=== PATIENT | male | born 1955 | race Caucasian/White ===

== ENCOUNTER → 2016-05-29 | Outpatient (REF) | payer OTHER | LOC: M SFHCCLAY 06:46 | PROVIDERS: ATTEND Nurse Practitioner | DX: Z53.8 Procedure and treatment not carried out for other reasons (principal); E11.8 Type 2 diabetes mellitus with unspecified complications ==

== ENCOUNTER → 2016-06-03 | Outpatient (REF) | payer OTHER ==
[2016-06-03 19:04] LABS: ALBUMIN 3.5 GM/DL (3.2-5.2); ALBUMIN/GLOBULIN RATIO 0.92 (1.00-1.93); ALKALINE PHOSPHATASE 83 U/L (45-117); ALT/SGPT 17 U/L (12-78); ANION GAP 11 MEQ/L (8-16); AST/SGOT 9 U/L (15-37); BILIRUBIN,TOTAL 0.4 MG/DL (0.2-1.0); BLOOD UREA NITROGEN 16 MG/DL (7-18); CALCIUM LEVEL 9.2 MG/DL (8.5-10.1); CARBON DIOXIDE LEVEL 23 MEQ/L (21-32); CHLORIDE LEVEL 102 MEQ/L (98-107); CHOLESTEROL LEVEL 173 MG/DL (<200); CREATININE FOR GFR 0.86 MG/DL (0.70-1.30); GLOMERULAR FILTRATION RATE > 60.0 (>56); GLUCOSE, FASTING 256 MG/DL (70-105); POTASSIUM SERUM 4.4 MEQ/L (3.5-5.1); SODIUM LEVEL 136 MEQ/L (136-145); TOTAL PROTEIN 7.3 GM/DL (6.4-8.2); TRIGLYCERIDES LEVEL 125 MG/DL (<150)
== END ==
LOC: M SFHCCLAY 07:27
PROVIDERS: ATTEND Nurse Practitioner
DX: E11.8 Type 2 diabetes mellitus with unspecified complications (principal)

== ENCOUNTER → 2016-08-21 | Outpatient (CLI) | payer OTHER ==
--- NOTE | 2016-08-21 15:26 | REP ---
UNILATERAL LEFT RIBS, PA CHEST, SIX VIEWS: HISTORY: Contusion. The lungs are clear. The heart is upper limits of normal in size. The pulmonary vasculature is normal in appearance. The bony structure is intact. IMPRESSION: No acute disease. Signed by Blas Jarrell MD 08/21/2016 03:29 P
== END ==
LOC: M WUC 14:01
PROVIDERS: ATTEND Physician Assistant
DX: S20.212A Contusion of left front wall of thorax, initial encounter (principal); X58.XXXA Exposure to other specified factors, initial encounter; Y92.89 Other specified places as the place of occurrence of the external cause; Y93.89 Activity, other specified; Y99.8 Other external cause status

== ENCOUNTER → 2016-08-28 | Outpatient (REF) | payer OTHER ==
[2016-08-28 17:30] LABS: ALBUMIN 3.6 GM/DL (3.2-5.2); ALBUMIN/GLOBULIN RATIO 1.09 (1.00-1.93); ALKALINE PHOSPHATASE 114 U/L (45-117); ALT/SGPT 19 U/L (12-78); ANION GAP 6 MEQ/L (8-16); AST/SGOT 10 U/L (15-37); BILIRUBIN,TOTAL 0.4 MG/DL (0.2-1.0); BLOOD UREA NITROGEN 17 MG/DL (7-18); CALCIUM LEVEL 9.1 MG/DL (8.5-10.1); CARBON DIOXIDE LEVEL 27 MEQ/L (21-32); CHLORIDE LEVEL 103 MEQ/L (98-107); CREATININE FOR GFR 0.93 MG/DL (0.70-1.30); GLOMERULAR FILTRATION RATE > 60.0 (>56); GLUCOSE, FASTING 193 MG/DL (70-105); SODIUM LEVEL 136 MEQ/L (136-145); TOTAL PROTEIN 6.9 GM/DL (6.4-8.2)
== END ==
LOC: M SFHCCLAY 09:02
PROVIDERS: ATTEND Nurse Practitioner
DX: E11.8 Type 2 diabetes mellitus with unspecified complications (principal)

== ENCOUNTER → 2016-12-04 | Outpatient (REF) | payer OTHER ==
[2016-12-04 18:15] LABS: ALBUMIN 3.7 GM/DL (3.2-5.2); ALBUMIN/GLOBULIN RATIO 1.09 (1.00-1.93); ALKALINE PHOSPHATASE 104 U/L (45-117); ALT/SGPT 19 U/L (12-78); ANION GAP 9 MEQ/L (8-16); AST/SGOT 10 U/L (15-37); BILIRUBIN,TOTAL 0.5 MG/DL (0.2-1.0); BLOOD UREA NITROGEN 24 MG/DL (7-18); CALCIUM LEVEL 9.1 MG/DL (8.8-10.2); CARBON DIOXIDE LEVEL 25 MEQ/L (21-32); CHLORIDE LEVEL 101 MEQ/L (98-107); CHOLESTEROL LEVEL 187 MG/DL (<200); CREATININE FOR GFR 1.12 MG/DL (0.70-1.30); GLOMERULAR FILTRATION RATE > 60.0 (>49); GLUCOSE, FASTING 225 MG/DL (80-110); POTASSIUM SERUM 4.3 MEQ/L (3.5-5.1); SODIUM LEVEL 135 MEQ/L (136-145); TOTAL PROTEIN 7.1 GM/DL (6.4-8.2); TRIGLYCERIDES LEVEL 161 MG/DL (<150)
== END ==
LOC: M SFHCCLAY 07:08
PROVIDERS: ATTEND Nurse Practitioner
DX: E11.8 Type 2 diabetes mellitus with unspecified complications (principal)

== ENCOUNTER → 2016-12-04 | Outpatient (REF) | payer OTHER | LOC: M LABDRAWC 16:17 | PROVIDERS: ATTEND Physician Assistant Medical | DX: G40.909 Epilepsy, unspecified, not intractable, without status epilepticus (principal) ==

== ENCOUNTER 2017-08-23 12:13 | Inpatient (IN) | payer OTHER ==
[2017-08-23] MEDS: ONDANSETRON 4MG/2ML VIAL (J2405) IV (12:54)
[2017-08-23] MEDS: NS 1,000 ML IV ×2 (12:54→18:30)
[2017-08-23] MEDS: MORPHINE 4 MG/ML 1ML VIAL/SYRINGE (J2270) IV ×3 (12:54→15:38)
[2017-08-23 12:55] LABS: BASO # 0.1 10^3/uL (0.0-0.2); BASO % 0.3 % (0.0-1.0); EOS # 0.1 10^3/uL (0.0-0.50); EOS % 0.2 % (0.0-3.0); HEMATOCRIT 51.5 % (42.0-52.0); HEMOGLOBIN 16.8 g/dl (13.5-17.5); IMMATURE GRANULOCYTE % 0.8 % (0-3.0); LYMPH # 2.2 10^3/uL (1.5-4.5); LYMPH % 8.6 % (24.0-44.0); MEAN CORPUSCULAR HEMOGLOBIN 27.8 pg (27.0-33.0); MEAN CORPUSCULAR HGB CONC 32.6 g/dl (32.0-36.5); MEAN CORPUSCULAR VOLUME 85.3 fl (80.0-96.0); MONO # 1.8 10^3/uL (0.0-0.8); MONO % 7.1 % (0.0-5.0); NEUTROPHILS # 21.5 10^3/uL (1.8-7.7); PLATELET COUNT, AUTOMATED 363 10^3/uL (150-450); RED BLOOD COUNT 6.04 10^6/uL (4.30-6.10); WHITE BLOOD COUNT 25.9 10^3/uL (4.0-10.0)
[2017-08-23 13:04] LABS: INR 1.08; PROTHROMBIN TIME 14.2 SECONDS (12.4-14.5)
[2017-08-23 13:20] LABS: ALBUMIN 3.4 GM/DL (3.2-5.2); ALBUMIN/GLOBULIN RATIO 0.94 (1.00-1.93); ALKALINE PHOSPHATASE 95 U/L (45-117); ALT/SGPT 14 U/L (12-78); ANION GAP 7 MEQ/L (8-16); AST/SGOT 12 U/L (7-37); BILIRUBIN,DIRECT < 0.1 MG/DL (0.0-0.2); BILIRUBIN,TOTAL 0.4 MG/DL (0.2-1.0); BLOOD UREA NITROGEN 12 MG/DL (7-18); CALCIUM LEVEL 8.5 MG/DL (8.8-10.2); CARBON DIOXIDE LEVEL 27 MEQ/L (21-32); CHLORIDE LEVEL 107 MEQ/L (98-107); CREATININE FOR GFR 1.19 MG/DL (0.70-1.30); GLOMERULAR FILTRATION RATE > 60.0 (>49); GLUCOSE, FASTING 226 MG/DL (70-100); LIPASE 250 U/L (73-393); POTASSIUM SERUM 4.1 MEQ/L (3.5-5.1); SODIUM LEVEL 141 MEQ/L (136-145)
[2017-08-23 13:21] LABS: CK-MB VALUE MASS < 1.0 NG/ML (<3.6); CPK CREATINE PHOSPHOKINASE 52 U/L (39-308); MB/CK RELATIVE INDEX 1.92 (< OR =4); TROPONIN I < 0.02 NG/ML (< 0.10)
[2017-08-23] MEDS ORDERED: ISOVUE-370 76% 100ML VIAL (Q9967) As Ordered (14:15)
[2017-08-23] MEDS: AMPICILLIN SOD/SULBACTAM SOD 3 GM in D5W MINI-BAG PLUS 100 ML IV ×2 (15:38→22:00)
[2017-08-23] MEDS ORDERED: SUCCINYLCHOLINE 100 MG/5 ML SYRINGE (J0330) As Ordered ×2 (16:42)
[2017-08-23] MEDS ORDERED: LIDOCAINE 2% INJ 100 MG/5 ML SDV (FOR ANES.) As Ordered (16:42)
[2017-08-23] MEDS ORDERED: MIDAZOLAM INJ 2 MG/2 ML VIAL (J2250) As Ordered (16:42)
[2017-08-23] MEDS ORDERED: ROCURONIUM BROMIDE 50 MG/5 ML VIAL As Ordered (16:42)
[2017-08-23] MEDS ORDERED: fentaNYL 250 MCG/5 ML INJECTION (J3010) As Ordered (16:42)
[2017-08-23] MEDS ORDERED: PROPOFOL 200 MG/20 ML VIAL As Ordered (16:42)
[2017-08-23] MEDS ORDERED: dexameTHASONE 4 MG/ML 1ML VIAL (J1100) As Ordered (17:02)
[2017-08-23] MEDS: BUPIVACAINE HCL 0.25% 30 ML VIAL As Ordered (17:10)
[2017-08-23] MEDS: BUPIVACAINE LIPOSOME/PF 1.3% 20 ML VIAL (13.3MG/ML)(EXPAREL) As Ordered (17:10)
[2017-08-23] MEDS ORDERED: ONDANSETRON 4MG/2ML VIAL (J2405) As Ordered (17:41)
[2017-08-23] MEDS ORDERED: GLYCOPYRROLATE INJ 0.2 MG/ML 2 ML VIAL As Ordered (17:41)
[2017-08-23] MEDS ORDERED: NEOSTIGMINE 10 MG/10 ML VIAL (J2710) As Ordered (17:41)
[2017-08-23] MEDS ORDERED: KETOROLAC 60 MG/2 ML VIAL (J1885) As Ordered (17:42)
[2017-08-23] MEDS ORDERED: MORPHINE 1MG/ML IN 0.9% NACL 100ML IV BAG As Ordered (17:56)
[2017-08-23] MEDS ORDERED: NS 1,000 ML IV (17:59)
[2017-08-23] MEDS ORDERED: EPIDURAL/PCA KEYS XX (18:00)
[2017-08-23] MEDS ORDERED: NALBUPHINE HCL 10 MG/ML AMP (J2300) IV (18:00)
[2017-08-23] MEDS ORDERED: MORPHINE 1MG/ML IN 0.9% NACL 100ML IV BAG IV (18:00)
[2017-08-23] MEDS ORDERED: IPRATROPIUM 0.5MG/ALBUTEROL 2.5MG INH SOL UD 3ML (DUONEB)(J7620) NEB (18:00)
[2017-08-23] MEDS ORDERED: METOCLOPRAMIDE INJ 10MG/2ML VIAL (J2765) IV (18:00)
[2017-08-23] MEDS ORDERED: NALOXONE INJ 0.4 MG/1 ML VIAL (J2310) IV (18:00)
[2017-08-23] MEDS: HumaLOG INSULIN (NovoLOG) PER UNIT SC (18:00)
[2017-08-23] MEDS ORDERED: ONDANSETRON 4MG/2ML VIAL (J2405) IV ×3 (18:00→18:30)
[2017-08-23] MEDS ORDERED: PROMETHAZINE INJ 25 MG/ML VIAL (J2550) IV (18:00)
[2017-08-23] MEDS ORDERED: diphenhydrAMINE INJ 50MG/ML VIAL (J1200) IV (18:00)
[2017-08-23] MEDS: LR 1,000 ML IV (18:14)
[2017-08-23] MEDS ORDERED: fentaNYL 100 MCG/2 ML INJECTION (J3010) IV (18:30)
[2017-08-23] MEDS ORDERED: PERCOCET 5MG/325MG TAB PO (18:30)
[2017-08-23] MEDS ORDERED: HYDROmorphone HCL 1 MG/ML SYRINGE (J1170) IV (18:30)
[2017-08-23 18:32] LABS: BEDSIDE GLUCOSE 205 MG/DL (80-115)
[2017-08-23] MEDS ORDERED: PILL CRUSHER/CUTTER 1 EACH XX (21:15)
[2017-08-23] MEDS: PANTOPRAZOLE 40MG INJ (PROTONIX) (C9113) IV (21:42)
[2017-08-23] MEDS: levETIRAcetam 250MG TABLET (KEPPRA) PO (21:42)
[2017-08-23] MEDS: lamoTRIgine 100MG TAB PO (21:42)
[2017-08-24 01:58] LABS: BEDSIDE GLUCOSE 202 MG/DL (80-115)
[2017-08-24] MEDS: NS 1,000 ML IV ×4 (02:30→22:18)
[2017-08-24] MEDS: AMPICILLIN SOD/SULBACTAM SOD 3 GM in D5W MINI-BAG PLUS 100 ML IV ×4 (04:00→22:19)
[2017-08-24 05:19] LABS: HEMATOCRIT 48.2 % (42.0-52.0); HEMOGLOBIN 15.6 g/dl (13.5-17.5); MEAN CORPUSCULAR HEMOGLOBIN 27.1 pg (27.0-33.0); MEAN CORPUSCULAR HGB CONC 32.4 g/dl (32.0-36.5); MEAN CORPUSCULAR VOLUME 83.8 fl (80.0-96.0); PLATELET COUNT, AUTOMATED 312 10^3/uL (150-450); RED BLOOD COUNT 5.75 10^6/uL (4.30-6.10); WHITE BLOOD COUNT 25.9 10^3/uL (4.0-10.0)
[2017-08-24 05:45] LABS: ALBUMIN 2.4 GM/DL (3.2-5.2); ALBUMIN/GLOBULIN RATIO 0.63 (1.00-1.93); ALKALINE PHOSPHATASE 69 U/L (45-117); ALT/SGPT 13 U/L (12-78); ANION GAP 6 MEQ/L (8-16); AST/SGOT 11 U/L (7-37); BILIRUBIN,TOTAL 0.5 MG/DL (0.2-1.0); BLOOD UREA NITROGEN 18 MG/DL (7-18); CALCIUM LEVEL 8.1 MG/DL (8.8-10.2); CARBON DIOXIDE LEVEL 23 MEQ/L (21-32); CHLORIDE LEVEL 111 MEQ/L (98-107); CREATININE FOR GFR 1.38 MG/DL (0.70-1.30); GLUCOSE, FASTING 193 MG/DL (70-100); POTASSIUM SERUM 4.3 MEQ/L (3.5-5.1); SODIUM LEVEL 140 MEQ/L (136-145); TOTAL PROTEIN 6.2 GM/DL (6.4-8.2)
[2017-08-24] MEDS: IPRATROPIUM 0.5MG/ALBUTEROL 2.5MG INH SOL UD 3ML (DUONEB)(J7620) NEB ×5 (05:58→18:12)
[2017-08-24] MEDS: HumaLOG INSULIN (NovoLOG) PER UNIT SC ×4 (06:00→18:00)
[2017-08-24] MEDS: PANTOPRAZOLE 40MG INJ (PROTONIX) (C9113) IV ×2 (08:33→20:44)
[2017-08-24] MEDS: levETIRAcetam 250MG TABLET (KEPPRA) PO ×2 (08:34→20:43)
[2017-08-24] MEDS: lamoTRIgine 100MG TAB PO ×2 (08:34→20:43)
[2017-08-24] MEDS: LOSARTAN 50 MG TAB PO (08:34)
[2017-08-24] MEDS: MORPHINE 4 MG/ML 1ML VIAL/SYRINGE (J2270) IV ×3 (10:42→21:22)
[2017-08-24 11:49] LABS: BEDSIDE GLUCOSE 184 MG/DL (80-115)
[2017-08-24] MEDS: ALVIMOPAN 12 MG CAPSULE (ENTEREG) PO ×2 (12:14→20:44)
[2017-08-24 12:48] LABS: BEDSIDE GLUCOSE 152 MG/DL (80-115)
[2017-08-24 18:19] LABS: BEDSIDE GLUCOSE 119 MG/DL (80-115)
[2017-08-24] MEDS: amLODIPine 5 MG TAB PO (21:22)
[2017-08-25] MEDS: HumaLOG INSULIN (NovoLOG) PER UNIT SC ×4 (01:29→18:00)
[2017-08-25] MEDS: MORPHINE 4 MG/ML 1ML VIAL/SYRINGE (J2270) IV ×4 (01:30→12:33)
[2017-08-25] MEDS: IPRATROPIUM 0.5MG/ALBUTEROL 2.5MG INH SOL UD 3ML (DUONEB)(J7620) NEB ×6 (02:00→19:32)
[2017-08-25] MEDS: AMPICILLIN SOD/SULBACTAM SOD 3 GM in D5W MINI-BAG PLUS 100 ML IV ×4 (04:29→21:24)
[2017-08-25] MEDS: NS 1,000 ML IV ×3 (04:30→16:59)
[2017-08-25] MEDS: amLODIPine 5 MG TAB PO (04:57)
[2017-08-25 05:26] LABS: HEMOGLOBIN 14.8 g/dl (13.5-17.5); MEAN CORPUSCULAR HEMOGLOBIN 27.8 pg (27.0-33.0); MEAN CORPUSCULAR HGB CONC 32.2 g/dl (32.0-36.5); MEAN CORPUSCULAR VOLUME 86.5 fl (80.0-96.0); PLATELET COUNT, AUTOMATED 275 10^3/uL (150-450); RED BLOOD COUNT 5.32 10^6/uL (4.30-6.10); RED CELL DISTRIBUTION WIDTH 14.2 % (11.5-14.5); WHITE BLOOD COUNT 21.6 10^3/uL (4.0-10.0)
[2017-08-25 05:46] LABS: ALKALINE PHOSPHATASE 64 U/L (45-117); ALT/SGPT 12 U/L (12-78); ANION GAP 7 MEQ/L (8-16); AST/SGOT 7 U/L (7-37); BILIRUBIN,TOTAL 0.3 MG/DL (0.2-1.0); BLOOD UREA NITROGEN 16 MG/DL (7-18); CALCIUM LEVEL 8.1 MG/DL (8.8-10.2); CARBON DIOXIDE LEVEL 25 MEQ/L (21-32); CHLORIDE LEVEL 112 MEQ/L (98-107); CREATININE FOR GFR 0.94 MG/DL (0.70-1.30); GLOMERULAR FILTRATION RATE > 60.0 (>49); GLUCOSE, FASTING 91 MG/DL (70-100); POTASSIUM SERUM 3.6 MEQ/L (3.5-5.1); SODIUM LEVEL 144 MEQ/L (136-145)
[2017-08-25] MEDS: lamoTRIgine 100MG TAB PO ×2 (09:28→21:25)
[2017-08-25] MEDS: LOSARTAN 50 MG TAB PO (09:28)
[2017-08-25] MEDS: PANTOPRAZOLE 40MG INJ (PROTONIX) (C9113) IV ×2 (09:29→21:24)
[2017-08-25] MEDS: levETIRAcetam 250MG TABLET (KEPPRA) PO ×2 (09:29→21:25)
[2017-08-25] MEDS: ALVIMOPAN 12 MG CAPSULE (ENTEREG) PO ×2 (09:47→21:25)
[2017-08-25 11:53] LABS: BEDSIDE GLUCOSE 87 MG/DL (80-115)
[2017-08-25 16:36] LABS: BEDSIDE GLUCOSE 85 MG/DL (80-115)
[2017-08-25 17:54] LABS: BEDSIDE GLUCOSE 77 MG/DL (80-115)
[2017-08-26 00:50] LABS: BEDSIDE GLUCOSE 88 MG/DL (80-115)
[2017-08-26] MEDS: IPRATROPIUM 0.5MG/ALBUTEROL 2.5MG INH SOL UD 3ML (DUONEB)(J7620) NEB ×4 (02:00→20:00)
[2017-08-26] MEDS: NS 1,000 ML IV ×3 (02:21→16:12)
[2017-08-26] MEDS: MORPHINE 4 MG/ML 1ML VIAL/SYRINGE (J2270) IV ×5 (02:27→21:24)
[2017-08-26] MEDS: AMPICILLIN SOD/SULBACTAM SOD 3 GM in D5W MINI-BAG PLUS 100 ML IV ×4 (04:51→21:53)
[2017-08-26] MEDS: HumaLOG INSULIN (NovoLOG) PER UNIT SC ×5 (06:27→23:49)
[2017-08-26 06:31] LABS: BEDSIDE GLUCOSE 78 MG/DL (80-115)
[2017-08-26 06:44] LABS: HEMATOCRIT 45.3 % (42.0-52.0); HEMOGLOBIN 14.6 g/dl (13.5-17.5); MEAN CORPUSCULAR HEMOGLOBIN 27.7 pg (27.0-33.0); MEAN CORPUSCULAR HGB CONC 32.2 g/dl (32.0-36.5); MEAN CORPUSCULAR VOLUME 85.8 fl (80.0-96.0); PLATELET COUNT, AUTOMATED 298 10^3/uL (150-450); RED BLOOD COUNT 5.28 10^6/uL (4.30-6.10); RED CELL DISTRIBUTION WIDTH 13.8 % (11.5-14.5); WHITE BLOOD COUNT 18.9 10^3/uL (4.0-10.0)
[2017-08-26 07:05] LABS: ALBUMIN 2.1 GM/DL (3.2-5.2); ALBUMIN/GLOBULIN RATIO 0.47 (1.00-1.93); ALKALINE PHOSPHATASE 67 U/L (45-117); ALT/SGPT 7 U/L (12-78); ANION GAP 9 MEQ/L (8-16); AST/SGOT 7 U/L (7-37); BILIRUBIN,TOTAL 0.4 MG/DL (0.2-1.0); BLOOD UREA NITROGEN 13 MG/DL (7-18); CALCIUM LEVEL 8.4 MG/DL (8.8-10.2); CARBON DIOXIDE LEVEL 24 MEQ/L (21-32); CHLORIDE LEVEL 112 MEQ/L (98-107); CREATININE FOR GFR 0.88 MG/DL (0.70-1.30); GLOMERULAR FILTRATION RATE > 60.0 (>49); GLUCOSE, FASTING 87 MG/DL (70-100); POTASSIUM SERUM 3.6 MEQ/L (3.5-5.1); SODIUM LEVEL 145 MEQ/L (136-145); TOTAL PROTEIN 6.6 GM/DL (6.4-8.2)
[2017-08-26] MEDS: levETIRAcetam 250MG TABLET (KEPPRA) PO ×2 (09:18→21:24)
[2017-08-26] MEDS: lamoTRIgine 100MG TAB PO ×2 (09:19→21:25)
[2017-08-26] MEDS: ALVIMOPAN 12 MG CAPSULE (ENTEREG) PO ×2 (09:19→21:24)
[2017-08-26] MEDS: LOSARTAN 50 MG TAB PO (09:19)
[2017-08-26] MEDS: PANTOPRAZOLE 40MG INJ (PROTONIX) (C9113) IV ×2 (09:23→21:24)
[2017-08-26 11:44] LABS: BEDSIDE GLUCOSE 104 MG/DL (80-115)
[2017-08-26 17:37] LABS: BEDSIDE GLUCOSE 89 MG/DL (80-115)
[2017-08-26 23:54] LABS: BEDSIDE GLUCOSE 90 MG/DL (80-115)
[2017-08-27] MEDS: IPRATROPIUM 0.5MG/ALBUTEROL 2.5MG INH SOL UD 3ML (DUONEB)(J7620) NEB ×4 (02:00→20:00)
[2017-08-27] MEDS: AMPICILLIN SOD/SULBACTAM SOD 3 GM in D5W MINI-BAG PLUS 100 ML IV ×4 (03:37→22:03)
[2017-08-27] MEDS: NS 1,000 ML IV ×3 (03:37→12:17)
[2017-08-27] MEDS: MORPHINE 4 MG/ML 1ML VIAL/SYRINGE (J2270) IV ×5 (05:49→22:06)
[2017-08-27] MEDS: HumaLOG INSULIN (NovoLOG) PER UNIT SC ×5 (06:00→21:00)
[2017-08-27 06:36] LABS: BEDSIDE GLUCOSE 88 MG/DL (80-115)
[2017-08-27 07:18] LABS: HEMOGLOBIN 14.3 g/dl (13.5-17.5); MEAN CORPUSCULAR HEMOGLOBIN 28.1 pg (27.0-33.0); MEAN CORPUSCULAR HGB CONC 33.3 g/dl (32.0-36.5); MEAN CORPUSCULAR VOLUME 84.5 fl (80.0-96.0); PLATELET COUNT, AUTOMATED 304 10^3/uL (150-450); RED BLOOD COUNT 5.09 10^6/uL (4.30-6.10); RED CELL DISTRIBUTION WIDTH 13.9 % (11.5-14.5); WHITE BLOOD COUNT 14.7 10^3/uL (4.0-10.0)
[2017-08-27 07:39] LABS: ALBUMIN 1.9 GM/DL (3.2-5.2); ALBUMIN/GLOBULIN RATIO 0.44 (1.00-1.93); ALKALINE PHOSPHATASE 60 U/L (45-117); ALT/SGPT 7 U/L (12-78); ANION GAP 11 MEQ/L (8-16); AST/SGOT 7 U/L (7-37); BILIRUBIN,TOTAL 0.3 MG/DL (0.2-1.0); BLOOD UREA NITROGEN 12 MG/DL (7-18); CALCIUM LEVEL 8.2 MG/DL (8.8-10.2); CARBON DIOXIDE LEVEL 22 MEQ/L (21-32); CHLORIDE LEVEL 110 MEQ/L (98-107); CREATININE FOR GFR 0.61 MG/DL (0.70-1.30); GLOMERULAR FILTRATION RATE > 60.0 (>49); GLUCOSE, FASTING 92 MG/DL (70-100); POTASSIUM SERUM 3.3 MEQ/L (3.5-5.1); SODIUM LEVEL 143 MEQ/L (136-145); TOTAL PROTEIN 6.2 GM/DL (6.4-8.2)
[2017-08-27] MEDS ORDERED: E-Z-PAQUE 96% w/w SUSP 176GM BTL As Ordered (09:37)
[2017-08-27] MEDS ORDERED: E-Z-HD 98% w/w 340GM SUSP BTL As Ordered (09:37)
[2017-08-27] MEDS ORDERED: E-Z-GAS II EFFERVESCENT PACKET (SODIUM BICARB./CITRIC ACID/SIMETHICONE) As Ordered (09:37)
[2017-08-27] MEDS ORDERED: GASTROGRAFIN SOLUTION 30ML (Q9963) As Ordered (10:10)
[2017-08-27] MEDS: levETIRAcetam 250MG TABLET (KEPPRA) PO ×2 (11:32→22:07)
[2017-08-27] MEDS: lamoTRIgine 100MG TAB PO ×2 (11:33→22:07)
[2017-08-27] MEDS: ALVIMOPAN 12 MG CAPSULE (ENTEREG) PO ×2 (11:35→22:07)
[2017-08-27] MEDS: LOSARTAN 50 MG TAB PO (11:35)
[2017-08-27] MEDS: amLODIPine 5 MG TAB PO (11:36)
[2017-08-27] MEDS: PANTOPRAZOLE 40MG INJ (PROTONIX) (C9113) IV ×2 (11:48→22:06)
[2017-08-27 12:00] LABS: BEDSIDE GLUCOSE 87 MG/DL (80-115)
[2017-08-27] MEDS ORDERED: GLUCOSE 4 GM CHEW TABLET PO (12:00)
[2017-08-27] MEDS ORDERED: DEXTROSE 50% 50 ML SYRINGE IV (12:00)
[2017-08-27] MEDS ORDERED: GLUCAGON FOR INJ 1 MG VIAL (J1610) SC (12:00)
[2017-08-27 17:07] LABS: BEDSIDE GLUCOSE 125 MG/DL (80-115)
[2017-08-27 20:19] LABS: BEDSIDE GLUCOSE 132 MG/DL (80-115)
[2017-08-27] MEDS: POTASSIUM CHLORIDE 10 MEQ SR TABLET PO (22:06)
[2017-08-27] MEDS: hydroCHLOROthiazide 25 MG TAB PO (22:07)
[2017-08-28] MEDS: IPRATROPIUM 0.5MG/ALBUTEROL 2.5MG INH SOL UD 3ML (DUONEB)(J7620) NEB ×4 (02:00→20:00)
[2017-08-28] MEDS: AMPICILLIN SOD/SULBACTAM SOD 3 GM in D5W MINI-BAG PLUS 100 ML IV ×4 (04:11→21:33)
[2017-08-28] MEDS: MORPHINE 4 MG/ML 1ML VIAL/SYRINGE (J2270) IV ×4 (04:39→19:30)
[2017-08-28 06:27] LABS: HEMATOCRIT 43.5 % (42.0-52.0); HEMOGLOBIN 14.3 g/dl (13.5-17.5); MEAN CORPUSCULAR HEMOGLOBIN 27.4 pg (27.0-33.0); MEAN CORPUSCULAR HGB CONC 32.9 g/dl (32.0-36.5); MEAN CORPUSCULAR VOLUME 83.3 fl (80.0-96.0); PLATELET COUNT, AUTOMATED 315 10^3/uL (150-450); RED BLOOD COUNT 5.22 10^6/uL (4.30-6.10); RED CELL DISTRIBUTION WIDTH 13.9 % (11.5-14.5); WHITE BLOOD COUNT 12.3 10^3/uL (4.0-10.0)
[2017-08-28 06:59] LABS: ALBUMIN 2.1 GM/DL (3.2-5.2); ALBUMIN/GLOBULIN RATIO 0.48 (1.00-1.93); ALKALINE PHOSPHATASE 70 U/L (45-117); ALT/SGPT 12 U/L (12-78); ANION GAP 11 MEQ/L (8-16); AST/SGOT 13 U/L (7-37); BILIRUBIN,TOTAL 0.4 MG/DL (0.2-1.0); BLOOD UREA NITROGEN 10 MG/DL (7-18); CALCIUM LEVEL 8.4 MG/DL (8.8-10.2); CARBON DIOXIDE LEVEL 24 MEQ/L (21-32); CHLORIDE LEVEL 106 MEQ/L (98-107); CREATININE FOR GFR 1.04 MG/DL (0.70-1.30); GLUCOSE, FASTING 162 MG/DL (70-100); POTASSIUM SERUM 3.3 MEQ/L (3.5-5.1); SODIUM LEVEL 141 MEQ/L (136-145); TOTAL PROTEIN 6.5 GM/DL (6.4-8.2)
[2017-08-28 07:08] LABS: GLOMERULAR FILTRATION RATE > 60.0 (>49)
[2017-08-28] MEDS: HumaLOG INSULIN (NovoLOG) PER UNIT SC ×4 (08:04→21:00)
[2017-08-28] MEDS ORDERED: hydroCHLOROthiazide 25 MG TAB PO (09:00)
[2017-08-28] MEDS: lamoTRIgine 100MG TAB PO ×2 (10:01→19:30)
[2017-08-28] MEDS: levETIRAcetam 250MG TABLET (KEPPRA) PO ×2 (10:02→19:30)
[2017-08-28] MEDS: ALVIMOPAN 12 MG CAPSULE (ENTEREG) PO ×2 (10:03→19:30)
[2017-08-28] MEDS: LOSARTAN 50 MG TAB PO (10:03)
[2017-08-28] MEDS: amLODIPine 5 MG TAB PO (10:04)
[2017-08-28] MEDS: hydroCHLOROthiazide 25 MG TAB PO (10:04)
[2017-08-28] MEDS: PANTOPRAZOLE 40MG TAB (PROTONIX) PO ×2 (10:05→19:30)
[2017-08-28] MEDS: POTASSIUM CHLORIDE 10 MEQ SR TABLET PO (11:14)
[2017-08-28 12:17] LABS: BEDSIDE GLUCOSE 105 MG/DL (80-115)
[2017-08-28 17:21] LABS: BEDSIDE GLUCOSE 143 MG/DL (80-115)
[2017-08-28] MEDS ORDERED: ISOVUE-370 76% 100ML VIAL (Q9967) As Ordered (17:52)
[2017-08-28 21:20] LABS: BEDSIDE GLUCOSE 138 MG/DL (80-115)
[2017-08-29] MEDS: IPRATROPIUM 0.5MG/ALBUTEROL 2.5MG INH SOL UD 3ML (DUONEB)(J7620) NEB ×3 (02:00→20:00)
[2017-08-29] MEDS: MORPHINE 4 MG/ML 1ML VIAL/SYRINGE (J2270) IV ×3 (02:23→21:30)
[2017-08-29] MEDS: AMPICILLIN SOD/SULBACTAM SOD 3 GM in D5W MINI-BAG PLUS 100 ML IV ×4 (04:09→21:30)
[2017-08-29 06:51] LABS: HEMATOCRIT 43.5 % (42.0-52.0); HEMOGLOBIN 14.2 g/dl (13.5-17.5); MEAN CORPUSCULAR HEMOGLOBIN 27.8 pg (27.0-33.0); MEAN CORPUSCULAR HGB CONC 32.6 g/dl (32.0-36.5); MEAN CORPUSCULAR VOLUME 85.1 fl (80.0-96.0); PLATELET COUNT, AUTOMATED 300 10^3/uL (150-450); RED BLOOD COUNT 5.11 10^6/uL (4.30-6.10); RED CELL DISTRIBUTION WIDTH 14.1 % (11.5-14.5); WHITE BLOOD COUNT 10.1 10^3/uL (4.0-10.0)
[2017-08-29 07:14] LABS: ALBUMIN 2.1 GM/DL (3.2-5.2); ALKALINE PHOSPHATASE 62 U/L (45-117); ALT/SGPT 12 U/L (12-78); ANION GAP 6 MEQ/L (8-16); AST/SGOT 16 U/L (7-37); BILIRUBIN,TOTAL 0.3 MG/DL (0.2-1.0); BLOOD UREA NITROGEN 9 MG/DL (7-18); CALCIUM LEVEL 8.6 MG/DL (8.8-10.2); CARBON DIOXIDE LEVEL 32 MEQ/L (21-32); CHLORIDE LEVEL 103 MEQ/L (98-107); CREATININE FOR GFR 0.99 MG/DL (0.70-1.30); GLOMERULAR FILTRATION RATE > 60.0 (>49); GLUCOSE, FASTING 121 MG/DL (70-100); POTASSIUM SERUM 3.5 MEQ/L (3.5-5.1); SODIUM LEVEL 141 MEQ/L (136-145); TOTAL PROTEIN 6.3 GM/DL (6.4-8.2)
[2017-08-29] MEDS: LOSARTAN 50 MG TAB PO (08:38)
[2017-08-29] MEDS: hydroCHLOROthiazide 25 MG TAB PO (08:38)
[2017-08-29] MEDS: lamoTRIgine 100MG TAB PO ×2 (08:38→21:15)
[2017-08-29] MEDS: ALVIMOPAN 12 MG CAPSULE (ENTEREG) PO ×2 (08:38→21:14)
[2017-08-29] MEDS: amLODIPine 5 MG TAB PO (08:38)
[2017-08-29] MEDS: levETIRAcetam 250MG TABLET (KEPPRA) PO ×2 (08:38→21:15)
[2017-08-29] MEDS: PANTOPRAZOLE 40MG TAB (PROTONIX) PO ×2 (08:38→21:14)
[2017-08-29] MEDS: HumaLOG INSULIN (NovoLOG) PER UNIT SC ×4 (08:39→21:15)
[2017-08-29] MEDS: POTASSIUM CHLORIDE 10 MEQ SR TABLET PO (08:39)
[2017-08-29 12:07] LABS: BEDSIDE GLUCOSE 172 MG/DL (80-115)
[2017-08-29 16:47] LABS: BEDSIDE GLUCOSE 154 MG/DL (80-115)
[2017-08-29 21:05] LABS: BEDSIDE GLUCOSE 143 MG/DL (80-115)
[2017-08-30] MEDS: IPRATROPIUM 0.5MG/ALBUTEROL 2.5MG INH SOL UD 3ML (DUONEB)(J7620) NEB ×2 (02:00→20:00)
[2017-08-30] MEDS: MORPHINE 4 MG/ML 1ML VIAL/SYRINGE (J2270) IV (04:27)
[2017-08-30] MEDS: AMPICILLIN SOD/SULBACTAM SOD 3 GM in D5W MINI-BAG PLUS 100 ML IV ×4 (04:27→21:20)
[2017-08-30 06:16] LABS: HEMOGLOBIN 13.7 g/dl (13.5-17.5); MEAN CORPUSCULAR HEMOGLOBIN 27.5 pg (27.0-33.0); MEAN CORPUSCULAR HGB CONC 32.6 g/dl (32.0-36.5); MEAN CORPUSCULAR VOLUME 84.3 fl (80.0-96.0); PLATELET COUNT, AUTOMATED 298 10^3/uL (150-450); RED BLOOD COUNT 4.98 10^6/uL (4.30-6.10)
[2017-08-30 06:37] LABS: ALBUMIN/GLOBULIN RATIO 0.49 (1.00-1.93); ALKALINE PHOSPHATASE 58 U/L (45-117); ALT/SGPT 12 U/L (12-78); ANION GAP 7 MEQ/L (8-16); AST/SGOT 13 U/L (7-37); BILIRUBIN,TOTAL 0.2 MG/DL (0.2-1.0); BLOOD UREA NITROGEN 13 MG/DL (7-18); CALCIUM LEVEL 8.4 MG/DL (8.8-10.2); CARBON DIOXIDE LEVEL 32 MEQ/L (21-32); CHLORIDE LEVEL 101 MEQ/L (98-107); CREATININE FOR GFR 1.03 MG/DL (0.70-1.30); GLOMERULAR FILTRATION RATE > 60.0 (>49); GLUCOSE, FASTING 137 MG/DL (70-100); POTASSIUM SERUM 3.3 MEQ/L (3.5-5.1); SODIUM LEVEL 140 MEQ/L (136-145); TOTAL PROTEIN 6.1 GM/DL (6.4-8.2)
[2017-08-30] MEDS: ALVIMOPAN 12 MG CAPSULE (ENTEREG) PO ×2 (08:20→21:20)
[2017-08-30] MEDS: amLODIPine 5 MG TAB PO (08:20)
[2017-08-30] MEDS: PANTOPRAZOLE 40MG TAB (PROTONIX) PO ×2 (08:20→21:20)
[2017-08-30] MEDS: LOSARTAN 50 MG TAB PO (08:21)
[2017-08-30] MEDS: POTASSIUM CHLORIDE 10 MEQ SR TABLET PO (08:21)
[2017-08-30] MEDS: hydroCHLOROthiazide 25 MG TAB PO (08:21)
[2017-08-30] MEDS: HumaLOG INSULIN (NovoLOG) PER UNIT SC ×4 (08:22→21:20)
[2017-08-30] MEDS: lamoTRIgine 100MG TAB PO ×2 (08:22→21:20)
[2017-08-30] MEDS: levETIRAcetam 250MG TABLET (KEPPRA) PO ×2 (08:22→21:20)
[2017-08-30] MEDS ORDERED: NORCO, ANEXSIA 5/325MG TABLET (HYDROcodone/ACETAMINOPHEN) PO (11:00)
[2017-08-30 11:59] LABS: BEDSIDE GLUCOSE 178 MG/DL (80-115)
[2017-08-30] MEDS: NORCO, ANEXSIA 5/325MG TABLET (HYDROcodone/ACETAMINOPHEN) PO ×2 (13:54→21:26)
[2017-08-30 16:45] LABS: BEDSIDE GLUCOSE 150 MG/DL (80-115)
[2017-08-30] MEDS: ENOXAPARIN 40 MG/0.4 ML SYRINGE (J1650) SC (16:56)
[2017-08-30 21:51] LABS: BEDSIDE GLUCOSE 187 MG/DL (80-115)
[2017-08-31] MEDS: IPRATROPIUM 0.5MG/ALBUTEROL 2.5MG INH SOL UD 3ML (DUONEB)(J7620) NEB ×2 (02:00→07:39)
[2017-08-31] MEDS: AMPICILLIN SOD/SULBACTAM SOD 3 GM in D5W MINI-BAG PLUS 100 ML IV ×2 (03:45→10:00)
[2017-08-31] MEDS: NORCO, ANEXSIA 5/325MG TABLET (HYDROcodone/ACETAMINOPHEN) PO ×2 (03:45→08:49)
[2017-08-31 05:53] LABS: BEDSIDE GLUCOSE 119 MG/DL (80-115)
[2017-08-31] MEDS: HumaLOG INSULIN (NovoLOG) PER UNIT SC (08:47)
[2017-08-31] MEDS: hydroCHLOROthiazide 25 MG TAB PO (08:47)
[2017-08-31] MEDS: levETIRAcetam 250MG TABLET (KEPPRA) PO (08:47)
[2017-08-31] MEDS: PANTOPRAZOLE 40MG TAB (PROTONIX) PO (08:47)
[2017-08-31] MEDS: amLODIPine 5 MG TAB PO (08:48)
[2017-08-31] MEDS: LOSARTAN 50 MG TAB PO (08:48)
[2017-08-31] MEDS: lamoTRIgine 100MG TAB PO (08:48)
[2017-08-31] MEDS: POTASSIUM CHLORIDE 10 MEQ SR TABLET PO (08:48)
[2017-08-31] MEDS: ENOXAPARIN 40 MG/0.4 ML SYRINGE (J1650) SC (08:49)
== END 2017-08-31 11:05 | disposition home or self-care (01) | DRG 223 ==
LOC: M MS5PR 08-25 17:14 → M ED 12:13 → M ED INP 15:27 → M PCU 18:53
PROC: 0DU907Z Supplement Duodenum with Autologous Tissue Substitute, Open Approach (ICD-10-PCS; principal; 2017-08-23 15:42)
PROC: 0WQF0ZZ Repair Abdominal Wall, Open Approach (ICD-10-PCS; 2017-08-23 15:42)
DX: K26.1 Acute duodenal ulcer with perforation (principal); E11.40 Type 2 diabetes mellitus with diabetic neuropathy, unspecified; E66.01 Morbid (severe) obesity due to excess calories; G40.409 Other generalized epilepsy and epileptic syndromes, not intractable, without status epilepticus; K56.7 Ileus, unspecified; J44.9 Chronic obstructive pulmonary disease, unspecified; J98.11 Atelectasis; K42.9 Umbilical hernia without obstruction or gangrene; I10 Essential (primary) hypertension; G47.33 Obstructive sleep apnea (adult) (pediatric); F17.210 Nicotine dependence, cigarettes, uncomplicated; Z68.38 Body mass index [BMI] 38.0-38.9, adult

== ENCOUNTER → 2017-12-07 | Outpatient (REF) | payer OTHER ==
[2017-12-10 15:06] LABS: LEVETIRACETAM (KEPPRA) 18.9 ug/mL (10.0-40.0)
[2017-12-10 15:06] LABS: LAMOTRIGINE (LAMICTAL) 3.4 ug/mL (2.0-20.0)
== END ==
LOC: M LABNEURO 10:33
DX: G40.909 Epilepsy, unspecified, not intractable, without status epilepticus (principal)

== ENCOUNTER → 2018-10-20 | Outpatient (REF) | payer OTHER ==
[~2018-10-20] MED LIST: ASPI1TAB15 PO; HYDR-3715 PO; KEPP10002 PO; LAMO100T80 PO; LAMO200T2 PO; LEVE250T5 PO; LOSA100T50 PO; METF500T13 PO; PANT40TA3 PO; TOUJ1.2I SC
[2018-10-20 14:17] LABS: BASO # 0.1 10^3/uL (0.0-0.2); BASO % 0.6 % (0.0-1.0); EOS # 0.4 10^3/uL (0.0-0.50); EOS % 2.7 % (0.0-3.0); HEMATOCRIT 48.8 % (42.0-52.0); LYMPH # 3.5 10^3/uL (1.5-4.5); LYMPH % 25.8 % (24.0-44.0); MEAN CORPUSCULAR HEMOGLOBIN 28.1 pg (27.0-33.0); MEAN CORPUSCULAR HGB CONC 32.8 g/dl (32.0-36.5); MEAN CORPUSCULAR VOLUME 85.6 fl (80.0-96.0); MONO % 7.4 % (0.0-5.0); NEUTROPHILS # 8.3 10^3/uL (1.8-7.7); NEUTROPHILS % 62.2 % (36.0-66.0); PLATELET COUNT, AUTOMATED 298 10^3/uL (150-450); WHITE BLOOD COUNT 13.4 10^3/uL (4.0-10.0)
[2018-10-20 15:36] LABS: HEMOGLOBIN A1c 10.3 %
[2018-10-20 15:56] LABS: ALBUMIN 2.3 GM/DL (3.2-5.2); BILIRUBIN,TOTAL 0.2 MG/DL (0.2-1.0); CALCIUM LEVEL 8.4 MG/DL (8.8-10.2); CREATININE FOR GFR 1.59 MG/DL (0.70-1.30); GLOMERULAR FILTRATION RATE 47.2 (>49); POTASSIUM SERUM 4.2 MEQ/L (3.5-5.1)
[2018-10-20 15:57] LABS: MAU/CREAT RATIO 7727.2 MCG/MG (0.0-30.0)
[2018-10-20 19:57] LABS: TOTAL 25(OH) VITAMIN D 11.8 NG/ML (30.0-100.0)
== END ==
LOC: M SFHCSACK 10:44
PROVIDERS: ATTEND Physician Assistant
DX: R10.12 Left upper quadrant pain (principal); I10 Essential (primary) hypertension; E11.8 Type 2 diabetes mellitus with unspecified complications; Z12.5 Encounter for screening for malignant neoplasm of prostate; E55.9 Vitamin D deficiency, unspecified

== ENCOUNTER → 2018-11-30 | Outpatient (CLI) | payer OTHER ==
[~2018-11-30] MED LIST changes: +EPIP0.3I2 IM; +HYDR12.55 PO; +KEFL250C11 PO; +LEVE500T5 PO; +MOBI4TAB PO; +NICO14DI24 TD; +SIMV20TA2 PO
--- NOTE | 2018-11-30 10:56 | REP ---
Left hand four views: There is a comminuted intra-articular nondisplaced fracture at the base of the thumb distal phalange. There is diffuse demineralization. Joint spaces are unremarkable. There are no calcifications or foreign bodies. Impression: Nondisplaced comminuted interarticular fracture at the base of the thumb distal phalange. Demineralization. Electronically Signed by El Felix MD 11/30/2018 10:47 A
== END ==
LOC: M WUC 09:46
PROVIDERS: ATTEND Physician Assistant
DX: S62.525A Nondisplaced fracture of distal phalanx of left thumb, initial encounter for closed fracture (principal); M80.042A Age-related osteoporosis with current pathological fracture, left hand, initial encounter for fracture; X58.XXXA Exposure to other specified factors, initial encounter; Y92.9 Unspecified place or not applicable; Y93.9 Activity, unspecified; Y99.9 Unspecified external cause status

== ENCOUNTER 2018-12-09 13:36 | Inpatient (IN) | payer OTHER ==
[~2018-12-09] VITALS: Ht 177.8 cm; Wt 119.1 kg
[~2018-12-09 13:36] MED LIST changes: -EPIP0.3I2 IM; -HYDR12.55 PO; -KEFL250C11 PO; -LAMO200T2 PO; +LAMO200T3 PO; -LEVE500T5 PO; -MOBI4TAB PO; -NICO14DI24 TD; -SIMV20TA2 PO
[2018-12-09] MEDS ORDERED: SIMV20TA22 PO (13:50)
[2018-12-09] MEDS ORDERED: MOBI4TAB PO (13:50)
[2018-12-09] MEDS ORDERED: KEFL250C11 PO (13:50)
[2018-12-09] MEDS ORDERED: HYDR12.55 PO (13:50)
[2018-12-09] MEDS ORDERED: NS 1,000 ML IV ONE ×2 (14:15→16:00)
[2018-12-09] MEDS ORDERED: MECLIZINE 25 MG TABLET PO ONE (15:00)
--- NOTE | 2018-12-09 15:10 | REP ---
CT BRAIN WITHOUT CONTRAST: REASON: Trauma. PRIORS: None. TECHNIQUE: 4.5 mm contiguous transaxial sections were obtained from the skull base to the cerebral convexities with thin cuts through the posterior fossa without the administration of intravenous contrast. FINDINGS: The ventricles and sulci are consistent with the patient's age. There are no extra-axial fluid collections. There is no mass effect. The deep cerebral white matter is consistent with the patient's age. The orbital and petrous structures, cerebellopontine angles, and posterior fossa are unremarkable. The sella turcica, cavernous, and paracavernous structures are essentially unremarkable. The visualized portions of the paranasal sinuses and mastoid air cells are clear. Images of the skull base show no gross abnormality. IMPRESSION: Essentially unremarkable CT examination of the brain. Electronically Signed by Napoleon Sands DO 12/09/2018 04:20 P
--- NOTE | 2018-12-09 15:13 | REP ---
REASON: Pain in the neck. PRIORS: None. Vertebral body height and alignment is within normal limits. The disc spaces are symmetric throughout. There is mild disc space narrowing at every level. There is no evidence of an acute fracture. The facet joints are well aligned bilaterally. Degenerative facet and uncovertebral joint changes are seen bilaterally at every level. There is no evidence of an acute fracture. There is no evidence of abnormal paraspinal soft tissue swelling. IMPRESSION: Chronic changes, as described above. Electronically Signed by Napoleon Sands DO 12/09/2018 04:20 P
[2018-12-09 15:17] LABS: ALBUMIN 2.6 GM/DL (3.2-5.2); BILIRUBIN,DIRECT 0.1 MG/DL (0.0-0.2); BILIRUBIN,TOTAL 0.2 MG/DL (0.2-1.0); TOTAL PROTEIN 6.2 GM/DL (6.4-8.2)
--- NOTE | 2018-12-09 15:18 | REP ---
HISTORY: Pain after trauma. COMPARISON: 08/28/2017 The lack of intravenous contrast decreases the sensitivity of the exam. There is mediastinal and hilar adenopathy, status quo. There are no pleural or pericardial effusions. The imaged upper abdomen again shows cholelithiasis and a partially imaged right renal cyst. Note is again made of benign bilateral adrenal gland thickening. Bone window technique throughout the examination shows no evidence of a fracture. Evaluation of the lung kaufman shows them to be stable without interim development of an abnormal nodule, mass or opacity. IMPRESSION: Stable CT findings. There is adenopathy as described above. There is cholelithiasis. There is a partially imaged right renal cyst. There is benign bilateral adrenal gland thickening. Electronically Signed by Napoleon Sands DO 12/09/2018 04:20 P
--- NOTE | 2018-12-09 15:30 | REP ---
Right ankle four views: I suspect there is circumferential soft tissue edema. This should be confirmed clinically. There is no fracture or dislocation. Mineralization joint spaces are normal. There are no calcifications or foreign bodies. There is a calcaneal Achilles spur. Impression: Probable circumferential soft tissue edema. This should be confirmed clinically. Otherwise, essentially negative right ankle. Electronically Signed by El Felix MD 12/09/2018 03:21 P
--- NOTE | 2018-12-09 15:33 | REP ---
Right foot two views: There is widening of the space between the great toe and second digit metatarsals compatible with Lisfranc fracture. There is soft tissue edema over the dorsum. Impression: Probable Lisfranc fracture. Electronically Signed by El Felix MD 12/09/2018 03:24 P
[2018-12-09 15:35] LABS: C REACTIVE PROTEIN QUANTITATIV 1.96 MG/DL (0.00-0.30); CK-MB VALUE MASS 1.6 NG/ML (<3.6); CPK CREATINE PHOSPHOKINASE 190 U/L (39-308); ETHYL ALCOHOL (ETHANOL) < 0.003 % (0.000-0.010); MB/CK RELATIVE INDEX 0.84 (< OR =4); TROPONIN I < 0.02 NG/ML (< 0.10)
[2018-12-09] MEDS ORDERED: MORPHINE 2 MG/ML 1ML VIAL (J2270) IV PRN (16:00)
[2018-12-09 17:40] LABS: HEMATOCRIT 47.5 % (42.0-52.0); HEMOGLOBIN 15.6 g/dl (13.5-17.5); MEAN CORPUSCULAR HEMOGLOBIN 28.1 pg (27.0-33.0); MEAN CORPUSCULAR HGB CONC 32.8 g/dl (32.0-36.5); MEAN CORPUSCULAR VOLUME 85.6 fl (80.0-96.0); PLATELET COUNT, AUTOMATED 390 10^3/uL (150-450); RED BLOOD COUNT 5.55 10^6/uL (4.30-6.10); WHITE BLOOD COUNT 15.7 10^3/uL (4.0-10.0)
--- NOTE | 2018-12-09 18:14 | REPVR ---
EXAM: CT Right Lower Extremity Without Contrast, Foot EXAM DATE/TIME: 12/09/2018 5:36 PM CLINICAL HISTORY: 63 years old, male; Injury or trauma; Fall; Initial encounter; Blunt trauma; Foot; Right; Additional info: Fracture TECHNIQUE: Imaging protocol: CT of the Right lower extremity without contrast was performed. Exam focused on the foot. Coronal and sagittal reformatted images were created and reviewed. Radiation optimization: All CT scans at this facility use at least one of these dose optimization techniques: automated exposure control; mA and/or kV adjustment per patient size (includes targeted exams where dose is matched to clinical indication); or iterative reconstruction. COMPARISON: CR Foot, Ap, Lat 12/09/2018 2:33 PM FINDINGS: Bones/joints: Fractures of the medial and intermediate cuneiforms. Lateral subluxation of the second through fifth proximal metatarsals relative to the tarsal bones consistent with disruption of Lisfranc joints. Several small fracture fragments demonstrated between the proximal metatarsals and proximal to the base of the fourth metatarsal. Fracture medial aspect of the tarsal navicular bone. Plantar calcaneal spur. Retrocalcaneal insertional enthesophyte. Soft tissues: Diffuse soft tissue edema in the foot and visualized ankle. IMPRESSION: 1. Fractures of the medial and intermediate cuneiforms. Lateral subluxation of the second through fifth proximal metatarsals relative to the tarsal bones consistent with disruption of Lisfranc joints. Fracture medial aspect of the tarsal navicular bone. 2. Diffuse soft tissue edema in the foot and visualized ankle. Electronically signed by: Tin Pak On 12/09/2018 18:13:51 PM
[2018-12-09] MEDS ORDERED: EPIP0.3I2 IM (19:04)
[2018-12-09] MEDS ORDERED: LEVE500T5 PO (19:04)
[2018-12-09] MEDS ORDERED: LAMO100T80 PO (19:04)
[2018-12-09] MEDS ORDERED: NICO14DI24 TD (19:06)
[2018-12-09] MEDS ORDERED: ACETAMINOPHEN TAB 650MG DOSE (2X325MG) PO PRN (20:00)
[2018-12-09] MEDS ORDERED: NICOTINE 14 MG/24 HR TRANSDERMAL TD PRN (20:00)
--- NOTE | 2018-12-09 20:14 | HPEPDOC ---
General Date of Admission 12/09/18 Date of Service: Dec 09, 2018 Attending Physician: QUOC SIMON MD Chief Complaint The patient is a 63-year-old male admitted with a reason for visit of Fall /Rib Pain. Source: Patient Exam Limitations: No limitations, Physical impairment Timing/Duration: Day(s) Severity: Moderate Associated Symptoms: Other (dizziness) History of Present Illness 63 years old white male who uses walker for ambulation, was in usual state of health and then about 2 days ago when he fell and broke his right foot. Patient does not remember the mechanism of fall. He denies loss of consciousness, dizziness before falls are any seizures. Patient at the present time complaining of some dizziness, but otherwise no chest pain, no nausea, vomiting, diarrhea or shortness of breath. Patient is being admitted to medical floor for possible placement and he lives alone and is unable to take care of his daily ADLs Home Medications Scheduled Cephalexin (Keflex) 250 Mg Capsule, 250 MG PO TID, (Reported) STARTED 12/06 X 10 DAY SUPPLY Hydrochlorothiazide (Hydrochlorothiazide) 12.5 Mg Tablet, 12.5 MG PO DAILY, (Reported) Lamotrigine (Lamotrigine) 200 Mg Tab, 200 MG PO BID, (Reported) AM,QHS Lamotrigine (Lamotrigine) 100 Mg Tablet, 100 MG PO QHS, (Reported) TAKE WITH 200MG FOR 300MG QHS Losartan Potassium (Losartan Potassium) 100 Mg Tab, 100 MG PO DAILY, (Reported) Meloxicam (Mobic) 7.5 Mg Tablet, 7.5 MG PO DAILY, (Reported) Metformin HCl (Metformin HCl) 500 Mg Tab, 1,000 MG PO BIDWM, (Reported) Simvastatin (Simvastatin) 20 Mg Tablet, 20 MG PO QHS, (Reported) levETIRAcetam (levETIRAcetam) 500 Mg Tablet, 1,000 MG PO BID, (Reported) Scheduled PRN Epinephrine (Epipen 2-Dinh) 0.3 Mg/0.3 Ml Auto.injct, 1 SYRINGE IM ONCE PRN for ALLERGIC REACTION, (Reported) Nicotine (Nicotine Patch) 14 Mg Patch.td24, 14 MG TD DAILY PRN for SMOKING CESSATION, (Reported) Allergies Coded Allergies: bee pollen (Verified Allergy, Unknown, 12/09/18) Past Medical History Medical History Hypertension, diabetes mellitus, epilepsy Surgical History Hernia repair. He does not remember what kind of hernia are what part of the body Family History Significant Family History: Other Mother with a stroke Social History * Smoker: current smoker Alcohol: Denies Drugs: denies A-FIB/CHADSVASC A-FIB History Current/History of A-Fib/PAF?: No Review of Systems Constitutional: Denies: Chills, Fever, Malaise, Night Sweats, Weakness, Fatigue, Weight Loss, Lethargy, Other Eyes: Denies: Pain, Vision change, Conjunctivae inflammation, Eyelid inflammation, Redness, Other ENT: Denies: Head Aches, Ear Pain, Dysphagia, Sinus Congestion, Post Nasal Drip, Sore Throat, Epistaxis, Other Symptoms Skin: Denies: Rash, Lesions, Jaundice, Bruising, Itching, Dry, Breakdown, Nail Changes, Other Pulmonary: Denies: Dyspnea, Cough, Pleuritic Chest Pain, Other Symptoms Cardiovascular: Denies: Chest Pain, Palpitations, Orthopnea, Paroxysmal Noc. Dyspnea, Edema, Lt Headedness, Other Symptoms Gastrointestinal: Denies: Nausea, Vomiting, Abdominal Pain, Diarrhea, Constipation, Melena, Hematochezia, Other Symptoms Genitourinary: Denies: Dysuria, Frequency, Incontinence, Hematuria, Retention, Other Symptoms Hematologic: Denies: Bruising, Bleeding Excessively, Petecchia, Purpura, Enlarged Lymph Nodes, Other Hematologic Endocrine: Denies: Polydipsia, Polyphagia, Polyuria, Heat Intolerance, Cold Intolerance, Other Endocrine Sx Musculoskeletal: Reports: Other Symptoms (. The right foot pain); Denies: Neck Pain, Back Pain, Shoulder Pain, Arm Pain, Hand Pain, Leg Pain, Foot Pain, Joint Pain, Muscle Pain, Spasms Neurological: Reports: Other Symptoms (, dizziness); Denies: Weakness, Numbness, Incoordination, Change in speech, Confusion, Seizures Psych: Denies: Mood Normal, Anxiety, Depression, Memory Issues, Thoughts of Self Harm, Anger, Thoughts of Harming Other, Other Psych Physical Examination General Exam: Positive: Alert, Cooperative Eye Exam: Positive: PERRLA, Conjunctiva & lids normal ENT Exam: Positive: Atraumatic, Mucous membr. moist/pink Neck Exam: Positive: Supple Chest Exam: Positive: Clear to auscultation, Normal air movement Heart Exam: Positive: Rate Normal, Normal S1, Normal S2 Abdomen Exam: Positive: Normal bowel sounds, Soft Extremity Exam: Positive: Normal pulses Skin Exam: Positive: Nl turgor and temperature Neuro Exam: Positive: Other (. No focal motor or sensory deficit) Psych Exam: Positive: Mental status NL, Mood NL Vital Signs Vital Signs Date Time Temp Pulse Resp B/P (MAP) Pulse Ox O2 Delivery O2 Flow Rate FiO2 12/09/18 19:46 86 16 175/75 (108) 95 Room Air 12/09/18 13:56 98.2 Laboratory Data Labs 24H Laboratory Tests 2 12/09/18 14:23: Nucleated Red Blood Cells % (auto) 0.0, Erythrocyte Sedimentation Rate 22H, Aspartate Amino Transf (AST/SGOT) 17, Alanine Aminotransferase (ALT/SGPT) 15, Alkaline Phosphatase 108, Total Bilirubin 0.2, Direct Bilirubin 0.1, Total Creatine Kinase 190, Creatine Kinase MB 1.6, Creatine Kinase MB Relative Index 0.84, Troponin I < 0.02, C-Reactive Protein, Quantitative 1.96H, Total Protein 6.2L, Albumin 2.6L, Albumin/Globulin Ratio 0.72L, Ethyl Alcohol Level < 0.003 12/09/18 14:40: POC Glucose (Misc Panel) 231H, POC Sodium (Misc Panel) 141, POC Potassium (Misc Panel) 4.2, POC Chloride (Misc Panel) 104, POC Total CO2 (Misc Panel) 24.0, POC Blood Urea Nitrogen (Misc Panel 26, POC Ionized Calcium (Misc Panel) 4.6, POC Creatinine (Misc Panel) 2.5H, POC Hematocrit (Misc Panel) 45.0 CBC/BMP Laboratory Tests 12/09/18 14:23 Red Blood Count 5.55, Mean Corpuscular Volume 85.6, Mean Corpuscular Hemoglobin 28.1, Mean Corpuscular Hemoglobin Concent 32.8, Red Cell Distribution Width 13.4 Problems (1) Fall Status: Acute Problem Text: Etiology unknown but most likely mechanical in nature Patient uses walker at home and will continue using the same Physical therapy evaluation has been called Stable transfer to subacute rehabilitation facility until patient is able to take care of his basic ADLs before his transfer back home (2) Acute renal failure Status: Acute Problem Text: Creatinine is 2.5. Patient is on multiple medications which can increase serum creatinine level such as metformin, NSAIDs, RAFAEL inhibitor Will hold RAFAEL inhibitor and metformin Repeat labs in a.m. Increased creatinine, most likely secondary to chronic medication intake. I do not have the baseline creatinine at the present time (3) Orthostatic hypotension Status: Acute Problem Text: Gentle hydration with normal saline at 70 mL per hour Continue monitoring blood pressure , Most likely causes secondary to patient's antihypertensive meds (4) DM2 (diabetes mellitus, type 2) Status: Chronic Problem Text: Under control Hold Glucophage Metastatic blood sugar every before meals and at bedtime with coverage Myoglobin A1c ordered (5) Hypertension Status: Chronic Problem Text: Hold Rafael inhibitors and diuretics secondary to worsening kidney function Monitored on current medications Had not nephrogenic meds if needed (6) Morbid obesity Status: Chronic Problem Text: Diet and exercise counseling was done (7) Foot fracture, right Problem Text: Dressing done for Dr. Houser in ED Pain management with Tylenol when necessary Follow with podiatry as an outpatient once discharged Plan / VTE VTE Prophylaxis Ordered?: Yes QUOC SIMON MD Dec 09, 2018 20:14
[2018-12-09] MEDS ORDERED: DEXTROSE 50% 50 ML SYRINGE IV PRN (20:15)
[2018-12-09] MEDS ORDERED: GLUCAGON FOR INJ 1 MG VIAL (J1610) SC PRN (20:15)
[2018-12-09] MEDS ORDERED: GLUCOSE 4 GM CHEW TABLET PO PRN (20:15)
[2018-12-09] MEDS: HumaLOG INSULIN (NovoLOG) PER UNIT SC SCH (21:00)
[2018-12-09 21:01] LABS: HEMOGLOBIN A1c 8.9 %
[2018-12-09 21:45] VITALS: BP 188/99
[2018-12-09] MEDS: SIMVASTATIN 20 MG TAB PO SCH (21:57)
[2018-12-09] MEDS: lamoTRIgine 100MG TAB PO SCH (21:57)
[2018-12-09 23:15] VITALS: BP_SYST 158; BP_SYST 162; BP_SYST 184; BP_DIAS 80; BP_DIAS 82; BP_DIAS 90
[2018-12-10] MEDS ORDERED: traMADol 50 MG TAB PO ONE (02:00)
[2018-12-10 06:00] VITALS: BP 162/93
[2018-12-10] MEDS ORDERED: ENOXAPARIN 40 MG/0.4 ML SYRINGE (J1650) SC SCH (06:00)
[2018-12-10 06:01] LABS: HEMATOCRIT 43.8 % (42.0-52.0); HEMOGLOBIN 14.2 g/dl (13.5-17.5); MEAN CORPUSCULAR HEMOGLOBIN 28.1 pg (27.0-33.0); MEAN CORPUSCULAR HGB CONC 32.4 g/dl (32.0-36.5); MEAN CORPUSCULAR VOLUME 86.7 fl (80.0-96.0); PLATELET COUNT, AUTOMATED 318 10^3/uL (150-450); RED BLOOD COUNT 5.05 10^6/uL (4.30-6.10); WHITE BLOOD COUNT 14.1 10^3/uL (4.0-10.0)
[2018-12-10 06:31] LABS: ALBUMIN 2.3 GM/DL (3.2-5.2); ALT/SGPT 11 U/L (12-78); BILIRUBIN,TOTAL 0.3 MG/DL (0.2-1.0); BLOOD UREA NITROGEN 22 MG/DL (7-18); CALCIUM LEVEL 8.2 MG/DL (8.8-10.2); CARBON DIOXIDE LEVEL 26 MEQ/L (21-32); CHLORIDE LEVEL 111 MEQ/L (98-107); CREATININE FOR GFR 2.28 MG/DL (0.70-1.30); GLOMERULAR FILTRATION RATE 31.1 (>49); GLUCOSE, FASTING 148 MG/DL (70-100); POTASSIUM SERUM 3.6 MEQ/L (3.5-5.1); SODIUM LEVEL 142 MEQ/L (136-145); TOTAL PROTEIN 6.6 GM/DL (6.4-8.2)
[2018-12-10] MEDS: lamoTRIgine 100MG TAB PO SCH ×2 (08:51→21:21)
[2018-12-10] MEDS: HumaLOG INSULIN (NovoLOG) PER UNIT SC SCH ×4 (08:52→21:00)
[2018-12-10] MEDS: NS 1,000 ML IV SCH ×2 (08:53→18:54)
[2018-12-10] MEDS ORDERED: PANTOPRAZOLE 40MG INJ (PROTONIX) (C9113) IV SCH (09:00)
[2018-12-10] MEDS ORDERED: MELOXICAM (MOBIC) 7.5 MG TAB PO SCH (09:00)
[2018-12-10 09:03] LABS: BASO # 0.1 10^3/uL (0.0-0.2); BASO % 0.6 % (0.0-1.0); EOS # 0.7 10^3/uL (0.0-0.50); EOS % 4.8 % (0.0-3.0); LYMPH # 2.7 10^3/uL (1.5-4.5); LYMPH % 18.3 % (24.0-44.0); MONO # 1.2 10^3/uL (0.0-0.8); MONO % 8.6 % (0.0-5.0); NEUTROPHILS # 9.7 10^3/uL (1.8-7.7); NEUTROPHILS % 66.9 % (36.0-66.0)
[2018-12-10 10:32] LABS: CK-MB VALUE MASS 1.4 NG/ML (<3.6); CPK CREATINE PHOSPHOKINASE 164 U/L (39-308); MB/CK RELATIVE INDEX 0.85 (< OR =4); TROPONIN I < 0.02 NG/ML (< 0.10)
[2018-12-10] MEDS: PANTOPRAZOLE 40MG TAB (PROTONIX) PO SCH (10:34)
[2018-12-10] MEDS: levETIRAcetam 250MG TABLET (KEPPRA) PO SCH ×2 (10:34→21:21)
[2018-12-10 13:56] VITALS: BP_SYST 157; BP_SYST 158; BP_SYST 159; BP_DIAS 82; BP_DIAS 90; BP_DIAS 91
--- NOTE | 2018-12-10 14:42 | IPNPDOC ---
Subjective Date Seen The patient was seen on 12/10/18. Subjective Chief Complaint/HPI Carlo was seen and examined this morning while lying upright in bed. He states his only pain at this time is along his left flank overlying his ribs; deep inspiration and palpation illicit the greatest pain. He is complaining of dyspnea with accompanying nonproductive cough. Pertaining to his epilepsy, patient states he has not had a seizure in a while. Patient is eating and drinking without any issues. States that he ambulates to bathroom with the assistance of his walker and nursing staff for urination. He has not had a bowel movement since admission. General: Denies: Chills, Night Sweats Constitutional: Reports: Fever, Other (lightheaded) ENT: Reports: Head Aches; Denies: Dysphagia Pulmonary: Reports: Dyspnea, Cough (, nonproductive) Cardiovascular: Denies: Chest Pain, Palpitations Gastrointestinal: Denies: Nausea, Vomiting, Abdominal Pain Genitourinary: Denies: Dysuria Musculoskeletal: Reports: Other Symptoms (left flank/rib pain); Denies: Neck Pain, Back Pain Neurological: Denies: Weakness, Numbness Objective Physical Examination General Exam: Positive: Alert, Cooperative Eye Exam: Positive: PERRLA, Conjunctiva & lids normal, EOMI; Negative: Sclera icteric ENT Exam: Positive: Atraumatic, Mucous membr. moist/pink, Tongue Midline Neck Exam: Positive: Supple; Negative: thyromegaly Chest Exam: Positive: Rales (crackles right lower lung base), Wheezing (end expiratory wheeze), Diminished (due to inability to fully set up an body habitus) Heart Exam: Positive: Rate Normal, Normal S1, Normal S2; Negative: Gallops, Rubs Abdomen Exam: Positive: Normal bowel sounds, Soft Extremity Exam: Positive: Edema (pitting, bilateral lower extremities), Normal pulses (2+ radial pulses bilaterally and 2+ left posterior tibial pulse), Other (splint on right distal lower extremity moving to foot) Skin Exam: Positive: Nl turgor and temperature, Other skin issue (Toenail onychomycosis both feet) Neuro Exam: Positive: Strength at 5/5 X4 ext, Cranial Nerves 3-12 NL, Other (. No focal motor or sensory deficit); Negative: Sensation Intact (No sensation to fine touch on plantar surface of feet) Psych Exam: Positive: Mental status NL, Mood NL, Oriented x 3 Assessment /Plan Problems (1) Fall Status: Acute Problem Text: -Etiology unknown but most likely mechanical in nature. Fall occurred at home on Thursday, 12/06 onto linoleum surface. Patient was down on ground for 3 hours. -Patient had extensive imaging done which had only remarkable findings of right foot fracture -Patient on fall risk precautions while in hospital -Patient has positive orthostatics -Patient ambulates with a walker at home and will continue using the same -Physical therapy evaluation ordered -Patient receiving 5000 units heparin -Stable transfer to subacute rehabilitation facility until patient is able to take care of his basic ADLs before his transfer back home (2) Acute renal failure Status: Acute Problem Text: -Likely secondary to poor oral intake, home medications, and deconditioning. Prior to admission, patient had not had fluids in a few days and remained on the floor for 3 hours post fall. -Patient's creatinine this morning was elevated over 2 times his baseline -Current GFR significantly decreased from baseline (which is usually greater than 60%) -We will encourage patient to increase PO intake and continue IV fluids -Patient is on multiple medications which can increase serum creatinine level such as metformin, NSAIDs, RAFAEL inhibitor -We will hold RAFAEL inhibitor and metformin and all other nephrotoxic drugs -Continue to monitor on repeat CMP (3) Orthostatic hypotension Status: Acute Problem Text: -Patient receiving IV fluids -Patient on fall risk precautions -Continue monitoring blood pressure -Possibly secondary to patient's anti-hypertensive medications (4) DM2 (diabetes mellitus, type 2) Status: Chronic Problem Text: -Elevated A1c, fasting and vcdrd-il-odut serum glucose all elevated -Patient on sliding scale insulin -diabetic neuropathy present of feet, bilaterally. -Patient was to have appointment on 12/06 as outpatient with podiatry. Patient should still follow-up with podiatry upon discharge. -Patient is encouraged to increase PO intake (5) Hypertension Status: Chronic Problem Text: -c/w telemetry -Hold Rafael inhibitors and diuretics secondary to worsening kidney function -Continue to monitor on current medications -Hold nephrogenic meds if needed (6) Morbid obesity Status: Chronic Problem Text: -BMI 37.7 -Diet and exercise counseling was done (7) Foot fracture, right Problem Text: -. Extremities CT and foot x-rays show probable right foot Lisfranc fracture of medial cuneiform and tarsal bones -Splint dressing done for Dr. Houser in ED on 12/09 -PRN Tylenol for pain -Hospitalist team spoke with orthopedics regarding patient. Outpatient follow-up is warranted at this time. Patient should make appointment with [facility] orthopedics. Patient is to remain non-weightbearing and to elevate right lower extremity in the meantime. -Patient was to have appointment on 12/06 as outpatient with podiatry. Patient should still follow-up with podiatry upon discharge. Plan/VTE VTE Prophylaxis Ordered?: Yes Disposition I saw and evaluated the patient. I agree with the findings and plan of care as documented in the above note VS, I&O, 24H, Fishbone Vital Signs/I&O Vital Signs Date Time Temp Pulse Resp B/P (MAP) Pulse Ox O2 Delivery O2 Flow Rate FiO2 12/10/18 06:00 97.3 91 20 162/93 (116) 95 12/09/18 21:15 Room Air I&O- Last 24 Hours up to 6 AM 12/10/18 06:00 Intake Total 2300 ml Output Total 0 ml Balance 2300 ml Laboratory Data 24H LABS Laboratory Tests 2 12/09/18 14:23: Nucleated Red Blood Cells % (auto) 0.0, Erythrocyte Sedimentation Rate 22H, Estimated Mean Plasma Glucose 209H, Hemoglobin A1c 8.9, Aspartate Amino Transf (AST/SGOT) 17, Alanine Aminotransferase (ALT/SGPT) 15, Alkaline Phosphatase 108, Total Bilirubin 0.2, Direct Bilirubin 0.1, Total Creatine Kinase 190, Creatine Kinase MB 1.6, Creatine Kinase MB Relative Index 0.84, Troponin I < 0.02, C- Reactive Protein, Quantitative 1.96H, Total Protein 6.2L, Albumin 2.6L, Albumin/Globulin Ratio 0.72L, Ethyl Alcohol Level < 0.003 12/09/18 14:40: POC Glucose (Misc Panel) 231H, POC Sodium (Misc Panel) 141, POC Potassium (Misc Panel) 4.2, POC Chloride (Misc Panel) 104, POC Total CO2 (Misc Panel) 24.0, POC Blood Urea Nitrogen (Misc Panel 26, POC Ionized Calcium (Misc Panel) 4.6, POC Creatinine (Misc Panel) 2.5H, POC Hematocrit (Misc Panel) 45.0 12/09/18 21:49: Bedside Glucose (Misc Panel) 127H 12/10/18 05:37: Nucleated Red Blood Cells % (auto) 0.0, Aspartate Amino Transf (AST/SGOT) 11, Alanine Aminotransferase (ALT/SGPT) 11L, Alkaline Phosphatase 98, Total Bilirubin 0.3, Total Creatine Kinase 164, Creatine Kinase MB 1.4, Creatine Kinase MB Relative Index 0.85, Troponin I < 0.02, Total Protein 6.6, Albumin 2.3L, Albumin/Globulin Ratio 0.53L, Immature Granulocyte % (Auto) 0.8, Neutroph ils (%) (Auto) 66.9H, Lymphocytes (%) (Auto) 18.3L, Monocytes (%) (Auto) 8.6H, Eosinophils (%) (Auto) 4.8H, Basophils (%) (Auto) 0.6, Immature Granulocyte # (Auto) 0.1H, Neutrophils # (Auto) 9.7H, Lymphocytes # (Auto) 2.7, Monocytes # (Auto) 1.2H, Eosinophils # (Auto) 0.7H, Basophils # (Auto) 0.1, Platelet Estimate , Anion Gap 5L, Glomerular Filtration Rate 31.1L, Blood Urea Nitrogen 22H, Creatinine 2.28H, Sodium Level 142, Potassium Level 3.6, Chloride Level 111H, Carbon Dioxide Level 26, Calcium Level 8.2L, Magnesium Level 2.0 12/10/18 11:22: Bedside Glucose (Misc Panel) 155H CBC/BMP Laboratory Tests 12/09/18 14:23 Red Blood Count 5.55, Mean Corpuscular Volume 85.6, Mean Corpuscular Hemoglobin 28.1, Mean Corpuscular Hemoglobin Concent 32.8, Red Cell Distribution Width 13.4 12/10/18 05:37 Red Blood Count 5.05, Mean Corpuscular Volume 86.7, Mean Corpuscular Hemoglobin 28.1, Mean Corpuscular Hemoglobin Concent 32.4, Red Cell Distribution Width 13.4, Calcium Level 8.2 L, Aspartate Amino Transf (AST/SGOT) 11, Alanine Amino transferase (ALT/SGPT) 11 L, Total Creatine Kinase 164, Alkaline Phosphatase 98, Total Bilirubin 0.3, Total Protein 6.6, Albumin 2.3 L DUC MARTÍNEZ PGY-1 Dec 10, 2018 13:08 ANA DOWNEY MD Dec 11, 2018 17:48
[2018-12-10 18:09] LABS: AMORPHOUS SEDIMENT SMALL (NEGATIVE); APPEARANCE, URINE CLOUDY (CLEAR); BACTERIA, URINE AUTO NEGATIVE (NEGATIVE); BILIRUBIN, URINE AUTO NEGATIVE (NEGATIVE); BLOOD, URINE BLOOD 1+ (NEGATIVE); COLOR, URINE YELLOW (YELLOW); GLUCOSE, URINE (UA) AUTO 2+ mg/dL (NEGATIVE); KETONE, URINE AUTO TRACE mg/dL (NEGATIVE); LEUKOCYTE ESTERASE, URINE AUTO NEGATIVE (NEGATIVE); MUCUS, URINE SMALL (NEGATIVE); NITRITE, URINE AUTO NEGATIVE (NEGATIVE); PROTEIN, URINE AUTO 3+ mg/dL (NEGATIVE); RBC, URINE AUTO 2 /HPF (0-3); SPECIFIC GRAVITY URINE AUTO 1.026 (1.002-1.035); SQUAMOUS EPITHELIAL CELL UR AU 1 /HPF (0-6); UROBILINOGEN, URINE AUTO 0.2 mg/dL (0.0-2.0); WBC, URINE AUTO 2 /HPF (0-3)
[2018-12-10] MEDS: traMADol 50 MG TAB PO PRN (21:23)
[2018-12-10] MEDS: SIMVASTATIN 20 MG TAB PO SCH (21:23)
[2018-12-10 22:00] VITALS: BP 168/82
[2018-12-11 01:35] VITALS: BP 204/104
[2018-12-11 01:50] VITALS: BP 204/104
[2018-12-11] MEDS ORDERED: amLODIPine 10 MG TAB PO ONE (02:00)
[2018-12-11] MEDS ORDERED: cloNIDine 0.1 MG TAB PO ONE (04:30)
[2018-12-11 06:00] VITALS: BP 151/87
[2018-12-11 06:40] LABS: HEMATOCRIT 41.8 % (42.0-52.0); HEMOGLOBIN 13.4 g/dl (13.5-17.5); MEAN CORPUSCULAR HEMOGLOBIN 27.2 pg (27.0-33.0); MEAN CORPUSCULAR HGB CONC 32.1 g/dl (32.0-36.5); MEAN CORPUSCULAR VOLUME 84.8 fl (80.0-96.0); PLATELET COUNT, AUTOMATED 313 10^3/uL (150-450); RED BLOOD COUNT 4.93 10^6/uL (4.30-6.10); WHITE BLOOD COUNT 14.1 10^3/uL (4.0-10.0)
[2018-12-11 06:58] LABS: CALCIUM LEVEL 8.4 MG/DL (8.8-10.2); CREATININE FOR GFR 1.77 MG/DL (0.70-1.30); GLOMERULAR FILTRATION RATE 41.7 (>49); POTASSIUM SERUM 3.8 MEQ/L (3.5-5.1)
[2018-12-11] MEDS: lamoTRIgine 100MG TAB PO SCH ×2 (08:20→20:35)
[2018-12-11] MEDS: HumaLOG INSULIN (NovoLOG) PER UNIT SC SCH ×4 (08:20→20:27)
[2018-12-11] MEDS: levETIRAcetam 250MG TABLET (KEPPRA) PO SCH ×2 (08:21→20:37)
[2018-12-11] MEDS: PANTOPRAZOLE 40MG TAB (PROTONIX) PO SCH (08:21)
[2018-12-11] MEDS: HEPARIN SOD (PORCINE) 5000 UNITS/ML VIAL SQ SCH ×2 (08:21→20:38)
[2018-12-11] MEDS ORDERED: LOSARTAN 50 MG TAB PO SCH (09:00)
[2018-12-11] MEDS ORDERED: hydroCHLOROthiazide 12.5 MG CAPSULE PO SCH (09:00)
[2018-12-11] MEDS: METOPROLOL TART 25 MG TABLET PO SCH ×2 (09:51→20:40)
[2018-12-11 14:00] VITALS: BP 140/60
--- NOTE | 2018-12-11 18:26 | IPNPDOC ---
Subjective Date Seen The patient was seen on 12/11/18. Subjective Chief Complaint/HPI Carlo was seen and examined this morning while sitting comfortably upright in a chair. He was straight cathed last night, but is now allowed to ambulate out of bed with assistance.. He is aware of the importance to keep heavy weight off of his fractured right foot. His blood pressure peaked overnight reaching greater than 200 systolic and in the 190s systolic. He was given onetime 0.1 mg clonidine PO and amlodipine 10 mg PO. His blood pressure is now in the 150s and he is currently receiving 25 mg PO bid of Lopressor. General: Reports: Chills (Patient states he had chills overnight); Denies: Night Sweats Constitutional: Denies: Fever ENT: Denies: Head Aches Pulmonary: Denies: Dyspnea, Cough Cardiovascular: Denies: Chest Pain, Palpitations Gastrointestinal: Denies: Nausea, Vomiting, Abdominal Pain Genitourinary: Denies: Dysuria Musculoskeletal: Reports: Other Symptoms (Left flank/rib pain) Neurological: Denies: Weakness, Numbness Objective Physical Examination General Exam: Positive: Alert (Patient is significantly more alert, lucid, and articulate today versus yesterday), Cooperative Eye Exam: Positive: PERRLA, Conjunctiva & lids normal, EOMI; Negative: Sclera icteric ENT Exam: Positive: Atraumatic, Mucous membr. moist/pink, Tongue Midline Neck Exam: Positive: Supple; Negative: thyromegaly Chest Exam: Positive: Clear to auscultation; Negative: Rales, Rhonchi Heart Exam: Positive: Rate Normal, Normal S1, Normal S2; Negative: Gallops, Rubs Abdomen Exam: Positive: Normal bowel sounds, Soft; Negative: Tenderness Extremity Exam: Positive: Edema (pitting edema, bilateral lower extremities), Normal pulses (2+ radial pulses bilaterally and 2+ left posterior tibial pulse), Other (splint on right distal lower extremity moving to foot) Skin Exam: Positive: Nl turgor and temperature, Other skin issue (Toenail onychomycosis both feet) Neuro Exam: Positive: Strength at 5/5 X4 ext, Cranial Nerves 3-12 NL, Other (No focal motor or sensory deficit); Negative: Sensation Intact (sensation to light touch on plantar side of feet (bilaterally) is moderately improved today versus yesterday) Psych Exam: Positive: Mental status NL, Mood NL, Oriented x 3 Assessment /Plan Problems (1) Fall Status: Acute Problem Text: -Fall occurred at home on Thursday, 12/06 onto linoleum surface. Patient was down on the ground for 3 hours. Patient's was likely mechanical and due to vertigo. Patient was seen by physical therapy and Kendall maneuver was negative. -Patient had extensive imaging done with only remarkable finding being right foot fracture -Patient on fall risk precautions while in hospital. Patient is currently on out of bed with assistance orders. Patient usually ambulates with walker when at home. -Patient has positive orthostatics -c/w 5000 units heparin q12h sc -Patient had elevated CRP and ESR on day of admission (12/09) (2) Acute renal failure Status: Acute Problem Text: -Likely secondary to poor oral intake, home medications, and deconditioning. Prior to admission, patient had not had fluids in a few days and remained on the floor for 3 hours post mechanical fall on 12/06. -Patient's creatinine, while still abnormally elevated, decreased by over 0.5 today versus yesterday from 2.28 to 1.77 -Current GFR improved over 10% from yesterday but still decreased from patient's baseline (which is usually greater than 60%) -We will encourage patient to increase PO intake and he is now off IVF -Patient is on multiple medications which can increase serum creatinine level such as metformin, NSAIDs, RAFAEL inhibitor -Continue to hold patient's RAFAEL inhibitor and metformin and all other nephrotoxic drugs -Continue to monitor on repeat CMP (3) Orthostatic hypotension Status: Acute Problem Text: -Patient on fall risk precautions and orders for out of bed with assistance only. -Positive orthostats possibly secondary to patient's anti-hypertensive medications. Patient was examined by PT and likely cause of his 12/06 mechanical fall leading to be vertigo. Kendall maneuver testing was negative. -Patient's blood pressure peaked twice into the high 190s and low 200s overnight. He was given one-time doses of clonidine and Norvasc. His blood pressure soon returned to previous levels and he currently in the 150s. He is now receiving 25 mg, Lopressor bid po. We will continue monitoring blood pressure -Possibly secondary to patient's anti-hypertensive medications (4) DM2 (diabetes mellitus, type 2) Status: Chronic Problem Text: -A1c, fasting and [id number] serum glucose all elevated on 12/10. His fasting glucose decreased marginally from yesterday to today -c/w sliding scale insulin -Patient was to have appointment on 12/06 as outpatient with podiatry. Patient should still follow-up with podiatry upon discharge. -Patient is encouraged to increase PO intake (5) Hypertension Status: Chronic Problem Text: -Patient's blood pressure peaked twice into the high 190s and low 200s overnight. He was given one-time doses of clonidine and Norvasc. His blood pressure soon returned to previous levels and he currently in the 150s. He is now receiving 25 mg, Lopressor bid po. -c/w telemetry -Continue to Rafael inhibitors and diuretics secondary to worsening kidney function -Continue to monitor on current medications -Hold nephrogenic meds if needed (6) Morbid obesity Status: Chronic Problem Text: -BMI 37.7 -Continue with sliding scale insulin. Patient off IV fluids, but still encouraged increased by mouth intake -Diet and exercise counseling was done (7) Foot fracture, right Problem Text: -Extremities CT and foot x-rays show probable right foot Lisfranc fracture of medial cuneiform and tarsal bones -Splint dressing done for Dr. Houser in ED on 12/09 -PRN Tylenol for pain -Hospitalist team spoke with orthopedics regarding patient. Outpatient follow-up is warranted at this time. Patient should make appointment with [facility] orthopedics. Patient is to remain non-weightbearing and to elevate right lower extremity in the meantime. Today (12/11). Sees patient stated that since orthopedics chose not to see him as inpatient, he will not set up an outpatient appointment. -Patient was to have appointment on 12/06 as outpatient with podiatry. Patient should still follow-up with podiatry upon discharge. Plan/VTE VTE Prophylaxis Ordered?: Yes Plan I saw and evaluated the patient. I agree with the findings and plan of care as documented in the above note VS, I&O, 24H, Fishbone Vital Signs/I&O Vital Signs Date Time Temp Pulse Resp B/P (MAP) Pulse Ox O2 Delivery O2 Flow Rate FiO2 12/11/18 14:00 96.8 68 17 140/60 (86) 96 12/10/18 11:00 Room Air I&O- Last 24 Hours up to 6 AM 12/11/18 06:00 Intake Total 1460 ml Output Total 925 ml Balance 535 ml Laboratory Data 24H LABS Laboratory Tests 2 12/10/18 17:44: Urine Appearance CLOUDYH, Urine Color YELLOW, Urine pH 5.0, Urine Specific [place] 1.026, Urine Protein 3+H, Urine Glucose (UA) 2+H, Urine Ketones TRACEH, Urine Urobilinogen 0.2, Urine Bilirubin NEGATIVE, Urine Leukocyte Esterase NEGATIVE, Urine Blood 1+H, Urine Nitrite NEGATIVE, Urine WBC (Auto) 2, Urine RBC (Auto) 2, Urine Hyaline Casts (Auto) 1, Urine Bacteria (Auto) NEGATIVE, Urine Squamous Epithelial Cells 1, Urine Amorphous Sediment SMALLH, Urine Mucus (Auto) SMALL, Urine Sperm (Auto) 12/10/18 20:21: Bedside Glucose (Misc Panel) 129H 12/11/18 06:19: Nucleated Red Blood Cells % (auto) 0.0, Anion Gap 4L, Glomerular Filtration Rate 41.7L, Blood Urea Nitrogen 22H, Creatinine 1.77H, Sodium Level 140, Potassium Level 3.8, Chloride Level 111H, Carbon Dioxide Level 25, Calcium Level 8.4L 12/11/18 11:33: Bedside Glucose (Misc Panel) 214H 12/11/18 16:51: Bedside Glucose (Misc Panel) 159H CBC/BMP Laboratory Tests 12/11/18 06:19 Red Blood Count 4.93, Mean Corpuscular Volume 84.8, Mean Corpuscular Hemoglobin 27.2, Mean Corpuscular Hemoglobin Concent 32.1, Red Cell Distribution Width 13.2, Calcium Level 8.4 L DUC MARTÍNEZ PGY-1 Dec 11, 2018 18:26 ANA DOWNEY MD Dec 13, 2018 16:37
[2018-12-11] MEDS: traMADol 50 MG TAB PO PRN (20:38)
[2018-12-11] MEDS: SIMVASTATIN 20 MG TAB PO SCH (20:39)
[2018-12-11 22:00] VITALS: BP 178/84
[2018-12-11 23:13] VITALS: BP_SYST 146; BP_SYST 156; BP_DIAS 84; BP_DIAS 88
[2018-12-12 06:00] VITALS: BP 179/91
[2018-12-12 06:31] LABS: HEMATOCRIT 42.5 % (42.0-52.0); HEMOGLOBIN 13.7 g/dl (13.5-17.5); MEAN CORPUSCULAR HEMOGLOBIN 27.4 pg (27.0-33.0); MEAN CORPUSCULAR HGB CONC 32.2 g/dl (32.0-36.5); PLATELET COUNT, AUTOMATED 354 10^3/uL (150-450); WHITE BLOOD COUNT 13.3 10^3/uL (4.0-10.0)
[2018-12-12 07:00] LABS: CALCIUM LEVEL 8.9 MG/DL (8.8-10.2); CREATININE FOR GFR 2.05 MG/DL (0.70-1.30); GLOMERULAR FILTRATION RATE 35.2 (>49); POTASSIUM SERUM 4.5 MEQ/L (3.5-5.1)
[2018-12-12] MEDS: levETIRAcetam 250MG TABLET (KEPPRA) PO SCH ×2 (08:38→21:14)
[2018-12-12] MEDS: HumaLOG INSULIN (NovoLOG) PER UNIT SC SCH ×4 (08:38→20:59)
[2018-12-12] MEDS: lamoTRIgine 100MG TAB PO SCH ×2 (08:39→21:15)
[2018-12-12] MEDS: PANTOPRAZOLE 40MG TAB (PROTONIX) PO SCH (08:39)
[2018-12-12] MEDS: HEPARIN SOD (PORCINE) 5000 UNITS/ML VIAL SQ SCH ×2 (08:39→21:16)
[2018-12-12] MEDS: METOPROLOL TART 25 MG TABLET PO SCH ×2 (08:39→21:16)
[2018-12-12] MEDS ORDERED: ONDANSETRON 4MG/2ML VIAL (J2405) IV SCH (11:00)
[2018-12-12 14:00] VITALS: BP 160/80
--- NOTE | 2018-12-12 14:13 | IPNPDOC ---
Date Seen The patient was seen on 12/12/18. Progress Note SUBJECTIVE: Patient tells me that he has minimal pain in his right foot he tells me that his vertigo symptoms of completely resolve any longer feels dizzy when standing up to use the commode otherwise patient denies chest pain, shortness breath, nausea, vomiting, fevers, chills OBJECTIVE PHYSICAL EXAMINATION: VITAL SIGNS: Please see below. GENERAL: Pleasant elderly man sitting up in bed awake alert oriented speaking in complete sentences no acute distress HEENT: Moist mucous membranes no elevation in CVP CARDIOVASCULAR: S1 S2 regular no additional heart sounds appreciated. RESPIRATORY: Clear to auscultation bilaterally. ABDOMINAL: Bowel sounds present abdomen soft and nontender, obese EXTREMITIES: No clubbing cyanosis or edema, his right lower extremity is in a soft cast NEUROLOGICAL: Spontaneously moves all 4 extremities, decreased in the right lower extremity secondary to a soft cast, cranial 2 through 12 grossly intact no gross focal deficits appreciated PSYCHOLOGICAL: Appropriate LABORATORY DATA, MICROBIOLOGY: Please see below. IMAGING STUDIES: Head CT:Essentially unremarkable CT examination of the brain. Chest CT:Stable CT findings. There is adenopathy as described above. There is cholelithiasis. There is a partially imaged right renal cyst. There is benign bilateral adrenal gland thickening. Cervical spine CT:Chronic changes, as described above. Foot x-ray:Probable Lisfranc fracture Ankle x-rays:Probable circumferential soft tissue edema. This should be confirmed clinically. Otherwise, essentially negative right ankle. CT extremity:1. Fractures of the medial and intermediate cuneiforms. Lateral subluxation of the second through fifth proximal metatarsals relative to the tarsal bones consistent with disruption of Lisfranc joints. Fracture medial aspect of the tarsal navicular bone. 2. Diffuse soft tissue edema in the foot and visualized ankle. She only uses them only ASSESSMENT AND PLAN: This is a 63-year-old man with right foot fracture secondary to a fall related to orthostasis. PROBLEMS: 1. Fall: Patient presented with symptoms of vertigo and describes orthostasis upon standing. He did receive IV fluid resuscitation at this time his symptoms have resolved PT did work with him and attempted vestibular maneuvers which were negative. His nystagmus has resolved on previous days he did have a left left nystagmus that to distinguish with significant time. At this time he has a right foot fracture orthopedic surgery and been notified about it. Recommended outpatient follow-up only in soft cast as well as pain control. I'll have him work with PT OT I place an ARU screen 2. Orthostasis: Possibly secondary to dehydration had been taking poor and prior to his hospitalization. We'll monitor his blood pressure and medications closely checking orthostatics before titrating up. His symptoms appear to have been abated. 3. Urinary retention: Patient has not had a bowel movement in 3 days he has been in bed he had difficulty using a bedpan and this having great difficulty getting to the commode. I'll provide with a bowel regimen finasteride after having a bowel regimen and a bowel movement could consider voiding trial with the next 24-48 hours. 4. Diabetes mellitus: Fingersticks controlled. 5. Hypertension: As above 6. Morbid obesity:, Dictating care 7. Gastroesophageal reflux disease: Continue with pantoprazole 8. Seizure disorder: Continue with Keppra problem rectal 9. Dyslipidemia: Continue his Zocor 10. Nicotine dependence: Continue his NicoDerm cessation counseling provided DVT prophylaxis: Heparin DISPOSITION: I suspect rehabilitation. VS, I&O, 24H, [facility] Vital Signs/I&O Vital Signs Date Time Temp Pulse Resp B/P (MAP) Pulse Ox O2 Delivery O2 Flow Rate FiO2 12/12/18 08:39 67 179/91 12/12/18 06:00 97.1 18 97 12/10/18 11:00 Room Air I&O- Last 24 Hours up to 6 AM 12/12/18 06:00 Intake Total 700 ml Output Total 500 ml Balance 200 ml Laboratory Data 24H LABS Laboratory Tests 2 12/11/18 16:51: Bedside Glucose (Misc Panel) 159H 12/11/18 20:24: Bedside Glucose (Misc Panel) 201H 12/12/18 06:06: Nucleated Red Blood Cells % (auto) 0.0, Anion Gap 6L, Glomerular Filtration Rate 35.2L, Blood Urea Nitrogen 25H, Creatinine 2.05H, Sodium Level 142, Potassium Level 4.5, Chloride Level 110H, Carbon Dioxide Level 26, Calcium Level 8.9 12/12/18 11:33: Bedside Glucose (Misc Panel) 197H CBC/BMP Laboratory Tests 12/12/18 06:06 Red Blood Count 5.00, Mean Corpuscular Volume 85.0, Mean Corpuscular Hemoglobin 27.4, Mean Corpuscular Hemoglobin Concent 32.2, Red Cell Distribution Width 13.3, Calcium Level 8.9 ANA DOWNEY MD Dec 12, 2018 14:13
[2018-12-12] MEDS ORDERED: zolPIDEM TARTRATE 5 MG TAB PO PRN (14:30)
[2018-12-12] MEDS: SENOKOT S TAB PO PRN (17:08)
[2018-12-12] MEDS: MOM 30ML SUSPENSION UDC PO PRN (17:08)
[2018-12-12 21:13] VITALS: BP 190/90
[2018-12-12] MEDS: SIMVASTATIN 20 MG TAB PO SCH (21:15)
[2018-12-12] MEDS: FINASTERIDE 5 MG TAB PO SCH (21:15)
[2018-12-12 22:00] VITALS: BP 144/74
[2018-12-12 22:15] VITALS: BP 156/72
[2018-12-13 05:39] VITALS: BP_SYST 158; BP_SYST 194; BP_SYST 198; BP_DIAS 92; BP_DIAS 94; BP_DIAS 97
[2018-12-13 07:38] LABS: HEMOGLOBIN 14.4 g/dl (13.5-17.5); MEAN CORPUSCULAR HEMOGLOBIN 27.6 pg (27.0-33.0); MEAN CORPUSCULAR VOLUME 86.2 fl (80.0-96.0); PLATELET COUNT, AUTOMATED 386 10^3/uL (150-450); RED BLOOD COUNT 5.22 10^6/uL (4.30-6.10); WHITE BLOOD COUNT 11.4 10^3/uL (4.0-10.0)
[2018-12-13 07:58] LABS: CALCIUM LEVEL 9.1 MG/DL (8.8-10.2); CREATININE FOR GFR 1.97 MG/DL (0.70-1.30); GLOMERULAR FILTRATION RATE 36.9 (>49); POTASSIUM SERUM 4.4 MEQ/L (3.5-5.1)
[2018-12-13] MEDS: HEPARIN SOD (PORCINE) 5000 UNITS/ML VIAL SQ SCH ×2 (08:11→20:34)
[2018-12-13] MEDS: PANTOPRAZOLE 40MG TAB (PROTONIX) PO SCH (08:11)
[2018-12-13] MEDS: HumaLOG INSULIN (NovoLOG) PER UNIT SC SCH ×4 (08:11→20:32)
[2018-12-13] MEDS: levETIRAcetam 250MG TABLET (KEPPRA) PO SCH ×2 (08:12→20:33)
[2018-12-13] MEDS: lamoTRIgine 100MG TAB PO SCH ×2 (08:12→20:33)
[2018-12-13] MEDS: METOPROLOL TART 25 MG TABLET PO SCH ×2 (08:14→20:34)
[2018-12-13 14:00] VITALS: BP 178/90
[2018-12-13 15:57] VITALS: BP_SYST 158; BP_SYST 160; BP_SYST 178; BP_DIAS 80; BP_DIAS 90; BP_DIAS 97
--- NOTE | 2018-12-13 16:13 | IPNPDOC ---
Date Seen The patient was seen on 12/13/18. Progress Note SUBJECTIVE: Patient is a 63-year-old male sitting up in chair answering questions. States that he has minimal pain in his right foot is tolerable with current pain regimen. He states he does feel a little lightheaded when he stands up but it resolves and he sits down. His blood pressure has been slightly elevated with systolic in the 180s -190s. His home losartan have been held due to his XAVI. Is tolerating his meals well and continues to work PT and OT. He has no other complaints at this time no other overnight events reported. OBJECTIVE: PHYSICAL EXAMINATION: VITAL SIGNS: Please see below. GENERAL: 63-year-old pleasant male sitting up in his chair, no acute distress and answering questions. HEENT: Atraumatic normocephalic pupils are equal round and reactive moist mucous membranes with no JVD noted CARDIOVASCULAR: S1-S2 sounds present no audible murmurs rubs or gallops noted. RESPIRATORY: Clear to auscultate bilaterally no audible wheezing rhonchi or rales noted. ABDOMINAL: Morbidly obese abdomen soft nontender with positive bowel sounds in all 4 quadrants EXTREMITIES: No lower extremity edema. soft cast noted in his right lower extremity. LABORATORY DATA, IMAGING STUDIES, MICROBIOLOGY: Please see below. Head CT: Essentially unremarkable CT examination of the brain. Chest CT: Stable CT findings. There is adenopathy as described above. There is cholelithiasis. There is a partially imaged right renal cyst. There is benign bilateral adrenal gland thickening. Cervical spine CT: Chronic changes, as described above. Foot x-ray: Probable Lisfranc fracture Ankle x-rays: Probable circumferential soft tissue edema. This should be confirmed clinically. Otherwise, essentially negative right ankle. CT extremity: 1. Fractures of the medial and intermediate cuneiforms. Lateral subluxation of the second through fifth proximal metatarsals relative to the tarsal bones consistent with disruption of Lisfranc joints. Fracture medial aspect of the tarsal navicular bone. 2. Diffuse soft tissue edema in the foot and visualized ankle. She only uses them only DVT prophylaxis ordered?: Yes Heparin ASSESSMENT AND PLAN: This is a 63-year-old male with right foot fracture secondary to fall related to orthostasis. PROBLEMS: Fall possibly secondary to syncope/ Orthostasis - presented with symptoms of vertigo and describes orthostasis upon standing - PT attempted vestibular maneuvers but were negative - monitor his blood pressure and medications -will obtain EKG. Hypertension -c/w metoprolol 25 mg PO BID -HOLD home losartan 100mg daily because of XAVI. -START amlodipine 10MG DAILY. -continue to monitor orthostats Acute kidney injury -Possibly secondary to urinary retention -continue to hold nephrotoxin drugs -Discontinue Ballard and do voiding trial today -continue to monitor. Right foot fracture -orthopedic surgery consulted: follow-up only in soft cast -pain control- Ultram -continue to work with PT and OT, non-weight bearing on right foot Diabetes mellitus -c/w ISS -HOLD home metformin because of XAVI Morbid obesity -Complicates care Gastroesophageal reflux disease c/w pantoprazole Seizure disorder: -c/w with home Keppra, lamictal Dyslipidemia c/w Zocor Nicotine dependence c/w NicoDerm cessation counseling provided DVT ppx: Heparin I saw and evaluated the patient. I agree with the findings and plan of care as documented in the above note VS, I&O, 24H, Fishbone Vital Signs/I&O Vital Signs Date Time Temp Pulse Resp B/P (MAP) Pulse Ox O2 Delivery O2 Flow Rate FiO2 12/13/18 08:14 74 189/95 12/13/18 06:00 97.6 19 98 12/10/18 11:00 Room Air I&O- Last 24 Hours up to 6 AM 12/13/18 05:59 Intake Total 1620 ml Output Total 2525 ml Balance -905 ml Laboratory Data 24H LABS Laboratory Tests 2 12/12/18 16:39: Bedside Glucose (Misc Panel) 139H 12/12/18 20:53: Bedside Glucose (Misc Panel) 161H 12/13/18 07:02: Nucleated Red Blood Cells % (auto) 0.0, Anion Gap 7L, Glomerular Filtration Rate 36.9L, Blood Urea Nitrogen 23H, Creatinine 1.97H, Sodium Level 142, Potassium Level 4.4, Chloride Level 107, Carbon Dioxide Level 28, Calcium Level 9.1 12/13/18 11:32: Bedside Glucose (Misc Panel) 193H CBC/BMP Laboratory Tests 12/13/18 07:02 Red Blood Count 5.22, Mean Corpuscular Volume 86.2, Mean Corpuscular Hemoglobin 27.6, Mean Corpuscular Hemoglobin Concent 32.0, Red Cell Distribution Width 13.2, Calcium Level 9.1 PB SOUZA DO Dec 13, 2018 16:13 ANA DOWNEY MD Dec 24, 2018 11:54
[2018-12-13] MEDS: amLODIPine 10 MG TAB PO SCH (16:15)
[2018-12-13 18:00] VITALS: BP 140/70
[2018-12-13] MEDS: FINASTERIDE 5 MG TAB PO SCH (20:33)
[2018-12-13] MEDS: SIMVASTATIN 20 MG TAB PO SCH (20:33)
[2018-12-13 22:00] VITALS: BP 192/96
[2018-12-13 23:55] VITALS: BP_SYST 178; BP_SYST 184; BP_DIAS 80; BP_DIAS 88
[2018-12-14] VITALS (7 sets, daily range): BP systolic 147–190; BP diastolic 80–92
[2018-12-14] MEDS: ONDANSETRON 4MG/2ML VIAL (J2405) IV PRN ×2 (00:39→12:03)
[2018-12-14 06:32] LABS: HEMATOCRIT 40.1 % (42.0-52.0); MEAN CORPUSCULAR HEMOGLOBIN 27.2 pg (27.0-33.0); MEAN CORPUSCULAR HGB CONC 32.4 g/dl (32.0-36.5); MEAN CORPUSCULAR VOLUME 83.9 fl (80.0-96.0); PLATELET COUNT, AUTOMATED 349 10^3/uL (150-450); RED BLOOD COUNT 4.78 10^6/uL (4.30-6.10); WHITE BLOOD COUNT 12.7 10^3/uL (4.0-10.0)
[2018-12-14 06:54] LABS: CALCIUM LEVEL 8.8 MG/DL (8.8-10.2); CREATININE FOR GFR 1.75 MG/DL (0.70-1.30); GLOMERULAR FILTRATION RATE 42.3 (>49); POTASSIUM SERUM 4.2 MEQ/L (3.5-5.1)
[2018-12-14] MEDS: amLODIPine 10 MG TAB PO SCH (08:39)
[2018-12-14] MEDS: HEPARIN SOD (PORCINE) 5000 UNITS/ML VIAL SQ SCH ×2 (08:39→21:18)
[2018-12-14] MEDS: HumaLOG INSULIN (NovoLOG) PER UNIT SC SCH ×4 (08:39→20:32)
[2018-12-14] MEDS: PANTOPRAZOLE 40MG TAB (PROTONIX) PO SCH (08:39)
[2018-12-14] MEDS: levETIRAcetam 250MG TABLET (KEPPRA) PO SCH ×2 (08:39→21:18)
[2018-12-14] MEDS: lamoTRIgine 100MG TAB PO SCH ×2 (08:39→21:18)
[2018-12-14] MEDS: METOPROLOL TART 25 MG TABLET PO SCH ×2 (08:40→21:19)
--- NOTE | 2018-12-14 08:52 | ECGEPIP ---
[facility] Test Date: 2018-12-13 Pat Name: CARLO CHAVEZ Department: Room: [place] [address] Gender: Male [employer] Supervisor: : [id number] Requested By: QUANG MARIE PGY-1 Order Number: [id number] Reading MD: Carlo Houser Measurements Intervals [place] Rate: 67 P: 37 OR: 152 QRS: -11 QRSD: 86 T: 78 QT: 388 QTc: 412 Interpretive Statements SINUS RHYTHM WITH SINUS ARRHYTHMIA NONSPECIFIC T-WAVE ABNORMALITY Similar to tracing done 08-23-17 Electronically Signed on 12-14-2018 8:52:30 EDT by Carlo Houser
--- NOTE | 2018-12-14 15:12 | IPNPDOC ---
Date Seen The patient was seen on 12/14/18. Progress Note SUBJECTIVE: Patient is a 63-year-old male sitting up in chair answering questions. States that he has minimal pain in his right foot is tolerable with current pain regimen. Has been working with PT and has not been nonweightbearing as recommended on the right foot. Orthostats last night were stopped when the patient had to stand up for he felt a little nauseous and dizzy. He states that the dizziness episode happened after he had large volume urine output. He has no other complaints at this time. His XAVI is improving and his blood pressure has been improved with the amlodipine 10 mg. OBJECTIVE: PHYSICAL EXAMINATION: VITAL SIGNS: Please see below. GENERAL: 63-year-old pleasant male sitting up in his chair, no acute distress and answering questions. HEENT: Atraumatic normocephalic pupils are equal round and reactive moist mucous membranes with no JVD noted CARDIOVASCULAR: S1-S2 sounds present no audible murmurs rubs or gallops noted. RESPIRATORY: Clear to auscultate bilaterally no audible wheezing rhonchi or rales noted. ABDOMINAL: Morbidly obese abdomen soft nontender with positive bowel sounds in all 4 quadrants EXTREMITIES: No lower extremity edema. soft cast noted in his right lower extremity. with minimal swelling on the left lower leg. LABORATORY DATA, IMAGING STUDIES, MICROBIOLOGY: Please see below. Head CT: Essentially unremarkable CT examination of the brain. Chest CT: Stable CT findings. There is adenopathy as described above. There is cholelithiasis. There is a partially imaged right renal cyst. There is benign bilateral adrenal gland thickening. Cervical spine CT: Chronic changes, as described above. Foot x-ray: Probable Lisfranc fracture Ankle x-rays: Probable circumferential soft tissue edema. This should be confirmed clinically. Otherwise, essentially negative right ankle. CT extremity: 1. Fractures of the medial and intermediate cuneiforms. Lateral subluxation of the second through fifth proximal metatarsals relative to the tarsal bones consistent with disruption of Lisfranc joints. Fracture medial aspect of the tarsal navicular bone. 2. Diffuse soft tissue edema in the foot and visualized ankle. She only uses th em only DVT prophylaxis ordered?: Yes Heparin ASSESSMENT AND PLAN: This is a 63-year-old male with right foot fracture secondary to fall related to orthostasis. PROBLEMS: Fall possibly secondary to syncope/ Orthostasis - presented with symptoms of vertigo and describes orthostasis upon standing - PT attempted vestibular maneuvers but were negative - monitor his blood pressure and medications -ekg -HI interval <200ms may continue metoprolol. Hypertension -c/w metoprolol 25 mg PO BID -HOLD home losartan 100mg daily because of XAVI. -c/w amlodipine 10MG DAILY (there is a known side effect of lower extermity edema, will monitor) -continue to monitor orthostats Acute kidney injury (improving) -Possibly secondary to urinary retention -continue to hold nephrotoxin drugs -continue to monitor. s/p Urinary retention - s/p Ballard Catheter; has been urinating without difficulty - Has experienced an incontinence event yesterday evening Right foot fracture -orthopedic surgery consulted: follow-up only in soft cast -pain control- Ultram -continue to work with PT and OT, non-weight bearing on right foot for 4-6 weeks. Diabetes mellitus -c/w ISS -HOLD home metformin because of XAVI Morbid obesity -Complicates care Gastroesophageal reflux disease c/w pantoprazole Seizure disorder: -c/w with home Keppra, lamictal Dyslipidemia c/w Zocor Nicotine dependence c/w NicoDerm cessation counseling provided DVT ppx: Heparin VS, I&O, 24H, Fishbone Vital Signs/I&O Vital Signs Date Time Temp Pulse Resp B/P (MAP) Pulse Ox O2 Delivery O2 Flow Rate FiO2 12/14/18 12:11 98.1 67 154/90 (111) 94 12/14/18 06:00 20 12/10/18 11:00 Room Air I&O- Last 24 Hours up to 6 AM 12/14/18 06:00 Intake Total 2290 ml Output Total 1375 ml Balance 915 ml Laboratory Data 24H LABS Laboratory Tests 2 12/13/18 16:47: Bedside Glucose (Misc Panel) 161H 12/13/18 20:24: Bedside Glucose (Misc Panel) 188H 12/13/18 20:48: Bedside Glucose (Misc Panel) 196H 12/14/18 06:03: Nucleated Red Blood Cells % (auto) 0.0, Anion Gap 5L, Glomerular Filtration Rate 42.3L, Blood Urea Nitrogen 23H, Creatinine 1.75H, Sodium Level 140, Potassium Level 4.2, Chloride Level 108H, Carbon Dioxide Level 27, Calcium Level 8.8 12/14/18 11:26: Bedside Glucose (Misc Panel) 179H CBC/BMP Laboratory Tests 12/14/18 06:03 Red Blood Count 4.78, Mean Corpuscular Volume 83.9, Mean Corpuscular Hemoglobin 27.2, Mean Corpuscular Hemoglobin Concent 32.4, Red Cell Distribution Width 13.2, Calcium Level 8.8 GME ATTESTATION GME ATTESTATION My faculty preceptor for this patient encounter was physically present during the encounter and was fully available. All aspects of the patient interview, examination, medical decision making process, and medical care plan development were reviewed and approved by the faculty preceptor. The faculty preceptor is aware and concurs with the plan as stated in the body of this note and will attest to such by his/her cosignature. ATTENDING NOTE I, Miguelangel Fang, have independently examined this patient and performed my own physical exam, as well as reviewed the documentation and edited where necessary. I have discussed in detail with the resident / student the findings and plan of treatment as documented by the resident / student and edited their note. I agree with their findings and treatment plan and have edited their documentation. I will continue to follow the patient during this hospital stay. PB SOUZA DO Dec 14, 2018 15:12 MIGUELANGEL FANG MD Dec 14, 2018 16:12
[2018-12-14] MEDS: SIMVASTATIN 20 MG TAB PO SCH (21:18)
[2018-12-14] MEDS: FINASTERIDE 5 MG TAB PO SCH (21:18)
[2018-12-15 00:48] VITALS: BP_SYST 181; BP_SYST 190; BP_DIAS 65; BP_DIAS 93; BP_DIAS 94
[2018-12-15 06:00] VITALS: BP 149/89
[2018-12-15 06:15] LABS: HEMATOCRIT 42.5 % (42.0-52.0); HEMOGLOBIN 13.8 g/dl (13.5-17.5); MEAN CORPUSCULAR HEMOGLOBIN 27.8 pg (27.0-33.0); MEAN CORPUSCULAR HGB CONC 32.5 g/dl (32.0-36.5); MEAN CORPUSCULAR VOLUME 85.7 fl (80.0-96.0); PLATELET COUNT, AUTOMATED 345 10^3/uL (150-450); RED BLOOD COUNT 4.96 10^6/uL (4.30-6.10); WHITE BLOOD COUNT 13.1 10^3/uL (4.0-10.0)
[2018-12-15 06:32] LABS: CALCIUM LEVEL 8.9 MG/DL (8.8-10.2); CREATININE FOR GFR 1.72 MG/DL (0.70-1.30); GLOMERULAR FILTRATION RATE 43.1 (>49); POTASSIUM SERUM 4.5 MEQ/L (3.5-5.1)
[2018-12-15] MEDS: HumaLOG INSULIN (NovoLOG) PER UNIT SC SCH ×4 (07:34→21:00)
[2018-12-15] MEDS: levETIRAcetam 250MG TABLET (KEPPRA) PO SCH ×2 (09:06→21:54)
[2018-12-15] MEDS: HEPARIN SOD (PORCINE) 5000 UNITS/ML VIAL SQ SCH ×2 (09:06→21:58)
[2018-12-15] MEDS: lamoTRIgine 100MG TAB PO SCH ×2 (09:07→21:54)
[2018-12-15] MEDS: PANTOPRAZOLE 40MG TAB (PROTONIX) PO SCH (09:07)
[2018-12-15] MEDS: METOPROLOL TART 25 MG TABLET PO SCH ×2 (09:12→21:57)
[2018-12-15] MEDS: amLODIPine 10 MG TAB PO SCH (09:13)
[2018-12-15] MEDS: LOSARTAN 50 MG TAB PO SCH (12:24)
[2018-12-15] MEDS: FAMOTIDINE 20 MG TAB PO SCH ×2 (12:25→21:59)
--- NOTE | 2018-12-15 13:24 | IPNPDOC ---
Date Seen The patient was seen on 12/15/18. Progress Note SUBJECTIVE: Patient is a 63-year-old male sitting up in chair answering questions. States that he has minimal pain in his right foot is tolerable with current pain regimen. Has been working with PT and has not been nonweightbearing as recommended on the right foot. Still continue to deny pain in his foot and continue to have vomiting episodes out of random, which are NBNB in nature. Denies dizziness, lightheadedness, abdominal pain. admits to passing gas without problem. He has no other complaint at this time. OBJECTIVE: PHYSICAL EXAMINATION: VITAL SIGNS: Please see below. GENERAL: 63-year-old pleasant male sitting up in his chair, no acute distress and answering questions. HEENT: Atraumatic normocephalic pupils are equal round and reactive moist mucous membranes with no JVD noted CARDIOVASCULAR: S1-S2 sounds present no audible murmurs rubs or gallops noted. RESPIRATORY: Clear to auscultate bilaterally no audible wheezing rhonchi or rales noted. ABDOMINAL: Morbidly obese abdomen soft nontender with positive bowel sounds in all 4 quadrants EXTREMITIES: No lower extremity edema. soft cast noted in his right lower extremity. with minimal swelling on the left lower leg. LABORATORY DATA, IMAGING STUDIES, MICROBIOLOGY: Please see below. Head CT: Essentially unremarkable CT examination of the brain. Chest CT: Stable CT findings. There is adenopathy as described above. There is cholelithiasis. There is a partially imaged right renal cyst. There is benign bilateral adrenal gland thickening. Cervical spine CT: Chronic changes, as described above. Foot x-ray: Probable Lisfranc fracture Ankle x-rays: Probable circumferential soft tissue edema. This should be confirmed clinically. Otherwise, essentially negative right ankle. CT extremity: 1. Fractures of the medial and intermediate cuneiforms. Lateral subluxation of the second through fifth proximal metatarsals relative to the tarsal bones consistent with disruption of Lisfranc joints. Fracture medial aspect of the tarsal navicular bone. 2. Diffuse soft tissue edema in the foot and visualized ankle. She only uses them only DVT prophylaxis ordered?: Yes Heparin ASSESSMENT AND PLAN: This is a 63-year-old male with right foot fracture secondary to fall related to orthostasis. PROBLEMS: Fall possibly secondary to syncope/ Orthostasis - presented with symptoms of vertigo and describes orthostasis upon standing - PT attempted vestibular maneuvers but were negative - monitor his blood pressure and medications -ekg -IL interval <200ms may continue metoprolol. -lamictal has a known side effect of syncope Leukocytosis -WBC is fluctuating since admission. -afebrile, wNL heart rate, clinically appears stable not septic. -unsure if this reactive when the patient ambulates with his broke ankle -Not on antibiotics, do not believe is indicated at this time -continue to monitor. NBNB vomitting -hx of hernia repair and perforated duodenal ulcer 08/2017 -patient denies abdominal discomfort but also denies pain in his fractured foot. -obtain abdominal xray to evaluate if there is partial SBO? Hypertension -c/w metoprolol 25 mg PO BID -continue amlodipine 10MG DAILY (there is a known side effect of lower extermity edema, will monitor) -continue to monitor orthostats -restart 1/2 dose of home losartan monitor XAVI Acute kidney injury (improving) -Possibly secondary to urinary retention -continue to hold nephrotoxin drugs (restarted 1/2 dose of home losartan due to hypertension) -continue to monitor. s/p Urinary retention - s/p Ballard Catheter; has been urinating without difficulty Right foot fracture -orthopedic surgery consulted: follow-up only in soft cast -pain control- Ultram -continue to work with PT and OT, non-weight bearing on right foot for 4-6 weeks. Diabetes mellitus -c/w ISS -HOLD home metformin because of XAVI Morbid obesity -Complicates care Gastroesophageal reflux disease c/w pantoprazole Seizure disorder: -c/w with home Keppra, lamictal Dyslipidemia c/w Zocor Nicotine dependence c/w NicoDerm cessation counseling provided DVT ppx: Heparin VS, I&O, 24H, Fishbone Vital Signs/I&O Vital Signs Date Time Temp Pulse Resp B/P (MAP) Pulse Ox O2 Delivery O2 Flow Rate FiO2 12/15/18 12:24 173/83 12/15/18 09:13 69 12/15/18 06:00 99.0 19 96 12/10/18 11:00 Room Air I&O- Last 24 Hours up to 6 AM 12/15/18 06:00 Intake Total 2400 ml Output Total 1475 ml Balance 925 ml Laboratory Data 24H LABS Laboratory Tests 2 12/14/18 16:35: Bedside Glucose (Misc Panel) 186H 12/14/18 20:00: Bedside Glucose (Misc Panel) 197H 12/15/18 05:23: Nucleated Red Blood Cells % (auto) 0.0, Anion Gap 6L, Glomerular Filtration Rate 43.1L, Blood Urea Nitrogen 22H, Creatinine 1.72H, Sodium Level 140, Potassium Level 4.5, Chloride Level 106, Carbon Dioxide Level 28, Calcium Level 8.9 CBC/BMP Laboratory Tests 12/15/18 05:23 Red Blood Count 4.96, Mean Corpuscular Volume 85.7, Mean Corpuscular Hemoglobin 27.8, Mean Corpuscular Hemoglobin Concent 32.5, Red Cell Distribution Width 13.2, Calcium Level 8.9 GME ATTESTATION GME ATTESTATION My faculty preceptor for this patient encounter was physically present during the encounter and was fully available. All aspects of the patient interview, examination, medical decision making process, and medical care plan development were reviewed and approved by the faculty preceptor. The faculty preceptor is aware and concurs with the plan as stated in the body of this note and will attest to such by his/her cosignature. ATTENDING NOTE I, Miguelangel Fang, have independently examined this patient and performed my own physical exam, as well as reviewed the documentation and edited where necessary. I have discussed in detail with the resident / student the findings and plan of treatment as documented by the resident / student and edited their note. I agree with their findings and treatment plan and have edited their documentation. I will continue to follow the patient during this hospital stay. PB SOUZA DO Dec 15, 2018 13:24 MIGUELANGEL FANG MD Dec 15, 2018 15:24
[2018-12-15 14:00] VITALS: BP 168/84
[2018-12-15 14:11] LABS: LAMOTRIGINE (LAMICTAL) 8.7 ug/mL (2.0-20.0); LEVETIRACETAM (KEPPRA) 23.4 ug/mL (10.0-40.0)
[2018-12-15] MEDS: SIMVASTATIN 20 MG TAB PO SCH (21:54)
[2018-12-15 22:00] VITALS: BP 168/90
[2018-12-16] MEDS: ONDANSETRON 4MG/2ML VIAL (J2405) IV PRN (04:43)
[2018-12-16 05:56] LABS: HEMATOCRIT 40.9 % (42.0-52.0); HEMOGLOBIN 13.6 g/dl (13.5-17.5); MEAN CORPUSCULAR HEMOGLOBIN 27.8 pg (27.0-33.0); MEAN CORPUSCULAR HGB CONC 33.3 g/dl (32.0-36.5); MEAN CORPUSCULAR VOLUME 83.5 fl (80.0-96.0); PLATELET COUNT, AUTOMATED 358 10^3/uL (150-450); WHITE BLOOD COUNT 11.3 10^3/uL (4.0-10.0)
[2018-12-16 06:00] VITALS: BP 159/81
[2018-12-16 06:23] LABS: CALCIUM LEVEL 8.8 MG/DL (8.8-10.2); CREATININE FOR GFR 1.65 MG/DL (0.70-1.30); GLOMERULAR FILTRATION RATE 45.2 (>49); POTASSIUM SERUM 4.2 MEQ/L (3.5-5.1)
[2018-12-16] MEDS: HEPARIN SOD (PORCINE) 5000 UNITS/ML VIAL SQ SCH ×2 (09:19→22:20)
[2018-12-16] MEDS: HumaLOG INSULIN (NovoLOG) PER UNIT SC SCH ×4 (09:19→21:00)
[2018-12-16] MEDS: levETIRAcetam 250MG TABLET (KEPPRA) PO SCH ×2 (09:20→22:20)
[2018-12-16] MEDS: LOSARTAN 50 MG TAB PO SCH (09:21)
[2018-12-16] MEDS: METOPROLOL TART 25 MG TABLET PO SCH ×2 (09:21→22:21)
[2018-12-16] MEDS: PANTOPRAZOLE 40MG TAB (PROTONIX) PO SCH (09:21)
[2018-12-16] MEDS: lamoTRIgine 100MG TAB PO SCH ×2 (09:22→22:21)
[2018-12-16] MEDS: amLODIPine 10 MG TAB PO SCH (09:23)
[2018-12-16] MEDS: FAMOTIDINE 20 MG TAB PO SCH ×2 (09:23→22:21)
--- NOTE | 2018-12-16 11:25 | IPNPDOC ---
Date Seen The patient was seen on 12/16/18. Progress Note SUBJECTIVE: Patient is a 63-year-old male sitting up in chair answering questions. States that he has minimal pain in his right foot is tolerable with current pain regimen. Has been working with PT and has not been nonweightbearing as recommended on the right foot. Still continue to deny pain in his foot and continue to have vomiting and states it occurs in the middle of the night. continues to be NBNB in nature. He admits to eating food prior to going to bed and eating while laying on the bed. He denies dizziness, lightheadedness, abdominal pain. admits to passing gas without problem. Blood pressure is getting better controlled but still continues to be elevated. He has no other complaint at this time. OBJECTIVE: PHYSICAL EXAMINATION: VITAL SIGNS: Please see below. GENERAL: 63-year-old pleasant male sitting up in his chair, no acute distress and answering questions. HEENT: Atraumatic normocephalic pupils are equal round and reactive moist mucous membranes with no JVD noted CARDIOVASCULAR: S1-S2 sounds present no audible murmurs rubs or gallops noted. RESPIRATORY: Clear to auscultate bilaterally no audible wheezing rhonchi or rales noted. ABDOMINAL: Morbidly obese abdomen soft nontender with positive bowel sounds in all 4 quadrants EXTREMITIES: No lower extremity edema. soft cast noted in his right lower extremity. with minimal swelling on the left lower leg. LABORATORY DATA, IMAGING STUDIES, MICROBIOLOGY: Please see below. Head CT: Essentially unremarkable CT examination of the brain. Chest CT: Stable CT findings. There is adenopathy as described above. There is cholelithiasis. There is a partially imaged right renal cyst. There is benign bilateral adrenal gland thickening. Cervical spine CT: Chronic changes, as described above. Foot x-ray: Probable Lisfranc fracture Ankle x-rays: Probable circumferential soft tissue edema. This should be confirmed clinically. Otherwise, essentially negative right ankle. CT extremity: 1. Fractures of the medial and intermediate cuneiforms. Lateral subluxation of the second through fifth proximal metatarsals relative to the tarsal bones consistent with disruption of Lisfranc joints. Fracture medial aspect of the tarsal navicular bone. 2. Diffuse soft tissue edema in the foot and visualized ankle. She only uses them only DVT prophylaxis ordered?: Yes Heparin ASSESSMENT AND PLAN: This is a 63-year-old male with right foot fracture secondary to fall related to orthostasis. PROBLEMS: Fall possibly secondary to syncope/ Orthostasis - presented with symptoms of vertigo and describes orthostasis upon standing - PT attempted vestibular maneuvers but were negative - monitor his blood pressure and medications -ekg -DC interval <200ms may continue metoprolol. -lamictal has a known side effect of syncope Leukocytosis -WBC is fluctuating since admission. -afebrile, wNL heart rate, clinically appears stable not septic. -unsure if this reactive when the patient ambulates with his broke ankle -Not on antibiotics, do not believe is indicated at this time -continue to monitor. NBNB vomitting -hx of hernia repair and perforated duodenal ulcer 08/2017 -patient denies abdominal discomfort but also denies pain in his fractured foot. -obtain abdominal xray to evaluate if there is partial SBO? -adviced not to eat prior to going to sleep and must sit up while eating and wait minimum 30 minutes after eating before laying down Hypertension -c/w metoprolol 25 mg PO BID -continue amlodipine 10MG DAILY (there is a known side effect of lower extermity edema, will monitor) -continue to monitor orthostats -increas losartan to 75mg daily (home dose 100mg daily) monitor XAVI Acute kidney injury (improving) -Possibly secondary to urinary retention -continue to hold nephrotoxin drugs, except restarted 3/4 losartan due to hypertension -continue to monitor. s/p Urinary retention - s/p Ballard Catheter; has been urinating without difficulty Right foot fracture -orthopedic surgery consulted: follow-up outpatient only, continue in soft cast -pain control- Ultram -continue to work with PT and OT, non-weight bearing on right foot for 4-6 weeks. Diabetes mellitus -c/w ISS -HOLD home metformin because of XAVI Morbid obesity -Complicates care Gastroesophageal reflux disease c/w pantoprazole Seizure disorder: -c/w with home Keppra, lamictal Dyslipidemia c/w Zocor Nicotine dependence c/w NicoDerm cessation counseling provided DVT ppx: Heparin VS, I&O, 24H, Fishbone Vital Signs/I&O Vital Signs Date Time Temp Pulse Resp B/P (MAP) Pulse Ox O2 Delivery O2 Flow Rate FiO2 12/16/18 09:21 67 159/81 12/16/18 06:00 97.1 20 95 12/10/18 11:00 Room Air I&O- Last 24 Hours up to 6 AM 12/16/18 05:59 Intake Total 1965 ml Output Total 925 ml Balance 1040 ml Laboratory Data 24H LABS Laboratory Tests 2 12/15/18 16:22: Bedside Glucose (Misc Panel) 205H 12/15/18 20:18: Bedside Glucose (Misc Panel) 153H 12/16/18 05:25: Nucleated Red Blood Cells % (auto) 0.0, Anion Gap 6L, Glomerular Filtration Rate 45.2L, Blood Urea Nitrogen 21H, Creatinine 1.65H, Sodium Level 140, Potassium Level 4.2, Chloride Level 106, Carbon Dioxide Level 28, Calcium Level 8.8 CBC/BMP Laboratory Tests 12/16/18 05:25 Red Blood Count 4.90, Mean Corpuscular Volume 83.5, Mean Corpuscular Hemoglobin 27.8, Mean Corpuscular Hemoglobin Concent 33.3, Red Cell Distribution Width 13.2, Calcium Level 8.8 GME ATTESTATION GME ATTESTATION My faculty preceptor for this patient encounter was physically present during the encounter and was fully available. All aspects of the patient interview, examination, medical decision making process, and medical care plan development were reviewed and approved by the faculty preceptor. The faculty preceptor is aware and concurs with the plan as stated in the body of this note and will attest to such by his/her cosignature. ATTENDING NOTE I, Miguelangel Fang, have independently examined this patient and performed my own physical exam, as well as reviewed the documentation and edited where necessary. I have discussed in detail with the resident / student the findings and plan of treatment as documented by the resident / student and edited their note. I agree with their findings and treatment plan and have edited their documentation. I will continue to follow the patient during this hospital stay. PB SOUZA DO Dec 16, 2018 11:25 MIGUELANGEL FANG MD Dec 16, 2018 16:04
[2018-12-16] MEDS ORDERED: LOSARTAN 25 MG TAB PO ONE (13:00)
[2018-12-16 14:00] VITALS: BP 156/70
[2018-12-16] MEDS: SENOKOT S TAB PO PRN (15:04)
[2018-12-16 20:00] VITALS: BP 168/90
[2018-12-16] MEDS: SIMVASTATIN 20 MG TAB PO SCH (22:21)
[2018-12-17] MEDS: ONDANSETRON 4MG/2ML VIAL (J2405) IV PRN (03:50)
[2018-12-17 04:08] VITALS: BP 139/58
[2018-12-17 05:46] LABS: HEMATOCRIT 41.9 % (42.0-52.0); HEMOGLOBIN 13.8 g/dl (13.5-17.5); MEAN CORPUSCULAR HEMOGLOBIN 27.4 pg (27.0-33.0); MEAN CORPUSCULAR HGB CONC 32.9 g/dl (32.0-36.5); MEAN CORPUSCULAR VOLUME 83.3 fl (80.0-96.0); PLATELET COUNT, AUTOMATED 351 10^3/uL (150-450); RED BLOOD COUNT 5.03 10^6/uL (4.30-6.10); WHITE BLOOD COUNT 13.9 10^3/uL (4.0-10.0)
[2018-12-17 06:00] VITALS: BP 133/71
[2018-12-17 06:14] LABS: CALCIUM LEVEL 9.3 MG/DL (8.8-10.2); CREATININE FOR GFR 1.68 MG/DL (0.70-1.30); GLOMERULAR FILTRATION RATE 44.3 (>49); POTASSIUM SERUM 4.1 MEQ/L (3.5-5.1)
[2018-12-17] MEDS: levETIRAcetam 250MG TABLET (KEPPRA) PO SCH ×2 (08:42→20:40)
[2018-12-17] MEDS: LOSARTAN 25 MG TAB PO SCH (08:43)
[2018-12-17] MEDS: amLODIPine 10 MG TAB PO SCH (08:43)
[2018-12-17] MEDS: lamoTRIgine 100MG TAB PO SCH ×2 (08:43→20:40)
[2018-12-17] MEDS: FAMOTIDINE 20 MG TAB PO SCH ×2 (08:43→20:40)
[2018-12-17] MEDS: PANTOPRAZOLE 40MG TAB (PROTONIX) PO SCH (08:43)
[2018-12-17] MEDS: traMADol 50 MG TAB PO PRN (08:45)
[2018-12-17] MEDS: HumaLOG INSULIN (NovoLOG) PER UNIT SC SCH ×4 (08:45→20:41)
[2018-12-17] MEDS: METOPROLOL TART 25 MG TABLET PO SCH ×2 (08:45→20:40)
[2018-12-17] MEDS: HEPARIN SOD (PORCINE) 5000 UNITS/ML VIAL SQ SCH ×2 (08:46→20:41)
--- NOTE | 2018-12-17 08:56 | REP ---
Clinical: Abdominal pain with vomiting. Technique: Axial noncontrast images from the lung bases to the pubic symphysis with coronal and sagittal re-formations. Comparison: 08/23/2017 Findings: Lung bases are relatively clear. Liver, spleen, pancreas, bilateral adrenal glands are normal. Kidneys demonstrate hypodense and hyperdense rounded lesions likely representing simple and complex cysts similar to prior examination. Cholelithiasis noted without evidence for acute cholecystitis. The enteric system is without obstruction or acute inflammatory process. Normal terminal ileum and appendix are identified in the right lower quadrant. Pelvis demonstrates normal bladder and age appropriate prostate/seminal vesicles. No ascites. No free air. No adenopathy. Atherosclerotic changes of the aorta and vasculature noted without aneurysm. Musculoskeletal structures demonstrate age-related degenerative changes. Impression: 1. No acute abdominopelvic pathology appreciated. 2. Cholelithiasis. 3. Hypo and hyperdense round renal lesions likely representing simple and complex cysts similar to prior examination. 4. No ascites. No focal inflammatory stranding. No adenopathy. Electronically Signed by Anuj Bautista MD 12/17/2018 08:47 A
[2018-12-17 14:00] VITALS: BP 133/71
--- NOTE | 2018-12-17 14:12 | IPNPDOC ---
Date Seen The patient was seen on 12/17/18. Progress Note SUBJECTIVE: Patient is a 63-year-old male sitting up in chair answering questions. He has no complaints at this time likely he does not want to work with PT for he doesn't want to go to rehabilitation. He would like to go home is opened getting places via wheelchair. He states that his house is one floor and is wheelchair accessible. He understands that he doesn't have the strength to get around places but he has his brother will help him if he does fall. Patient is not agreeable to any further PT recommendations. Blood pressure is getting more controlled with the increase of his lisinopril back to his home dose. He continues to have vomiting episodes at night only. No other reported events. OBJECTIVE: PHYSICAL EXAMINATION: VITAL SIGNS: Please see below. GENERAL: 63-year-old pleasant male sitting up in his chair, no acute distress and answering questions. HEENT: Atraumatic normocephalic pupils are equal round and reactive moist mucous membranes with no JVD noted CARDIOVASCULAR: S1-S2 sounds present no audible murmurs rubs or gallops noted. RESPIRATORY: Clear to auscultate bilaterally no audible wheezing rhonchi or rales noted. ABDOMINAL: Morbidly obese abdomen soft nontender with positive bowel sounds in all 4 quadrants EXTREMITIES: No lower extremity edema. soft cast noted in his right lower extremity. with minimal swelling on the left lower leg. LABORATORY DATA, IMAGING STUDIES, MICROBIOLOGY: Please see below. Head CT: Essentially unremarkable CT examination of the brain. Chest CT: Stable CT findings. There is adenopathy as described above. There is cholelithiasis. There is a partially imaged right renal cyst. There is benign bilateral adrenal gland thickening. Cervical spine CT: Chronic changes, as described above. Foot x-ray: Probable Lisfranc fracture Ankle x-rays: Probable circumferential soft tissue edema. This should be confirmed clinically. Otherwise, essentially negative right ankle. CT extremity: 1. Fractures of the medial and intermediate cuneiforms. Lateral subluxation of the second through fifth proximal metatarsals relative to the tarsal bones consistent with disruption of Lisfranc joints. Fracture medial aspect of the tarsal navicular bone. 2. Diffuse soft tissue edema in the foot and visualized ankle. She only uses them only 12/17/18 CT abdomen Impression: 1. No acute abdominopelvic pathology appreciated. 2. Cholelithiasis. 3. Hypo and hyperdense round renal lesions likely representing simple and complex cysts similar to prior examination. 4. No ascites. No focal inflammatory stranding. No adenopathy. DVT prophylaxis ordered?: Yes Heparin ASSESSMENT AND PLAN: This is a 63-year-old male with right foot fracture secondary to fall related to orthostasis. PROBLEMS: Fall possibly secondary to syncope/ Orthostasis - presented with symptoms of vertigo and describes orthostasis upon standing - PT attempted vestibular maneuvers but were negative - monitor his blood pressure and medications -ekg -HI interval <200ms may continue metoprolol. -lamictal has a known side effect of syncope Leukocytosis (Stable) -WBC is fluctuating since admission. -afebrile, wNL heart rate, clinically appears stable not septic. -Not on antibiotics, do not believe is indicated at this time -continue to monitor. NBNB vomitting -hx of hernia repair and perforated duodenal ulcer 08/2017 -patient denies abdominal discomfort but also denies pain in his fractured foot. -CT abdomen negative -Need to sit up while eating and wait minimum 30 minutes after eating before laying down Hypertension (improving) -c/w metoprolol 25 mg PO BID -continue amlodipine 10MG DAILY (there is a known side effect of lower extermity edema, will monitor) -continue to monitor orthostats -increase losartan to 75mg daily (home dose 100mg daily) monitor XAVI Acute kidney injury (improving) -Possibly secondary to urinary retention -continue to hold nephrotoxin drugs, except restarted 3/4 losartan due to hypertension -continue to monitor. s/p Urinary retention - s/p Ballard Catheter; has been urinating without difficulty Right foot fracture -orthopedic surgery consulted: follow-up outpatient only, continue in soft cast -pain control- Ultram -continue to work with PT and OT, non-weight bearing on right foot for 4-6 weeks. Diabetes mellitus -c/w ISS -HOLD home metformin Morbid obesity -Complicates care Gastroesophageal reflux disease c/w pantoprazole Seizure disorder: -c/w with home Keppra, lamictal Dyslipidemia c/w Zocor Nicotine dependence c/w NicoDerm cessation counseling provided DVT ppx: Heparin PT/OT -continue to work with PT/OT for clearance prior to going home Disposition: - ALC status, awaiting PT clearance. VS, I&O, 24H, Fishbone Vital Signs/I&O Vital Signs Date Time Temp Pulse Resp B/P (MAP) Pulse Ox O2 Delivery O2 Flow Rate FiO2 12/17/18 09:15 18 12/17/18 08:43 189/72 12/17/18 08:43 74 12/17/18 06:00 97.5 97 12/16/18 20:50 Room Air I&O- Last 24 Hours up to 6 AM 12/17/18 05:59 Intake Total 990 ml Output Total 1370 ml Balance -380 ml Laboratory Data 24H LABS Laboratory Tests 2 12/16/18 16:38: Bedside Glucose (Misc Panel) 162H 12/16/18 21:31: Bedside Glucose (Misc Panel) 189H 12/17/18 05:32: Nucleated Red Blood Cells % (auto) 0.0, Anion Gap 5L, Glomerular Filtration Rate 44.3L, Blood Urea Nitrogen 20H, Creatinine 1.68H, Sodium Level 139, Potassium Level 4.1, Chloride Level 105, Carbon Dioxide Level 29, Calcium Level 9.3 12/17/18 11:48: Bedside Glucose (Misc Panel) 186H CBC/BMP Laboratory Tests 12/17/18 05:32 Red Blood Count 5.03, Mean Corpuscular Volume 83.3, Mean Corpuscular Hemoglobin 27.4, Mean Corpuscular Hemoglobin Concent 32.9, Red Cell Distribution Width 13.2, Calcium Level 9.3 GME ATTESTATION GME ATTESTATION My faculty preceptor for this patient encounter was physically present during the encounter and was fully available. All aspects of the patient interview, examination, medical decision making process, and medical care plan development were reviewed and approved by the faculty preceptor. The faculty preceptor is aware and concurs with the plan as stated in the body of this note and will attest to such by his/her cosignature. ATTENDING NOTE I, Miguelangel Fang, have independently examined this patient and performed my own physical exam, as well as reviewed the documentation and edited where necessary. I have discussed in detail with the resident / student the findings and plan of treatment as documented by the resident / student and edited their note. I agree with their findings and treatment plan and have edited their documentation. I will continue to follow the patient during this hospital stay. PB SOUZA DO Dec 17, 2018 14:12 MIGUELANGEL FANG MD Dec 17, 2018 15:23
[2018-12-17] MEDS: SIMVASTATIN 20 MG TAB PO SCH (20:40)
[2018-12-17 22:00] VITALS: BP 142/88
[2018-12-18 06:00] VITALS: BP 142/84
[2018-12-18] MEDS: PANTOPRAZOLE 40MG TAB (PROTONIX) PO SCH (08:25)
[2018-12-18] MEDS: lamoTRIgine 100MG TAB PO SCH ×2 (08:25→20:44)
[2018-12-18] MEDS: FAMOTIDINE 20 MG TAB PO SCH ×2 (08:26→20:44)
[2018-12-18] MEDS: levETIRAcetam 250MG TABLET (KEPPRA) PO SCH ×2 (08:26→20:43)
[2018-12-18] MEDS: HumaLOG INSULIN (NovoLOG) PER UNIT SC SCH ×4 (08:27→20:43)
[2018-12-18] MEDS: HEPARIN SOD (PORCINE) 5000 UNITS/ML VIAL SQ SCH ×2 (08:27→20:45)
[2018-12-18] MEDS: METOPROLOL TART 25 MG TABLET PO SCH ×2 (08:27→20:53)
[2018-12-18] MEDS: amLODIPine 10 MG TAB PO SCH (08:28)
[2018-12-18] MEDS: LOSARTAN 25 MG TAB PO SCH (08:29)
[2018-12-18] MEDS: SIMVASTATIN 20 MG TAB PO SCH (20:44)
[2018-12-18 23:30] VITALS: BP 170/77
[2018-12-19 06:00] VITALS: BP 200/90
[2018-12-19] MEDS: METOPROLOL TART 25 MG TABLET PO SCH ×2 (06:28→22:24)
[2018-12-19] MEDS: LOSARTAN 25 MG TAB PO SCH (06:28)
[2018-12-19] MEDS: amLODIPine 10 MG TAB PO SCH (06:28)
[2018-12-19 06:37] LABS: HEMATOCRIT 43.7 % (42.0-52.0); HEMOGLOBIN 14.3 g/dl (13.5-17.5); MEAN CORPUSCULAR HEMOGLOBIN 27.9 pg (27.0-33.0); MEAN CORPUSCULAR HGB CONC 32.7 g/dl (32.0-36.5); MEAN CORPUSCULAR VOLUME 85.2 fl (80.0-96.0); PLATELET COUNT, AUTOMATED 355 10^3/uL (150-450); RED BLOOD COUNT 5.13 10^6/uL (4.30-6.10); WHITE BLOOD COUNT 12.4 10^3/uL (4.0-10.0)
[2018-12-19 07:07] LABS: CALCIUM LEVEL 9.1 MG/DL (8.8-10.2); CREATININE FOR GFR 1.72 MG/DL (0.70-1.30); GLOMERULAR FILTRATION RATE 43.1 (>49); POTASSIUM SERUM 3.9 MEQ/L (3.5-5.1)
[2018-12-19 07:30] VITALS: BP 180/92
[2018-12-19] MEDS: FAMOTIDINE 20 MG TAB PO SCH ×2 (08:28→22:22)
[2018-12-19] MEDS: lamoTRIgine 100MG TAB PO SCH ×2 (08:28→22:22)
[2018-12-19] MEDS: PANTOPRAZOLE 40MG TAB (PROTONIX) PO SCH (08:28)
[2018-12-19] MEDS: levETIRAcetam 250MG TABLET (KEPPRA) PO SCH ×2 (08:28→22:21)
[2018-12-19] MEDS: HumaLOG INSULIN (NovoLOG) PER UNIT SC SCH ×4 (08:29→22:27)
[2018-12-19] MEDS: HEPARIN SOD (PORCINE) 5000 UNITS/ML VIAL SQ SCH ×2 (08:29→22:26)
[2018-12-19] MEDS: MOM 30ML SUSPENSION UDC PO PRN (13:55)
[2018-12-19] MEDS: SENOKOT S TAB PO PRN (13:55)
[2018-12-19 18:55] VITALS: BP 175/78
[2018-12-19 22:00] VITALS: BP 169/91
[2018-12-19] MEDS: SIMVASTATIN 20 MG TAB PO SCH (22:22)
[2018-12-19] MEDS: traMADol 50 MG TAB PO PRN (23:48)
[2018-12-20 06:00] VITALS: BP 171/93
[2018-12-20] MEDS: lamoTRIgine 100MG TAB PO SCH ×2 (09:29→20:51)
[2018-12-20] MEDS: levETIRAcetam 250MG TABLET (KEPPRA) PO SCH ×2 (09:29→20:51)
[2018-12-20] MEDS: FAMOTIDINE 20 MG TAB PO SCH ×2 (09:31→20:51)
[2018-12-20] MEDS: LOSARTAN 25 MG TAB PO SCH (09:31)
[2018-12-20] MEDS: PANTOPRAZOLE 40MG TAB (PROTONIX) PO SCH (09:31)
[2018-12-20] MEDS: METOPROLOL TART 25 MG TABLET PO SCH ×2 (09:32→20:51)
[2018-12-20] MEDS: HEPARIN SOD (PORCINE) 5000 UNITS/ML VIAL SQ SCH ×2 (09:33→20:52)
[2018-12-20] MEDS: amLODIPine 10 MG TAB PO SCH (09:33)
[2018-12-20] MEDS: HumaLOG INSULIN (NovoLOG) PER UNIT SC SCH ×4 (09:49→20:52)
[2018-12-20] MEDS: SIMVASTATIN 20 MG TAB PO SCH (20:51)
[2018-12-20] MEDS: SENOKOT S TAB PO PRN (20:52)
[2018-12-21] MEDS: ONDANSETRON 4MG/2ML VIAL (J2405) IV PRN (04:21)
[2018-12-21] MEDS: ONDANSETRON 4 MG ORAL DISINTEGRATING TAB (Q0162 PER 1MG) SL PRN (05:16)
[2018-12-21 06:00] VITALS: BP 198/88
[2018-12-21 06:40] LABS: HEMATOCRIT 42.8 % (42.0-52.0); HEMOGLOBIN 13.5 g/dl (13.5-17.5); MEAN CORPUSCULAR HEMOGLOBIN 27.4 pg (27.0-33.0); MEAN CORPUSCULAR HGB CONC 31.5 g/dl (32.0-36.5); MEAN CORPUSCULAR VOLUME 86.8 fl (80.0-96.0); PLATELET COUNT, AUTOMATED 182 10^3/uL (150-450); RED BLOOD COUNT 4.93 10^6/uL (4.30-6.10); WHITE BLOOD COUNT 12.4 10^3/uL (4.0-10.0)
[2018-12-21 07:00] LABS: CALCIUM LEVEL 8.8 MG/DL (8.8-10.2); CREATININE FOR GFR 1.51 MG/DL (0.70-1.30); GLOMERULAR FILTRATION RATE 50.1 (>49); POTASSIUM SERUM 4.9 MEQ/L (3.5-5.1)
[2018-12-21] MEDS: levETIRAcetam 250MG TABLET (KEPPRA) PO SCH ×2 (08:27→22:30)
[2018-12-21] MEDS: FAMOTIDINE 20 MG TAB PO SCH ×2 (08:28→22:30)
[2018-12-21] MEDS: LOSARTAN 25 MG TAB PO SCH (08:28)
[2018-12-21] MEDS: amLODIPine 10 MG TAB PO SCH (08:28)
[2018-12-21] MEDS: PANTOPRAZOLE 40MG TAB (PROTONIX) PO SCH (08:28)
[2018-12-21] MEDS: HumaLOG INSULIN (NovoLOG) PER UNIT SC SCH ×4 (08:29→21:00)
[2018-12-21] MEDS: HEPARIN SOD (PORCINE) 5000 UNITS/ML VIAL SQ SCH ×3 (08:29→23:55)
[2018-12-21] MEDS: lamoTRIgine 100MG TAB PO SCH ×2 (08:29→22:31)
[2018-12-21] MEDS: METOPROLOL TART 25 MG TABLET PO SCH ×2 (08:29→22:30)
[2018-12-21] MEDS: MOM 30ML SUSPENSION UDC PO PRN (09:53)
[2018-12-21] MEDS: SENOKOT S TAB PO PRN (09:54)
[2018-12-21 22:28] VITALS: BP 185/87
[2018-12-21] MEDS: SIMVASTATIN 20 MG TAB PO SCH (22:30)
[2018-12-22 02:45] VITALS: BP 171/82
[2018-12-22 06:00] VITALS: BP 160/84
[2018-12-22] MEDS: levETIRAcetam 250MG TABLET (KEPPRA) PO SCH ×2 (09:31→22:28)
[2018-12-22] MEDS: HEPARIN SOD (PORCINE) 5000 UNITS/ML VIAL SQ SCH ×2 (09:31→22:29)
[2018-12-22] MEDS: FAMOTIDINE 20 MG TAB PO SCH ×2 (09:31→22:28)
[2018-12-22] MEDS: METOPROLOL TART 25 MG TABLET PO SCH ×2 (09:32→22:29)
[2018-12-22] MEDS: LOSARTAN 25 MG TAB PO SCH (09:32)
[2018-12-22] MEDS: lamoTRIgine 100MG TAB PO SCH ×2 (09:32→22:28)
[2018-12-22] MEDS: PANTOPRAZOLE 40MG TAB (PROTONIX) PO SCH (09:32)
[2018-12-22] MEDS: amLODIPine 10 MG TAB PO SCH (09:32)
[2018-12-22] MEDS: HumaLOG INSULIN (NovoLOG) PER UNIT SC SCH ×4 (09:33→21:00)
[2018-12-22 14:00] VITALS: BP 148/64
[2018-12-22 22:00] VITALS: BP 180/85
[2018-12-22] MEDS: SIMVASTATIN 20 MG TAB PO SCH (22:28)
[2018-12-23] MEDS: ONDANSETRON 4 MG ORAL DISINTEGRATING TAB (Q0162 PER 1MG) SL PRN (05:12)
[2018-12-23 06:00] VITALS: BP 164/81
[2018-12-23 06:21] LABS: HEMATOCRIT 42.6 % (42.0-52.0); HEMOGLOBIN 13.9 g/dl (13.5-17.5); MEAN CORPUSCULAR HEMOGLOBIN 27.4 pg (27.0-33.0); MEAN CORPUSCULAR HGB CONC 32.6 g/dl (32.0-36.5); MEAN CORPUSCULAR VOLUME 83.9 fl (80.0-96.0); PLATELET COUNT, AUTOMATED 342 10^3/uL (150-450); RED BLOOD COUNT 5.08 10^6/uL (4.30-6.10); WHITE BLOOD COUNT 13.5 10^3/uL (4.0-10.0)
[2018-12-23 06:51] LABS: CALCIUM LEVEL 8.6 MG/DL (8.8-10.2); CREATININE FOR GFR 1.61 MG/DL (0.70-1.30); GLOMERULAR FILTRATION RATE 46.5 (>49); POTASSIUM SERUM 3.9 MEQ/L (3.5-5.1)
[2018-12-23] MEDS: HEPARIN SOD (PORCINE) 5000 UNITS/ML VIAL SQ SCH ×2 (08:05→22:34)
[2018-12-23] MEDS: HumaLOG INSULIN (NovoLOG) PER UNIT SC SCH ×4 (08:06→21:00)
[2018-12-23] MEDS: FAMOTIDINE 20 MG TAB PO SCH ×2 (08:06→22:27)
[2018-12-23] MEDS: PANTOPRAZOLE 40MG TAB (PROTONIX) PO SCH (08:06)
[2018-12-23] MEDS: amLODIPine 10 MG TAB PO SCH (08:07)
[2018-12-23] MEDS: levETIRAcetam 250MG TABLET (KEPPRA) PO SCH ×2 (08:07→22:27)
[2018-12-23] MEDS: lamoTRIgine 100MG TAB PO SCH ×2 (08:07→22:27)
[2018-12-23] MEDS: METOPROLOL TART 25 MG TABLET PO SCH ×2 (08:08→22:33)
[2018-12-23] MEDS: LOSARTAN 25 MG TAB PO SCH (08:08)
[2018-12-23] MEDS: traMADol 50 MG TAB PO PRN (10:42)
[2018-12-23] MEDS: SIMVASTATIN 20 MG TAB PO SCH (22:28)
[2018-12-24] MEDS: ONDANSETRON 4 MG ORAL DISINTEGRATING TAB (Q0162 PER 1MG) SL PRN ×2 (03:04→22:40)
[2018-12-24 06:00] VITALS: BP 171/80
[2018-12-24] MEDS: HumaLOG INSULIN (NovoLOG) PER UNIT SC SCH ×4 (07:30→21:00)
[2018-12-24] MEDS: FAMOTIDINE 20 MG TAB PO SCH ×2 (08:41→20:17)
[2018-12-24] MEDS: METOPROLOL TART 25 MG TABLET PO SCH ×2 (08:41→20:20)
[2018-12-24] MEDS: lamoTRIgine 100MG TAB PO SCH ×2 (08:41→20:17)
[2018-12-24] MEDS: LOSARTAN 25 MG TAB PO SCH (08:42)
[2018-12-24] MEDS: levETIRAcetam 250MG TABLET (KEPPRA) PO SCH ×2 (08:42→20:20)
[2018-12-24] MEDS: amLODIPine 10 MG TAB PO SCH (08:42)
[2018-12-24] MEDS: PANTOPRAZOLE 40MG TAB (PROTONIX) PO SCH (08:42)
[2018-12-24] MEDS: HEPARIN SOD (PORCINE) 5000 UNITS/ML VIAL SQ SCH ×3 (08:43→20:16)
--- NOTE | 2018-12-24 11:25 | IPNPDOC ---
Date Seen The patient was seen on 12/24/18. Progress Note SUBJECTIVE: Patient tells me that he has some intermittent nausea but no vomiting of food. He denies any symptoms of orthostasis until his pain is well- controlled that he is open to going to a rehabilitation facility anywhere nearby. Otherwise patient denies chest pain, shortness breath, fevers, chills OBJECTIVE PHYSICAL EXAMINATION: VITAL SIGNS: Please see below. GENERAL: Pleasant elderly man lying flat in bed awake alert oriented speaking in complete sentences no acute distress HEENT: Moist mucous membranes no elevation in CVP CARDIOVASCULAR: S1 S2 regular no additional heart sounds appreciated. RESPIRATORY: Clear to auscultation bilaterally. ABDOMINAL: Bowel sounds present abdomen soft and nontender, obese benign exam EXTREMITIES: No clubbing cyanosis or edema, his right lower extremity is in a soft cast NEUROLOGICAL: Spontaneously moves all 4 extremities, decreased in the right lower extremity secondary to cast, cranial 2 through 12 grossly intact no gross focal deficits appreciated PSYCHOLOGICAL: Appropriate LABORATORY DATA, MICROBIOLOGY: Please see below. IMAGING STUDIES: Head CT:Essentially unremarkable CT examination of the brain. Chest CT:Stable CT findings. There is adenopathy as described above. There is cholelithiasis. There is a partially imaged right renal cyst. There is benign bilateral adrenal gland thickening. Cervical spine CT:Chronic changes, as described above. Foot x-ray:Probable Lisfranc fracture Ankle x-rays:Probable circumferential soft tissue edema. This should be confirmed clinically. Otherwise, essentially negative right ankle. CT extremity:1. Fractures of the medial and intermediate cuneiforms. Lateral subluxation of the second through fifth proximal metatarsals relative to the tarsal bones consistent with disruption of Lisfranc joints. Fracture medial aspect of the tarsal navicular bone. 2. Diffuse soft tissue edema in the foot and visualized ankle. She only uses them only CT abdomen and pelvis December 17 CT abdomen and pelvis:1. No acute abdominopelvic pathology appreciated. 2. Cholelithiasis. 3. Hypo and hyperdense round renal lesions likely representing simple and complex cysts similar to prior examination. 4. No ascites. No focal inflammatory stranding. No adenopathy. ASSESSMENT AND PLAN: This is a 63-year-old man with right foot fracture secondary to a fall related to orthostasis. PROBLEMS: 1. Fall: Patient presented with symptoms of vertigo and describes orthostasis upon standing has since have resolved. He did receive IV fluid resuscitation initially. At this time he does have a fracture of the right foot and is awaiting rehabilitation placement I did discuss further with PFS today pending PCC rounds. Orthopedic surgery was spoke to him previously regarding his foot fracture recommended outpatient follow-up only in soft cast as well as pain control. 2. Orthostasis: Possibly secondary to dehydration had been taking poor and prior to his hospitalization. At this time is X a little bit hypertensive I will increase his losartan and monitor 3. Diabetes mellitus: Fingersticks controlled. 5. Hypertension: As above 6. Morbid obesity: Complicating 7. Gastroesophageal reflux disease: Continue with pantoprazole 8. Seizure disorder: Continue with Keppra 9. Dyslipidemia: Continue his Zocor 10. Nicotine dependence: Continue his NicoDerm cessation counseling provided previously DVT prophylaxis: Heparin DISPOSITION: I suspect rehabilitation. VS, I&O, 24H, Fishbone Vital Signs/I&O Vital Signs Date Time Temp Pulse Resp B/P (MAP) Pulse Ox O2 Delivery O2 Flow Rate FiO2 12/24/18 08:42 171/80 12/24/18 08:42 81 12/24/18 06:00 98.4 19 99 I&O- Last 24 Hours up to 6 AM 12/24/18 06:00 Intake Total 1320 ml Output Total 875 ml Balance 445 ml Laboratory Data 24H LABS Laboratory Tests 2 12/23/18 16:36: Bedside Glucose (Misc Panel) 264H 12/23/18 21:16: Bedside Glucose (Misc Panel) 237H 12/24/18 06:10: Bedside Glucose (Misc Panel) 180H ANA DOWNEY MD Dec 24, 2018 11:25
[2018-12-24] MEDS ORDERED: LOSARTAN 25 MG TAB PO ONE (12:00)
[2018-12-24] MEDS: SIMVASTATIN 20 MG TAB PO SCH (20:17)
[2018-12-25 06:44] LABS: HEMOGLOBIN 13.2 g/dl (13.5-17.5); MEAN CORPUSCULAR HEMOGLOBIN 27.3 pg (27.0-33.0); MEAN CORPUSCULAR HGB CONC 32.2 g/dl (32.0-36.5); MEAN CORPUSCULAR VOLUME 84.7 fl (80.0-96.0); PLATELET COUNT, AUTOMATED 312 10^3/uL (150-450); RED BLOOD COUNT 4.84 10^6/uL (4.30-6.10); WHITE BLOOD COUNT 13.7 10^3/uL (4.0-10.0)
[2018-12-25 07:02] LABS: CALCIUM LEVEL 8.7 MG/DL (8.8-10.2); CREATININE FOR GFR 1.65 MG/DL (0.70-1.30); GLOMERULAR FILTRATION RATE 45.2 (>49); POTASSIUM SERUM 4.1 MEQ/L (3.5-5.1)
[2018-12-25] MEDS: HEPARIN SOD (PORCINE) 5000 UNITS/ML VIAL SQ SCH ×2 (08:16→20:26)
[2018-12-25] MEDS: FAMOTIDINE 20 MG TAB PO SCH ×2 (08:35→20:21)
[2018-12-25] MEDS: lamoTRIgine 100MG TAB PO SCH ×2 (08:36→20:21)
[2018-12-25] MEDS: PANTOPRAZOLE 40MG TAB (PROTONIX) PO SCH (08:36)
[2018-12-25] MEDS: levETIRAcetam 250MG TABLET (KEPPRA) PO SCH ×2 (08:36→20:21)
[2018-12-25] MEDS: HumaLOG INSULIN (NovoLOG) PER UNIT SC SCH ×6 (08:37→21:00)
[2018-12-25] MEDS: amLODIPine 10 MG TAB PO SCH (08:38)
[2018-12-25] MEDS: METOPROLOL TART 25 MG TABLET PO SCH ×2 (08:38→20:26)
[2018-12-25] MEDS: LOSARTAN 50 MG TAB PO SCH (08:39)
[2018-12-25 08:40] VITALS: BP 175/72
--- NOTE | 2018-12-25 09:59 | REP ---
REASON FOR EXAM: Status post stabilization of a previously described divergent-type Lisfranc fracture with multiple additional fractures. All interested parties should review the CT report made 12/09/2018. When today's plain film examination, which consists of AP and lateral views is compared to the latest prior plain film examination, also consisting of AP and lateral views of 12/09/2018, today's examination shows overlying casting material obscuring the bony detail. There does not appear to be significant change in the appearance of the divergent-type Lisfranc fracture with multiple additional fractures. The overlying artifact could obscure an additional fracture. If the patient has suffered additional trauma, then repeat CT is recommended. An os calcis fracture cannot be ruled out by this exam. Electronically Signed by Napoleon Sands DO 12/25/2018 09:07 A
[2018-12-25] MEDS: SIMVASTATIN 20 MG TAB PO SCH (20:20)
[2018-12-26] MEDS: ONDANSETRON 4 MG ORAL DISINTEGRATING TAB (Q0162 PER 1MG) SL PRN (03:53)
[2018-12-26 06:00] VITALS: BP 162/72
[2018-12-26] MEDS: HEPARIN SOD (PORCINE) 5000 UNITS/ML VIAL SQ SCH ×2 (08:46→20:18)
[2018-12-26] MEDS: amLODIPine 10 MG TAB PO SCH (09:21)
[2018-12-26] MEDS: FAMOTIDINE 20 MG TAB PO SCH ×2 (09:21→20:15)
[2018-12-26] MEDS: levETIRAcetam 250MG TABLET (KEPPRA) PO SCH ×2 (09:21→20:14)
[2018-12-26] MEDS: LOSARTAN 50 MG TAB PO SCH (09:22)
[2018-12-26] MEDS: lamoTRIgine 100MG TAB PO SCH ×2 (09:22→20:15)
[2018-12-26] MEDS: METOPROLOL TART 25 MG TABLET PO SCH ×2 (09:22→20:16)
[2018-12-26] MEDS: PANTOPRAZOLE 40MG TAB (PROTONIX) PO SCH (09:22)
[2018-12-26] MEDS: HumaLOG INSULIN (NovoLOG) PER UNIT SC SCH ×4 (09:24→20:45)
[2018-12-26] MEDS: SIMVASTATIN 20 MG TAB PO SCH (20:15)
[2018-12-26 22:00] VITALS: BP 188/82
[2018-12-27 06:00] VITALS: BP 178/84
[2018-12-27 06:11] LABS: HEMATOCRIT 39.9 % (42.0-52.0); MEAN CORPUSCULAR HEMOGLOBIN 27.2 pg (27.0-33.0); MEAN CORPUSCULAR HGB CONC 32.6 g/dl (32.0-36.5); MEAN CORPUSCULAR VOLUME 83.5 fl (80.0-96.0); PLATELET COUNT, AUTOMATED 301 10^3/uL (150-450); RED BLOOD COUNT 4.78 10^6/uL (4.30-6.10)
[2018-12-27 06:39] LABS: CALCIUM LEVEL 8.9 MG/DL (8.8-10.2); CREATININE FOR GFR 1.68 MG/DL (0.70-1.30); GLOMERULAR FILTRATION RATE 44.3 (>49); POTASSIUM SERUM 3.9 MEQ/L (3.5-5.1)
[2018-12-27] MEDS: HEPARIN SOD (PORCINE) 5000 UNITS/ML VIAL SQ SCH ×2 (09:00→20:37)
[2018-12-27] MEDS: HumaLOG INSULIN (NovoLOG) PER UNIT SC SCH ×4 (09:21→20:29)
[2018-12-27] MEDS: PANTOPRAZOLE 40MG TAB (PROTONIX) PO SCH (09:22)
[2018-12-27] MEDS: amLODIPine 10 MG TAB PO SCH (09:22)
[2018-12-27] MEDS: lamoTRIgine 100MG TAB PO SCH ×2 (09:22→20:38)
[2018-12-27] MEDS: FAMOTIDINE 20 MG TAB PO SCH ×2 (09:22→20:38)
[2018-12-27] MEDS: levETIRAcetam 250MG TABLET (KEPPRA) PO SCH ×2 (09:22→20:37)
[2018-12-27] MEDS: LOSARTAN 50 MG TAB PO SCH (09:23)
[2018-12-27] MEDS: METOPROLOL TART 25 MG TABLET PO SCH ×2 (09:23→20:38)
--- NOTE | 2018-12-27 18:40 | CR ---
DATE OF CONSULTATION: 12/27/2018 CHIEF COMPLAINT: Foot pain HISTORY OF PRESENT ILLNESS: This is a 63-year-old male who on 12/07/2018 sustained a mechanical fall. He did have an x-ray done at this time and was placed into a posterior splint. It does sound like the patient has been walking on this some and has had concerning radiographic changes over the past few weeks. He has been admitted to the hospital for acute renal failure. The exact mechanism of the fall is unclear. However, the patient states he has fallen multiple times. The patient does live alone but does have family in the area. He has a dog at home. He has uncontrolled type 2 diabetes and believes his last HgA1c was in the 9-10 range. Overall he does not have significant pain PAST MEDICAL HISTORY: Hypertension, type 2 diabetes, epilepsy. PAST SURGICAL HISTORY: Hernia repair. SOCIAL HISTORY: The patient is a current smoker. He denies alcohol or drug use. ALLERGIES: BEE POLLEN. HOME MEDICATIONS: Keflex, hydrochlorothiazide, lamotrigine, losartan, Mobic, simvastatin, levetiracetam. PHYSICAL EXAMINATION: GENERAL: Well-appearing, answers questions appropriately. PULMONARY: Lungs are clear to auscultation. ABDOMEN: Soft, nontender. CARDIOVASCULAR: Regular rate and rhythm. EXTREMITIES: The patient has no significant tenderness about his mid foot. There is mild swelling. He has decreased sensation at baseline due to diabetic neuropathy but does have sensation intact to light touch. He is able to grossly wiggle his toes. The splint is still in place. IMAGING STUDIES: X-rays and a CT scan are reviewed. Unfortunately, the CT scan cuts are quite poor and needs to be reformatted so it is difficult to get full assessment. There are multiple fractures throughout the cuneiforms and metatarsals and what appears to be lateral dislocation of the lesser metatarsals. Concern for charcot arthropathy. IMPRESSION: Right foot fractures complicated by Charcot arthropathy PLAN: A long discussion was held with the patient. Unfortunately, this is quite a severe problem. It is likely complicated by his diabetes. His initial x-rays do not show evidence of Charcot arthropathy and this may have started out as a lisfranc injury. Unfortunately, his more recent imaging studies suggest he has developed Charcot arthropathy. I would repeat the CT scan and obtain an MRI. I would also check a recent HgA1c. Given the Charcot arthropathy I would not recommend surgery at this time. He is very high risk as a smoker with an elevated HgA1c. Continue with NWB in the splint and follow up with myself at discharge for repeat radiographs. I did discuss his case with his brother who helps care for him and the hospitalist as well. DANNY
[2018-12-27] MEDS: SIMVASTATIN 20 MG TAB PO SCH (20:38)
[2018-12-27 22:00] VITALS: BP 182/88
[2018-12-27] MEDS: ONDANSETRON 4 MG ORAL DISINTEGRATING TAB (Q0162 PER 1MG) SL PRN (23:22)
[2018-12-28 06:00] VITALS: BP 172/80
[2018-12-28] MEDS ORDERED: FUROSEMIDE 20 MG TAB PO SCH (09:00)
[2018-12-28] MEDS: HEPARIN SOD (PORCINE) 5000 UNITS/ML VIAL SQ SCH ×3 (09:00→21:00)
[2018-12-28] MEDS: levETIRAcetam 250MG TABLET (KEPPRA) PO SCH ×2 (10:10→22:27)
[2018-12-28] MEDS: HumaLOG INSULIN (NovoLOG) PER UNIT SC SCH ×4 (10:10→21:00)
[2018-12-28] MEDS: lamoTRIgine 100MG TAB PO SCH ×2 (10:10→22:26)
[2018-12-28] MEDS: amLODIPine 10 MG TAB PO SCH (10:11)
[2018-12-28] MEDS: PANTOPRAZOLE 40MG TAB (PROTONIX) PO SCH (10:11)
[2018-12-28] MEDS: FAMOTIDINE 20 MG TAB PO SCH ×2 (10:12→22:26)
[2018-12-28] MEDS: LOSARTAN 50 MG TAB PO SCH (10:12)
[2018-12-28] MEDS: METOPROLOL TART 25 MG TABLET PO SCH ×2 (10:12→22:27)
[2018-12-28 10:21] LABS: HEMOGLOBIN A1c 8.6 %
--- NOTE | 2018-12-28 11:33 | REP ---
Right foot series: Four views. History: Followup out of splint. Comparison radiographs December 24, 2018. Comparison CT study December 09, 2018. Findings: Four views of the right foot demonstrate divergent type fracture Lisfranc fracture dislocation with dislocation of the second through fifth tarsometatarsal articulations laterally. There is disruption of the medial and middle cuneiform bones with fragmentation. Some fragmentation is seen along the medial aspect of the tarsal navicula and the naviculocuneiform articulation shows subluxation. There is diffuse soft tissue swelling. There does not appear to be a significant change in the position of fragments or tarsometatarsal joints when compared to the most recent prior study of December 24, 2018. Electronically Signed by Leonard Gutierrez MD 12/28/2018 07:34 P
--- NOTE | 2018-12-28 12:28 | REP ---
The prior CT of 12/09/2018 was reviewed. The patient has a known divergent Lisfranc fracture. The degree of divergence o the Lisfranc fracture has increased compared to the prior exam. In addition, the degree of comminution of fractures involving the bases of all metatarsals and cuneiforms 1 through 3 has significantly increased. There is anterior dislocation of the 2nd through 5th metatarsals. There is evidence of minimal periosteal reaction along the diaphysis of metatarsals 1 through 3 and representing a change from the prior exam. Secondary to the marked degree of abnormalities with comminution, periosteal reaction, divergent Lisfranc fracture, and dislocation, additional fractures cannot be ruled out given the marked superimposition of the osseous structures and calcific densities. IMPRESSION: Significantly worsened findings as described above. Periosteal reaction likely secondary to reactive periosteum rather than improved healing due to the marked abnormalities. Whether a finding is secondary to a neuropathic etiology such as Charcot's joint or a secondary purely due to trauma cannot be stated by this exam. Clinical correlation is necessary. Electronically Signed by Napoleon Sands DO 12/28/2018 05:07 P
[2018-12-28 14:00] VITALS: BP 173/74
[2018-12-28 22:00] VITALS: BP 150/72
[2018-12-28] MEDS: SIMVASTATIN 20 MG TAB PO SCH (22:26)
[2018-12-29 06:00] VITALS: BP 166/73
[2018-12-29 06:00] LABS: HEMATOCRIT 40.2 % (42.0-52.0); HEMOGLOBIN 13.3 g/dl (13.5-17.5); MEAN CORPUSCULAR HEMOGLOBIN 27.5 pg (27.0-33.0); MEAN CORPUSCULAR HGB CONC 33.1 g/dl (32.0-36.5); MEAN CORPUSCULAR VOLUME 83.2 fl (80.0-96.0); PLATELET COUNT, AUTOMATED 295 10^3/uL (150-450); RED BLOOD COUNT 4.83 10^6/uL (4.30-6.10); WHITE BLOOD COUNT 12.1 10^3/uL (4.0-10.0)
[2018-12-29 06:23] LABS: CALCIUM LEVEL 8.6 MG/DL (8.8-10.2); CREATININE FOR GFR 1.69 MG/DL (0.70-1.30); POTASSIUM SERUM 3.6 MEQ/L (3.5-5.1)
[2018-12-29] MEDS: HumaLOG INSULIN (NovoLOG) PER UNIT SC SCH ×4 (08:49→20:19)
[2018-12-29] MEDS: levETIRAcetam 250MG TABLET (KEPPRA) PO SCH ×2 (08:50→20:26)
[2018-12-29] MEDS: FAMOTIDINE 20 MG TAB PO SCH ×2 (08:54→20:25)
[2018-12-29] MEDS: lamoTRIgine 100MG TAB PO SCH ×2 (08:54→20:25)
[2018-12-29] MEDS: PANTOPRAZOLE 40MG TAB (PROTONIX) PO SCH ×2 (08:54→20:24)
[2018-12-29] MEDS: LOSARTAN 50 MG TAB PO SCH (08:54)
[2018-12-29] MEDS: METOPROLOL TART 25 MG TABLET PO SCH ×2 (08:55→20:25)
[2018-12-29] MEDS: amLODIPine 10 MG TAB PO SCH (08:55)
[2018-12-29] MEDS: HEPARIN SOD (PORCINE) 5000 UNITS/ML VIAL SQ SCH ×2 (08:56→20:20)
[2018-12-29] MEDS ORDERED: CHLORTHALIDONE 12.5MG PER 1/2 TABLET PO SCH (09:00)
--- NOTE | 2018-12-29 09:31 | REP ---
MRI FOOT WITHOUT CONTRAST: 12/28/2018. Comparison: CT right foot 12/28/2018, 12/09/2018, x-ray 12/28/2018, 12/09/2018, 12/07/2018. Clinical history. Evaluate for Charcot's joint changes. The patient did have trauma 12/09/2018 with dramatic difference in appearance of the foot from 12/07/2018. Lisfranc fracture dislocation of the midfoot with chronic changes on imaging. Technique sagittal STIR, axial and coronal T1 with fat suppressed T2 sequences provided. Findings. Diffuse soft tissue swelling about the entire foot and ankle. There is edema in the proximal shafts of the metatarsals and the fracture, dislocation is noted. There are fractures of the medial and middle cuneiform bones with fragmentation as well as some of the navicular. This is all of this is as seen on that radiographs and CT. There are wispy calcifications on CT suggesting repair of bone. This is difficult to see by MR. I do not see marrow edema in the calcaneus or talus. The visualized portions of distal tibia and fibula intact. Diffuse edema about tarsal articulations that remain. Distal heads of the metatarsals intact and those portions of the phalanges visible intact. Impression: 1. Lisfranc fracture dislocation second through fifth metatarsals laterally and dorsally with fragmentation cuneiforms and portions of the navicular. This is certainly a change from the plain x-ray 12/07/2018 without those visible fractures but with some chronic changes about the Lisfranc joints. I suspect trauma superimposed on a Charcot joint. Electronically Signed by Willy Vasquez MD 12/29/2018 11:19 A
[2018-12-29] MEDS ORDERED: CHLORTHALIDONE 12.5MG PER 1/2 TABLET PO ONE (12:00)
[2018-12-29] MEDS: SUCRALFATE 1 GM TAB PO SCH ×3 (12:50→20:24)
[2018-12-29 14:00] VITALS: BP 155/81
[2018-12-29] MEDS: SIMVASTATIN 20 MG TAB PO SCH (20:26)
[2018-12-30] MEDS: ONDANSETRON 4 MG ORAL DISINTEGRATING TAB (Q0162 PER 1MG) SL PRN (02:55)
[2018-12-30 06:00] VITALS: BP 167/78
[2018-12-30] MEDS: HEPARIN SOD (PORCINE) 5000 UNITS/ML VIAL SQ SCH ×3 (09:00→20:17)
[2018-12-30] MEDS: HumaLOG INSULIN (NovoLOG) PER UNIT SC SCH ×4 (09:25→20:10)
[2018-12-30] MEDS: LOSARTAN 50 MG TAB PO SCH (09:25)
[2018-12-30] MEDS: METOPROLOL TART 25 MG TABLET PO SCH ×2 (09:25→20:16)
[2018-12-30] MEDS: SUCRALFATE 1 GM TAB PO SCH ×4 (09:26→20:16)
[2018-12-30] MEDS: amLODIPine 10 MG TAB PO SCH (09:26)
[2018-12-30] MEDS: lamoTRIgine 100MG TAB PO SCH ×2 (09:26→20:16)
[2018-12-30] MEDS: FAMOTIDINE 20 MG TAB PO SCH ×2 (09:26→20:16)
[2018-12-30] MEDS: levETIRAcetam 250MG TABLET (KEPPRA) PO SCH ×2 (09:26→20:16)
[2018-12-30] MEDS: PANTOPRAZOLE 40MG TAB (PROTONIX) PO SCH ×2 (09:26→20:16)
[2018-12-30] MEDS: CHLORTHALIDONE 25 MG TAB PO SCH (09:27)
[2018-12-30] MEDS: SIMVASTATIN 20 MG TAB PO SCH (20:16)
[2018-12-31 06:10] LABS: HEMATOCRIT 40.9 % (42.0-52.0); HEMOGLOBIN 13.4 g/dl (13.5-17.5); MEAN CORPUSCULAR HEMOGLOBIN 27.6 pg (27.0-33.0); MEAN CORPUSCULAR HGB CONC 32.8 g/dl (32.0-36.5); MEAN CORPUSCULAR VOLUME 84.3 fl (80.0-96.0); PLATELET COUNT, AUTOMATED 294 10^3/uL (150-450); RED BLOOD COUNT 4.85 10^6/uL (4.30-6.10); WHITE BLOOD COUNT 11.7 10^3/uL (4.0-10.0)
[2018-12-31 06:34] LABS: CALCIUM LEVEL 8.9 MG/DL (8.8-10.2); CREATININE FOR GFR 1.68 MG/DL (0.70-1.30); GLOMERULAR FILTRATION RATE 44.3 (>49); POTASSIUM SERUM 3.6 MEQ/L (3.5-5.1)
[2018-12-31] MEDS: HEPARIN SOD (PORCINE) 5000 UNITS/ML VIAL SQ SCH ×2 (09:00→21:00)
[2018-12-31] MEDS: PANTOPRAZOLE 40MG TAB (PROTONIX) PO SCH ×2 (09:03→21:09)
[2018-12-31] MEDS: CHLORTHALIDONE 25 MG TAB PO SCH (09:03)
[2018-12-31] MEDS: HumaLOG INSULIN (NovoLOG) PER UNIT SC SCH ×4 (09:03→21:00)
[2018-12-31] MEDS: SUCRALFATE 1 GM TAB PO SCH ×4 (09:03→21:09)
[2018-12-31] MEDS: lamoTRIgine 100MG TAB PO SCH ×2 (09:04→21:09)
[2018-12-31] MEDS: levETIRAcetam 250MG TABLET (KEPPRA) PO SCH ×2 (09:04→21:09)
[2018-12-31] MEDS: amLODIPine 10 MG TAB PO SCH (09:04)
[2018-12-31] MEDS: METOPROLOL TART 25 MG TABLET PO SCH ×2 (09:04→21:16)
[2018-12-31] MEDS: LOSARTAN 50 MG TAB PO SCH (09:05)
[2018-12-31] MEDS: FAMOTIDINE 20 MG TAB PO SCH ×2 (09:05→21:09)
--- NOTE | 2018-12-31 11:34 | IPNPDOC ---
Date Seen The patient was seen on 12/31/18. Progress Note SUBJECTIVE: Patient is a 63-year-old male seen and examined this morning. He was working with nursing on learning how to transfer with the [place] lift. We had a family meeting with his brother the day before, was adamant of taking the patient home and he will learn everything he needs to be his primary caregiver. The patient's brother will start today working with the patient and physical therapy how to transfer the patient appropriately. There was no other concerns or complaints today. OBJECTIVE: PHYSICAL EXAMINATION: VITAL SIGNS: Please see below. GENERAL: 63-year-old pleasant male sitting up in his chair, no acute distress and answering questions. HEENT: Atraumatic normocephalic pupils are equal round and reactive moist mucous membranes with no JVD noted CARDIOVASCULAR: S1-S2 sounds present no audible murmurs rubs or gallops noted. RESPIRATORY: Clear to auscultate bilaterally no audible wheezing rhonchi or rales noted. ABDOMINAL: Morbidly obese abdomen soft nontender with positive bowel sounds in all 4 quadrants EXTREMITIES: No lower extremity edema. soft cast noted in his right lower extremity. with minimal swelling on the left lower leg. LABORATORY DATA, IMAGING STUDIES, MICROBIOLOGY: Please see below. Head CT: Essentially unremarkable CT examination of the brain. Chest CT: Stable CT findings. There is adenopathy as described above. There is cholelithiasis. There is a partially imaged right renal cyst. There is benign bilateral adrenal gland thickening. Cervical spine CT: Chronic changes, as described above. Foot x-ray: Probable Lisfranc fracture Ankle x-rays: Probable circumferential soft tissue edema. This should be confirmed clinically. Otherwise, essentially negative right ankle. CT extremity: 1. Fractures of the medial and intermediate cuneiforms. Lateral subluxation of the second through fifth proximal metatarsals relative to the tarsal bones consistent with disruption of Lisfranc joints. Fracture medial aspect of the tarsal navicular bone. 2. Diffuse soft tissue edema in the foot and visualized ankle. She only uses them only 12/17/18 CT abdomen Impression: 1. No acute abdominopelvic pathology appreciated. 2. Cholelithiasis. 3. Hypo and hyperdense round renal lesions likely representing simple and complex cysts similar to prior examination. 4. No ascites. No focal inflammatory stranding. No adenopathy. DVT prophylaxis ordered?: Yes Heparin ASSESSMENT AND PLAN: This is a 63-year-old male with right foot fracture secondary to fall related to orthostasis. PROBLEMS: Fall possibly secondary to syncope/ Orthostasis -presented with symptoms of vertigo and describes orthostasis upon standing -PT attempted vestibular maneuvers but were negative -monitor his blood pressure and medications -ekg -AL interval <200ms may continue metoprolol. -lamictal has a known side effect of syncope Leukocytosis (Stable) -WBC is fluctuating since admission. -afebrile, wNL heart rate, clinically appears stable not septic. -Not on antibiotics, do not believe is indicated at this time -continue to monitor. Hypertension (improving) -c/w metoprolol 25 mg PO BID -continue amlodipine 10MG DAILY (there is a known side effect of lower extermity edema, will monitor) -continue to monitor orthostats -c/w home dose 100mg daily monitor XAVI + Chorthalidone 25mg PO daily Acute kidney injury (Stable) -Possibly secondary to urinary retention -continue to monitor. s/p Urinary retention - s/p Ballard Catheter; has been urinating without difficulty Right Lisfranc fracture-dislocation -orthopedic surgery consulted: follow-up outpatient, continue in soft cast -pain control- Ultram -continue to work with PT and OT, nonweightbearing on his splint for 2wks then may be touchdown weight with boot in 2 weeks after she follow-up with him. Diabetes mellitus -c/w ISS -HOLD home metformin Morbid obesity -Complicates care Gastroesophageal reflux disease c/w pantoprazole BID Seizure disorder: -c/w with home Keppra, lamictal Dyslipidemia c/w Zocor Nicotine dependence c/w NicoDerm cessation counseling provided DVT ppx: Heparin PT/OT -continue to work with PT/OT for clearance prior to going home Disposition: - ALC status, awaiting PT clearance I saw and evaluated the patient. I agree with the findings and plan of care as documented in the above note VS, I&O, 24H, Fishbone Vital Signs/I&O Vital Signs Date Time Temp Pulse Resp B/P (MAP) Pulse Ox O2 Delivery O2 Flow Rate FiO2 12/31/18 09:04 86 148/80 12/30/18 06:00 97.6 19 94 I&O- Last 24 Hours up to 6 AM 12/31/18 06:00 Intake Total 1020 ml Output Total 1600 ml Balance -580 ml Laboratory Data 24H LABS Laboratory Tests 2 12/30/18 11:41: Bedside Glucose (Misc Panel) 174H 12/30/18 16:58: Bedside Glucose (Misc Panel) 238H 12/30/18 19:50: Bedside Glucose (Misc Panel) 179H 12/31/18 05:37: Nucleated Red Blood Cells % (auto) 0.0, Anion Gap 6L, Glomerular Filtration Rate 44.3L, Blood Urea Nitrogen 23H, Creatinine 1.68H, Sodium Level 140, Potassium Level 3.6, Chloride Level 107, Carbon Dioxide Level 27, Calcium Level 8.9 CBC/BMP Laboratory Tests 12/31/18 05:37 Red Blood Count 4.85, Mean Corpuscular Volume 84.3, Mean Corpuscular Hemoglobin 27.6, Mean Corpuscular Hemoglobin Concent 32.8, Red Cell Distribution Width 13.5, Calcium Level 8.9 PB SOUZA DO Dec 31, 2018 11:34 ANA DOWNEY MD Jan 01, 2019 16:11
[2018-12-31] MEDS: SIMVASTATIN 20 MG TAB PO SCH (21:09)
[2018-12-31 22:00] VITALS: BP 142/88
[2019-01-01 06:00] VITALS: BP 140/78
[2019-01-01] MEDS: HumaLOG INSULIN (NovoLOG) PER UNIT SC SCH ×4 (08:49→21:00)
[2019-01-01] MEDS: SUCRALFATE 1 GM TAB PO SCH ×4 (08:50→20:08)
[2019-01-01] MEDS: levETIRAcetam 250MG TABLET (KEPPRA) PO SCH ×2 (08:52→20:07)
[2019-01-01] MEDS: LOSARTAN 50 MG TAB PO SCH (08:52)
[2019-01-01] MEDS: PANTOPRAZOLE 40MG TAB (PROTONIX) PO SCH ×2 (08:53→20:08)
[2019-01-01] MEDS: amLODIPine 10 MG TAB PO SCH (08:53)
[2019-01-01] MEDS: FAMOTIDINE 20 MG TAB PO SCH ×2 (08:53→20:08)
[2019-01-01] MEDS: METOPROLOL TART 25 MG TABLET PO SCH ×2 (08:53→20:08)
[2019-01-01] MEDS: CHLORTHALIDONE 25 MG TAB PO SCH (08:53)
[2019-01-01] MEDS: HEPARIN SOD (PORCINE) 5000 UNITS/ML VIAL SQ SCH ×2 (08:54→21:00)
[2019-01-01] MEDS: lamoTRIgine 100MG TAB PO SCH ×2 (08:54→20:08)
[2019-01-01] MEDS: SIMVASTATIN 20 MG TAB PO SCH (20:07)
[2019-01-02 06:00] VITALS: BP 150/64
[2019-01-02] MEDS: HEPARIN SOD (PORCINE) 5000 UNITS/ML VIAL SQ SCH ×3 (09:00→20:09)
[2019-01-02] MEDS: levETIRAcetam 250MG TABLET (KEPPRA) PO SCH ×2 (09:05→20:05)
[2019-01-02] MEDS: HumaLOG INSULIN (NovoLOG) PER UNIT SC SCH ×4 (09:05→20:06)
[2019-01-02] MEDS: PANTOPRAZOLE 40MG TAB (PROTONIX) PO SCH ×2 (09:06→20:05)
[2019-01-02] MEDS: lamoTRIgine 100MG TAB PO SCH ×2 (09:06→20:05)
[2019-01-02] MEDS: amLODIPine 10 MG TAB PO SCH (09:06)
[2019-01-02] MEDS: FAMOTIDINE 20 MG TAB PO SCH ×2 (09:06→20:05)
[2019-01-02] MEDS: LOSARTAN 50 MG TAB PO SCH (09:07)
[2019-01-02] MEDS: SUCRALFATE 1 GM TAB PO SCH ×4 (09:07→20:05)
[2019-01-02] MEDS: CHLORTHALIDONE 25 MG TAB PO SCH (09:07)
[2019-01-02] MEDS: METOPROLOL TART 25 MG TABLET PO SCH ×2 (09:07→20:05)
[2019-01-02] MEDS: SIMVASTATIN 20 MG TAB PO SCH (20:05)
[2019-01-03 06:00] VITALS: BP 160/60
[2019-01-03] MEDS: HumaLOG INSULIN (NovoLOG) PER UNIT SC SCH ×4 (08:59→20:00)
[2019-01-03] MEDS: PANTOPRAZOLE 40MG TAB (PROTONIX) PO SCH ×2 (08:59→21:27)
[2019-01-03] MEDS: SUCRALFATE 1 GM TAB PO SCH ×4 (08:59→21:28)
[2019-01-03] MEDS: CHLORTHALIDONE 25 MG TAB PO SCH (09:00)
[2019-01-03] MEDS: lamoTRIgine 100MG TAB PO SCH ×2 (09:00→21:27)
[2019-01-03] MEDS: levETIRAcetam 250MG TABLET (KEPPRA) PO SCH ×2 (09:00→21:27)
[2019-01-03] MEDS: amLODIPine 10 MG TAB PO SCH (09:00)
[2019-01-03] MEDS: HEPARIN SOD (PORCINE) 5000 UNITS/ML VIAL SQ SCH ×2 (09:00→21:00)
[2019-01-03] MEDS: FAMOTIDINE 20 MG TAB PO SCH ×2 (09:00→21:28)
[2019-01-03] MEDS: METOPROLOL TART 25 MG TABLET PO SCH ×2 (09:00→21:28)
[2019-01-03] MEDS: LOSARTAN 50 MG TAB PO SCH (09:00)
[2019-01-03] MEDS: SIMVASTATIN 20 MG TAB PO SCH (21:27)
[2019-01-04 06:00] VITALS: BP 168/78
[2019-01-04] MEDS: HEPARIN SOD (PORCINE) 5000 UNITS/ML VIAL SQ SCH ×3 (09:00→21:10)
[2019-01-04] MEDS: HumaLOG INSULIN (NovoLOG) PER UNIT SC SCH ×4 (09:22→21:00)
[2019-01-04] MEDS: FAMOTIDINE 20 MG TAB PO SCH ×2 (09:23→21:10)
[2019-01-04] MEDS: SUCRALFATE 1 GM TAB PO SCH ×4 (09:23→21:10)
[2019-01-04] MEDS: levETIRAcetam 250MG TABLET (KEPPRA) PO SCH ×2 (09:23→21:11)
[2019-01-04] MEDS: PANTOPRAZOLE 40MG TAB (PROTONIX) PO SCH ×2 (09:23→21:11)
[2019-01-04] MEDS: CHLORTHALIDONE 25 MG TAB PO SCH (09:23)
[2019-01-04] MEDS: METOPROLOL TART 25 MG TABLET PO SCH ×2 (09:27→21:11)
[2019-01-04] MEDS: LOSARTAN 50 MG TAB PO SCH (09:27)
[2019-01-04] MEDS: amLODIPine 10 MG TAB PO SCH (09:27)
[2019-01-04] MEDS: lamoTRIgine 100MG TAB PO SCH ×2 (09:28→21:10)
[2019-01-04] MEDS: SIMVASTATIN 20 MG TAB PO SCH (21:13)
[2019-01-04 22:00] VITALS: BP 164/78
[2019-01-05 06:00] VITALS: BP 159/84
[2019-01-05] MEDS: levETIRAcetam 250MG TABLET (KEPPRA) PO SCH ×2 (08:58→22:02)
[2019-01-05] MEDS: HumaLOG INSULIN (NovoLOG) PER UNIT SC SCH ×4 (08:59→21:00)
[2019-01-05] MEDS: HEPARIN SOD (PORCINE) 5000 UNITS/ML VIAL SQ SCH ×2 (09:00→21:00)
[2019-01-05] MEDS: FAMOTIDINE 20 MG TAB PO SCH ×2 (09:02→22:03)
[2019-01-05] MEDS: SUCRALFATE 1 GM TAB PO SCH ×4 (09:03→22:03)
[2019-01-05] MEDS: lamoTRIgine 100MG TAB PO SCH ×2 (09:03→22:02)
[2019-01-05] MEDS: CHLORTHALIDONE 25 MG TAB PO SCH (09:03)
[2019-01-05] MEDS: PANTOPRAZOLE 40MG TAB (PROTONIX) PO SCH ×2 (09:03→22:03)
[2019-01-05] MEDS: METOPROLOL TART 25 MG TABLET PO SCH ×2 (09:04→22:05)
[2019-01-05] MEDS: LOSARTAN 50 MG TAB PO SCH (09:04)
[2019-01-05] MEDS: amLODIPine 10 MG TAB PO SCH (09:04)
--- NOTE | 2019-01-05 17:23 | IPNPDOC ---
Date Seen The patient was seen on 01/05/19. Progress Note SUBJECTIVE: Brother and him continue to work PT to make him safe to return home. He does admits to some nausea, and spitting up in the morning. He admits to having some postnasal drip that might not help. patient denies chest pain, shortness, breath, vomiting, fevers, chills. OBJECTIVE: PHYSICAL EXAMINATION: VITAL SIGNS: Please see below. GENERAL: 63-year-old pleasant male sitting up in his chair, no acute distress and answering questions. HEENT: Atraumatic normocephalic pupils are equal round and reactive moist mucous membranes with no JVD noted CARDIOVASCULAR: S1-S2 sounds present no audible murmurs rubs or gallops noted. RESPIRATORY: Clear to auscultate bilaterally no audible wheezing rhonchi or rales noted. ABDOMINAL: Morbidly obese abdomen soft nontender with positive bowel sounds in all 4 quadrants EXTREMITIES: No lower extremity edema. soft cast noted in his right lower extremity. with minimal swelling on the left lower leg. LABORATORY DATA, IMAGING STUDIES, MICROBIOLOGY: Please see below. Head CT: Essentially unremarkable CT examination of the brain. Chest CT: Stable CT findings. There is adenopathy as described above. There is cholelithiasis. There is a partially imaged right renal cyst. There is benign bilateral adrenal gland thickening. Cervical spine CT: Chronic changes, as described above. Foot x-ray: Probable Lisfranc fracture Ankle x-rays: Probable circumferential soft tissue edema. This should be confirmed clinically. Otherwise, essentially negative right ankle. CT extremity: 1. Fractures of the medial and intermediate cuneiforms. Lateral subluxation of the second through fifth proximal metatarsals relative to the tarsal bones consistent with disruption of Lisfranc joints. Fracture medial aspect of the tarsal navicular bone. 2. Diffuse soft tissue edema in the foot and visualized ankle. She only uses them only 12/17/18 CT abdomen Impression: 1. No acute abdominopelvic pathology appreciated. 2. Cholelithiasis. 3. Hypo and hyperdense round renal lesions likely representing simple and complex cysts similar to prior examination. 4. No ascites. No focal inflammatory stranding. No adenopathy. DVT prophylaxis ordered?: Yes Heparin ASSESSMENT AND PLAN: This is a 63-year-old male with right foot fracture secondary to fall related to orthostasis. PROBLEMS: Fall possibly secondary to syncope/ Orthostasis -presented with symptoms of vertigo and describes orthostasis upon standing -PT attempted vestibular maneuvers but were negative -monitor his blood pressure and medications -ekg -HI interval <200ms may continue metoprolol. -lamictal has a known side effect of syncope Leukocytosis (Stable) -WBC is fluctuating since admission. -afebrile, wNL heart rate, clinically appears stable not septic. -Not on antibiotics, do not believe is indicated at this time -continue to monitor. Hypertension (improving) -c/w metoprolol 25 mg PO BID -continue amlodipine 10MG DAILY (there is a known side effect of lower extermity edema, will monitor) -continue to monitor orthostats -c/w home dose 100mg daily monitor XAVI + Chorthalidone 25mg PO daily Acute kidney injury (Stable) -Possibly secondary to urinary retention -continue to monitor. s/p Urinary retention - s/p Ballard Catheter; has been urinating without difficulty Right Lisfranc fracture-dislocation -orthopedic surgery consulted: follow-up outpatient, continue in soft cast -pain control- Ultram -continue to work with PT and OT, nonweightbearing on his splint for 2wks then may be touchdown weight with boot in 2 weeks after she follow-up with him. -The beneficiary requires positioning of the body and weighs not feasible with ordinary bed in order to alleviate pain and the beneficiary requires frequent changes in body position and/or has an immediate need for change in body position. Diabetes mellitus -c/w ISS -HOLD home metformin Morbid obesity -Complicates care Gastroesophageal reflux disease c/w pantoprazole BID -Start Loratidine possible post nasal drip? exacerbating Seizure disorder: -c/w with home Keppra, lamictal Dyslipidemia c/w Zocor Nicotine dependence c/w NicoDerm cessation counseling provided DVT ppx: Heparin Gait Instability -PT/OT -Currently wheelchair-bound will transition to slide board transfers will benefit with a drop arm -Will benefit from commode. -continue to work with PT/OT for clearance prior to going home Disposition: - ALC status, awaiting PT clearance VS, I&O, 24H, Fishbone Vital Signs/I&O Vital Signs Date Time Temp Pulse Resp B/P (MAP) Pulse Ox O2 Delivery O2 Flow Rate FiO2 01/05/19 09:04 173/76 01/05/19 09:04 67 01/05/19 06:00 97.9 18 95 I&O- Last 24 Hours up to 6 AM 01/05/19 06:00 Intake Total 2040 ml Output Total 2375 ml Balance -335 ml Laboratory Data 24H LABS Laboratory Tests 2 01/04/19 17:17: Bedside Glucose (Misc Panel) 210H 01/04/19 20:26: Bedside Glucose (Misc Panel) 215H 01/05/19 06:18: Bedside Glucose (Misc Panel) 171H 01/05/19 11:15: Bedside Glucose (Misc Panel) 205H 01/05/19 16:41: Bedside Glucose (Misc Panel) 207H PB SOUZA DO Jan 05, 2019 17:23
[2019-01-05] MEDS: LORATADINE 10 MG TAB PO SCH (22:03)
[2019-01-05] MEDS: SIMVASTATIN 20 MG TAB PO SCH (22:03)
[2019-01-06 06:00] VITALS: BP 162/71
[2019-01-06] MEDS: HumaLOG INSULIN (NovoLOG) PER UNIT SC SCH ×4 (08:23→20:06)
[2019-01-06] MEDS: lamoTRIgine 100MG TAB PO SCH ×2 (08:23→20:12)
[2019-01-06] MEDS: PANTOPRAZOLE 40MG TAB (PROTONIX) PO SCH ×2 (08:23→20:11)
[2019-01-06] MEDS: HEPARIN SOD (PORCINE) 5000 UNITS/ML VIAL SQ SCH ×2 (08:24→20:13)
[2019-01-06] MEDS: SUCRALFATE 1 GM TAB PO SCH ×4 (08:24→20:12)
[2019-01-06] MEDS: FAMOTIDINE 20 MG TAB PO SCH ×2 (08:24→20:12)
[2019-01-06] MEDS: amLODIPine 10 MG TAB PO SCH (08:24)
[2019-01-06] MEDS: CHLORTHALIDONE 25 MG TAB PO SCH (08:24)
[2019-01-06] MEDS: levETIRAcetam 250MG TABLET (KEPPRA) PO SCH ×2 (08:24→20:11)
[2019-01-06] MEDS: METOPROLOL TART 25 MG TABLET PO SCH ×2 (08:25→20:12)
[2019-01-06] MEDS: LOSARTAN 50 MG TAB PO SCH (08:25)
[2019-01-06 09:09] LABS: HEMATOCRIT 45.8 % (42.0-52.0); MEAN CORPUSCULAR HEMOGLOBIN 27.5 pg (27.0-33.0); MEAN CORPUSCULAR HGB CONC 32.8 g/dl (32.0-36.5); PLATELET COUNT, AUTOMATED 329 10^3/uL (150-450); RED BLOOD COUNT 5.45 10^6/uL (4.30-6.10); WHITE BLOOD COUNT 12.5 10^3/uL (4.0-10.0)
[2019-01-06 09:40] LABS: CALCIUM LEVEL 8.8 MG/DL (8.8-10.2); CREATININE FOR GFR 1.87 MG/DL (0.70-1.30); GLOMERULAR FILTRATION RATE 39.1 (>49); POTASSIUM SERUM 3.8 MEQ/L (3.5-5.1)
[2019-01-06] MEDS: LORATADINE 10 MG TAB PO SCH (20:12)
[2019-01-06] MEDS: SIMVASTATIN 20 MG TAB PO SCH (20:12)
[2019-01-07] MEDS: HumaLOG INSULIN (NovoLOG) PER UNIT SC SCH ×4 (08:48→21:00)
[2019-01-07] MEDS: levETIRAcetam 250MG TABLET (KEPPRA) PO SCH ×2 (08:49→21:25)
[2019-01-07] MEDS: SUCRALFATE 1 GM TAB PO SCH ×4 (08:49→21:25)
[2019-01-07] MEDS: lamoTRIgine 100MG TAB PO SCH ×2 (08:49→21:25)
[2019-01-07] MEDS: HEPARIN SOD (PORCINE) 5000 UNITS/ML VIAL SQ SCH ×3 (08:49→21:00)
[2019-01-07] MEDS: CHLORTHALIDONE 25 MG TAB PO SCH (08:49)
[2019-01-07] MEDS: FAMOTIDINE 20 MG TAB PO SCH ×2 (08:49→21:25)
[2019-01-07] MEDS: PANTOPRAZOLE 40MG TAB (PROTONIX) PO SCH ×2 (08:49→21:31)
[2019-01-07] MEDS: METOPROLOL TART 25 MG TABLET PO SCH ×2 (08:50→21:26)
[2019-01-07] MEDS: amLODIPine 10 MG TAB PO SCH (08:50)
[2019-01-07] MEDS: LOSARTAN 50 MG TAB PO SCH (08:50)
[2019-01-07] MEDS: LORATADINE 10 MG TAB PO SCH (21:25)
[2019-01-07] MEDS: SIMVASTATIN 20 MG TAB PO SCH (21:25)
[2019-01-08 06:00] VITALS: BP 150/70
[2019-01-08] MEDS: HEPARIN SOD (PORCINE) 5000 UNITS/ML VIAL SQ SCH ×2 (09:00→20:55)
[2019-01-08] MEDS: SUCRALFATE 1 GM TAB PO SCH ×4 (09:03→20:54)
[2019-01-08] MEDS: PANTOPRAZOLE 40MG TAB (PROTONIX) PO SCH ×2 (09:03→21:00)
[2019-01-08] MEDS: LOSARTAN 50 MG TAB PO SCH (09:03)
[2019-01-08] MEDS: amLODIPine 10 MG TAB PO SCH (09:04)
[2019-01-08] MEDS: FAMOTIDINE 20 MG TAB PO SCH ×2 (09:04→20:54)
[2019-01-08] MEDS: levETIRAcetam 250MG TABLET (KEPPRA) PO SCH ×2 (09:04→20:54)
[2019-01-08] MEDS: CHLORTHALIDONE 25 MG TAB PO SCH (09:04)
[2019-01-08] MEDS: HumaLOG INSULIN (NovoLOG) PER UNIT SC SCH ×4 (09:04→20:55)
[2019-01-08] MEDS: lamoTRIgine 100MG TAB PO SCH ×2 (09:05→20:54)
[2019-01-08] MEDS: METOPROLOL TART 25 MG TABLET PO SCH ×2 (09:05→20:54)
[2019-01-08 14:00] VITALS: BP 140/60
[2019-01-08] MEDS: LORATADINE 10 MG TAB PO SCH (20:53)
[2019-01-08] MEDS: SIMVASTATIN 20 MG TAB PO SCH (20:53)
[2019-01-09 06:00] VITALS: BP 184/82
[2019-01-09] MEDS: METOPROLOL TART 25 MG TABLET PO SCH ×2 (07:02→20:26)
[2019-01-09] MEDS: amLODIPine 10 MG TAB PO SCH (07:03)
[2019-01-09] MEDS: LOSARTAN 50 MG TAB PO SCH (07:03)
[2019-01-09] MEDS: CHLORTHALIDONE 25 MG TAB PO SCH (08:48)
[2019-01-09] MEDS: lamoTRIgine 100MG TAB PO SCH ×2 (08:48→20:26)
[2019-01-09] MEDS: FAMOTIDINE 20 MG TAB PO SCH ×2 (08:48→20:25)
[2019-01-09] MEDS: PANTOPRAZOLE 40MG TAB (PROTONIX) PO SCH ×2 (08:48→20:26)
[2019-01-09] MEDS: HumaLOG INSULIN (NovoLOG) PER UNIT SC SCH ×4 (08:48→20:27)
[2019-01-09] MEDS: SUCRALFATE 1 GM TAB PO SCH ×4 (08:48→20:25)
[2019-01-09] MEDS: levETIRAcetam 250MG TABLET (KEPPRA) PO SCH ×2 (08:48→20:26)
[2019-01-09 08:49] VITALS: BP 179/87
[2019-01-09] MEDS: HEPARIN SOD (PORCINE) 5000 UNITS/ML VIAL SQ SCH ×2 (08:49→20:27)
[2019-01-09 18:44] VITALS: BP 139/74
[2019-01-09] MEDS: LORATADINE 10 MG TAB PO SCH (20:25)
[2019-01-09] MEDS: SIMVASTATIN 20 MG TAB PO SCH (20:26)
[2019-01-10 06:00] VITALS: BP 167/71
[2019-01-10] MEDS: CHLORTHALIDONE 25 MG TAB PO SCH (08:24)
[2019-01-10] MEDS: levETIRAcetam 250MG TABLET (KEPPRA) PO SCH (08:24)
[2019-01-10] MEDS: LOSARTAN 50 MG TAB PO SCH (08:25)
[2019-01-10] MEDS: lamoTRIgine 100MG TAB PO SCH (08:25)
[2019-01-10] MEDS: amLODIPine 10 MG TAB PO SCH (08:25)
[2019-01-10] MEDS: SUCRALFATE 1 GM TAB PO SCH ×2 (08:25→12:06)
[2019-01-10] MEDS: FAMOTIDINE 20 MG TAB PO SCH (08:25)
[2019-01-10 08:26] VITALS: BP 167/71
[2019-01-10] MEDS: METOPROLOL TART 25 MG TABLET PO SCH (08:26)
[2019-01-10] MEDS: HumaLOG INSULIN (NovoLOG) PER UNIT SC SCH ×2 (08:26→12:06)
[2019-01-10] MEDS: PANTOPRAZOLE 40MG TAB (PROTONIX) PO SCH (08:26)
[2019-01-10] MEDS: HEPARIN SOD (PORCINE) 5000 UNITS/ML VIAL SQ SCH (08:27)
--- NOTE | 2019-01-10 12:45 | DS.PDOC ---
Discharge Summary General Date of Admission Dec 13, 2018 at 15:01 Date of Discharge 01/10/19 Specialist/Consultants Involve Dr. Ivonne Escamilla of Orthopedic Surgery Discharge Summary PROCEDURES PERFORMED DURING STAY: None. ADMITTING/DISCHARGE DIAGNOSES: Right Lisfranc fracture/dislocation History of diabetes mellitus History of chronic kidney disease History of epilepsy History of hypertension COMPLICATIONS/CHIEF COMPLAINT: Acute Renal Failure. HISTORY OF PRESENT ILLNESS: . 63-year-old male with past medical history of hypertension, diabetes mellitus, chronic kidney disease, epilepsy was admitted to [facility] secondary to a mechanical fall. He was found to have a right Lisfranc fracture/dislocation. He was evaluated by orthopedic surgery who deemed the patient a non-candidate for surgical intervention. Supportive therapy was recommended. The patient was also evaluated by physical therapy. At this time, the patient states that he is doing much better and is eager to return home. He is to follow-up with orthopedic surgery as scheduled for further evaluation and monitoring. PFS/case management has arranged supportive care for the patient upon discharge. I have also advised patient follow-up with his primary care physician within 7 days. He is to return to the ER for any acute emergency. ALLERGIES: Please see below. PHYSICAL EXAMINATION ON DISCHARGE: VITAL SIGNS: Please see below. GENERAL: 63-year-old pleasant male sitting up in his chair, no acute distress and answering questions. HEENT: Atraumatic normocephalic pupils are equal round and reactive moist mucous membranes with no JVD noted CARDIOVASCULAR: S1-S2 sounds present no audible murmurs rubs or gallops noted. RESPIRATORY: Clear to auscultate bilaterally no audible wheezing rhonchi or rales noted. ABDOMINAL: Morbidly obese abdomen soft nontender with positive bowel sounds in all 4 quadrants EXTREMITIES: No lower extremity edema. soft cast noted in his right lower extremity. with minimal swelling on the left lower leg. LABORATORY DATA: Please see below. IMAGING: Right foot two views: There is widening of the space between the great toe and second digit metatarsals compatible with Lisfranc fracture. There is soft tissue edema over the dorsum. Impression: Probable Lisfranc fracture. Right ankle four views: I suspect there is circumferential soft tissue edema. This should be confirmed clinically. There is no fracture or dislocation. Mineralization joint spaces are normal. There are no calcifications or foreign bodies. There is a calcaneal Achilles spur. Impression: Probable circumferential soft tissue edema. This should be confirmed clinically. Otherwise, essentially negative right ankle. EXAM: CT Right Lower Extremity Without Contrast, Foot EXAM DATE/TIME: 12/09/2018 5:36 PM CLINICAL HISTORY: 63 years old, male; Injury or trauma; Fall; Initial encounter; Blunt trauma; Foot; Right; Additional info: Fracture TECHNIQUE: Imaging protocol: CT of the Right lower extremity without contrast was performed. Exam focused on the foot. Coronal and sagittal reformatted images were created and reviewed. Radiation optimization: All CT scans at this facility use at least one of these dose optimization techniques: automated exposure control; mA and/or kV adjustment per patient size (includes targeted exams where dose is matched to clinical indication); or iterative reconstruction. COMPARISON: CR Foot, Ap, Lat 12/09/2018 2:33 PM FINDINGS: Bones/joints: Fractures of the medial and intermediate cuneiforms. Lateral subluxation of the second through fifth proximal metatarsals relative to the tarsal bones consistent with disruption of Lisfranc joints. Several small fracture fragments demonstrated between the proximal metatarsals and proximal to the base of the fourth metatarsal. Fracture medial aspect of the tarsal navicular bone. Plantar calcaneal spur. Retrocalcaneal insertional enthesophyte. Soft tissues: Diffuse soft tissue edema in the foot and visualized ankle. IMPRESSION: 1. Fractures of the medial and intermediate cuneiforms. Lateral subluxation of the second through fifth proximal metatarsals relative to the tarsal bones consistent with disruption of Lisfranc joints. Fracture medial aspect of the tarsal navicular bone. 2. Diffuse soft tissue edema in the foot and visualized ankle. Right foot series: Four views. History: Followup out of splint. Comparison radiographs December 24, 2018. Comparison CT study December 09, 2018. Findings: Four views of the right foot demonstrate divergent type fracture Lisfranc fracture dislocation with dislocation of the second through fifth tarsometatarsal articulations laterally. There is disruption of the medial and middle cuneiform bones with fragmentation. Some fragmentation is seen along the medial aspect of the tarsal navicula and the naviculocuneiform articulation shows subluxation. There is diffuse soft tissue swelling. There does not appear to be a significant change in the position of fragments or tarsometatarsal joints when compared to the most recent prior study of December 24, 2018. MRI FOOT WITHOUT CONTRAST: 12/28/2018. Comparison: CT right foot 12/28/2018, 12/09/2018, x-ray 12/28/2018, 12/09/2018, 12/07/2018. Clinical history. Evaluate for Charcot's joint changes. The patient did have trauma 12/09/2018 with dramatic difference in appearance of the foot from 12/07/2018. Lisfranc fracture dislocation of the midfoot with chronic changes on imaging. Technique sagittal STIR, axial and coronal T1 with fat suppressed T2 sequences provided. Findings. Diffuse soft tissue swelling about the entire foot and ankle. There is edema in the proximal shafts of the metatarsals and the fracture, dislocation is noted. There are fractures of the medial and middle cuneiform bones with fragmentation as well as some of the navicular. This is all of this is as seen on that radiographs and CT. There are wispy calcifications on CT suggesting repair of bone. This is difficult to see by MR. I do not see marrow edema in the calcaneus or talus. The visualized portions of distal tibia and fibula intact. Diffuse edema about tarsal articulations that remain. Distal heads of the metatarsals intact and those portions of the phalanges visible intact. Impression: 1. Lisfranc fracture dislocation second through fifth metatarsals laterally and dorsally with fragmentation cuneiforms and portions of the navicular. This is certainly a change from the plain x-ray 12/07/2018 without those visible fractures but with some chronic changes about the Lisfranc joints. I suspect trauma superimposed on a Charcot joint. The prior CT of 12/09/2018 was reviewed. The patient has a known divergent Lisfranc fracture. The degree of divergence o the Lisfranc fracture has increased compared to the prior exam. In addition, the degree of comminution of fractures involving the bases of all metatarsals and cuneiforms 1 through 3 has significantly increased. There is anterior dislocation of the 2nd through 5th metatarsals. There is evidence of minimal periosteal reaction along the diaphysis of metatarsals 1 through 3 and representing a change from the prior exam. Secondary to the marked degree of abnormalities with comminution, periosteal reaction, divergent Lisfranc fracture, and dislocation, additional fractures cannot be ruled out given the marked superimposition of the osseous structures and calcific densities. IMPRESSION: Significantly worsened findings as described above. Periosteal reaction likely secondary to reactive periosteum rather than improved healing due to the marked abnormalities. Whether a finding is secondary to a neuropathic etiology such as Charcot's joint or a secondary purely due to trauma cannot be stated by this exam. Clinical correlation is necessary. PROGNOSIS: Fair ACTIVITY: As tolerated. DIET: 2 g low sodium, renal diet DISCHARGE PLAN: DISPOSITION: . Home DISCHARGE INSTRUCTIONS: Follow-up with PCP within 7 days. Follow-up with orthopedic surgery as sc heduled. Return to the ER for any acute emergencies. DISCHARGE CONDITION: Stable. TIME SPENT ON DISCHARGE: Greater than 30 minutes. Vital Signs/I&Os Vital Signs Date Time Temp Pulse Resp B/P (MAP) Pulse Ox O2 Delivery O2 Flow Rate FiO2 01/10/19 08:26 67 167/71 01/10/19 06:00 98.5 18 96 I&O- Last 24 Hours up to 6 AM 01/10/19 06:00 Intake Total 1700 ml Output Total 1800 ml Balance -100 ml Laboratory Data Labs 24H Laboratory Tests 2 01/09/19 16:57: Bedside Glucose (Misc Panel) 148H 01/09/19 20:21: Bedside Glucose (Misc Panel) 205H 01/10/19 05:48: Bedside Glucose (Misc Panel) 121H FSBS Laboratory Tests Test 01/09/19 16:57 01/09/19 20:21 01/10/19 05:48 Range/Units Bedside Glucose (Misc Panel) 148 205 121 80-115 MG/DL Discharge Medications Scheduled Hydrochlorothiazide (Hydrochlorothiazide) 12.5 Mg Tablet, 12.5 MG PO DAILY, (Reported) Lamotrigine (Lamotrigine) 200 Mg Tab, 200 MG PO BID, (Reported) AM,QHS Lamotrigine (Lamotrigine) 100 Mg Tablet, 100 MG PO QHS, (Reported) TAKE WITH 200MG FOR 300MG QHS Losartan Potassium (Losartan Potassium) 100 Mg Tab, 100 MG PO DAILY, (Reported) Simvastatin (Simvastatin) 20 Mg Tablet, 20 MG PO QHS, (Reported) levETIRAcetam (levETIRAcetam) 500 Mg Tablet, 1,000 MG PO BID, (Reported) Scheduled PRN Epinephrine (Epipen 2-Dinh) 0.3 Mg/0.3 Ml Auto.injct, 1 SYRINGE IM ONCE PRN for ALLERGIC REACTION, (Reported) Nicotine (Nicotine Patch) 14 Mg Patch.td24, 14 MG TD DAILY PRN for SMOKING CESSATION, (Reported) Allergies Coded Allergies: bee pollen (Verified Allergy, Unknown, 12/09/18) OLENA MELENDREZ MD Jan 10, 2019 12:45
== END 2019-01-10 16:16 | disposition home health service (06) | DRG 342 ==
LOC: M ED 13:36 → M ED INP 13:37 → M MSPAV 21:30 → OBSVTOIN 12-13 15:01
PROVIDERS: ADMIT Internal Medicine; ATTEND Internal Medicine
DX: S92.241A Displaced fracture of medial cuneiform of right foot, initial encounter for closed fracture (principal); N17.9 Acute kidney failure, unspecified; E11.65 Type 2 diabetes mellitus with hyperglycemia; E66.01 Morbid (severe) obesity due to excess calories; I10 Essential (primary) hypertension; E11.9 Type 2 diabetes mellitus without complications; B35.1 Tinea unguium; D72.829 Elevated white blood cell count, unspecified; F17.200 Nicotine dependence, unspecified, uncomplicated; S92.251A Displaced fracture of navicular [scaphoid] of right foot, initial encounter for closed fracture; Z66 Do not resuscitate; S93.321A Subluxation of tarsometatarsal joint of right foot, initial encounter; S92.231A Displaced fracture of intermediate cuneiform of right foot, initial encounter for closed fracture; K21.9 Gastro-esophageal reflux disease without esophagitis; R26.89 Other abnormalities of gait and mobility; R42 Dizziness and giddiness; R11.2 Nausea with vomiting, unspecified; G40.909 Epilepsy, unspecified, not intractable, without status epilepticus; R33.9 Retention of urine, unspecified; I95.1 Orthostatic hypotension; W19.XXXA Unspecified fall, initial encounter; Y92.9 Unspecified place or not applicable; Z91.030 Bee allergy status; Z79.1 Long term (current) use of non-steroidal anti-inflammatories (NSAID); Z79.899 Other long term (current) drug therapy; Z79.84 Long term (current) use of oral hypoglycemic drugs; Z68.37 Body mass index [BMI] 37.0-37.9, adult

== ENCOUNTER → 2019-01-20 | Outpatient (REF) | payer OTHER ==
[~2019-01-20] MED LIST changes: +EPIP0.3I2 IM; +HYDR12.55 PO; +KEFL250C11 PO; +LEVE500T5 PO; +MOBI4TAB PO; +NICO14DI24 TD; +SIMV20TA22 PO
[2019-01-20 13:00] LABS: BASO # 0.1 10^3/uL (0.0-0.2); BASO % 0.5 % (0.0-1.0); EOS # 0.2 10^3/uL (0.0-0.5); EOS % 1.5 % (0.0-3.0); HEMATOCRIT 42.2 % (42.0-52.0); HEMOGLOBIN 13.6 g/dl (13.5-17.5); LYMPH # 2.5 10^3/uL (1.5-5.0); LYMPH % 18.8 % (24.0-44.0); MEAN CORPUSCULAR HEMOGLOBIN 27.4 pg (27.0-33.0); MEAN CORPUSCULAR HGB CONC 32.2 g/dl (32.0-36.5); MEAN CORPUSCULAR VOLUME 85.1 fl (80.0-96.0); MONO % 7.8 % (0.0-5.0); NEUTROPHILS # 9.2 10^3/uL (1.5-8.5); NEUTROPHILS % 70.6 % (36.0-66.0); PLATELET COUNT, AUTOMATED 302 10^3/uL (150-450); RED BLOOD COUNT 4.96 10^6/uL (4.30-6.10)
[2019-01-20 13:26] LABS: HEMOGLOBIN A1c 8.3 %
[2019-01-20 13:45] LABS: ALBUMIN 2.7 GM/DL (3.2-5.2); BILIRUBIN,TOTAL 0.2 MG/DL (0.2-1.0); CALCIUM LEVEL 9.2 MG/DL (8.8-10.2); CHOLESTEROL RISK RATIO 3.476 (<5); CREATININE FOR GFR 1.96 MG/DL (0.70-1.30); FOLATE 13.3 NG/ML (>5.4); FREE T4 1.08 NG/DL (0.76-1.46); GLOMERULAR FILTRATION RATE 37.1 (>49); POTASSIUM SERUM 5.3 MEQ/L (3.5-5.1); THYROID STIMULATING HORMONE 4.71 uIU/ML (0.358-3.740); TOTAL 25(OH) VITAMIN D 19.3 NG/ML (30.0-100.0)
== END ==
LOC: M SFHCADAM 10:53
PROVIDERS: ATTEND Family Medicine
DX: I10 Essential (primary) hypertension (principal); E78.2 Mixed hyperlipidemia; E11.8 Type 2 diabetes mellitus with unspecified complications; N18.3 Chronic kidney disease, stage 3 (moderate); E55.9 Vitamin D deficiency, unspecified; E11.42 Type 2 diabetes mellitus with diabetic polyneuropathy